=== PATIENT | male | born 1970 | race Caucasian/White ===

== ENCOUNTER 2022-03-30 14:38 | Emergency (ER) | payer OTHER, SELFPAY ==
[2022-03-30 15:26] VITALS: BP 145/93; PULSE 78; RESP 18; TEMP 37.1; O2SAT 96; BMI 35.6
--- NOTE | 2022-03-30 16:45 | ED_ITS ---
HPI - General Adult General Time Seen by Provider: 16:44 Date Seen: 03/30/22 Chief complaint: Unspecified Complaint, Adult Stated complaint: NEEDS A COVID TEST Time Seen by Provider: 03/30/22 16:37 Source: patient Mode of arrival: ambulatory Limitations: no limitations History of Present Illness HPI narrative: Patient is in the and has been deployed to [facility] Monday morning at 3:00 a.m.. He needs a PCR COVID test prior to travel [facility] he states he was told he had to have a doctor's order which he did not have. Patient has no symptoms of COVID. Patient states he is vaccinated for COVID. Related Data Home Medications Medication Instructions Recorded Confirmed lisinopril 10 mg tablet mg 03/30/22 testosterone cypionate 200 mg/mL mg 03/30/22 intramuscular oil Allergies Allergy/AdvReac Type Severity Reaction Status Date / Time No Known Drug Allergies Allergy Verified 03/30/22 15:30 Review of Systems Status of ROS: Reports: other ( Patient has no current symptoms of any illness, just needs COVID PCR.) PFSH PFS Medical History Hypertension Lymph node enlargement Testicle cancer Surgical History History of orchiectomy Social History Smoking Status: Never smoker Do you use any of these nicotine containing products: None Second hand tobacco smoke exposure: No How often do you have a drink containing alcohol: never How often do you have six or more drinks on one occasion: Never AUDIT-C Alcohol total score: 0 Non-prescribed substance use: denies use service: Yes Exam Const: Vital Signs, click to edit/add: Vital Signs - 24 hr 03/30/22 15:26 Temperature 98.7 F Pulse Rate [Right Radial] 78 Respiratory Rate 18 Blood Pressure [Ri ght Upper Arm] 145/93 H Pulse Oximetry 96 Documenting provider has reviewed patient's vital signs: yes Common normals: no apparent distress General appearance: cooperative and comfortable Eye: Common normals: PERRL and conjunctivae normal Conjunctiva: conjunctiva(e) normal Pupil: PERRL Resp: Common normals: normal respiratory effort and clear to auscultation bilaterally Effort & inspection: able to speak in complete sentences Auscultation: clear to auscultation bilaterally Cardio: Common normals: regular rate and regular rhythm Rate: regular rate Rhythm: regular rhythm Course Course Hospital Course: Will order the COVID PCR for the patient. We will get him registered. He will likely leave before his PCR is done and either pick the results up later or we will get it to him tomorrow when he is down here for work. Vital Signs Vital signs: Initial Vital Signs Temperature 98.7 F 03/30/22 15:26 Temperature Source Temporal Artery Scan 03/30/22 15:26 Pulse Rate 78 03/30/22 15:26 Pulse Rhythm 03/30/22 15:26 Pulse Strength 0+ Absent 03/30/22 15:26 Respiratory Rate 18 03/30/22 15:26 Blood Pressure 145/93 H 03/30/22 15:26 Blood Pressure Mean 110 03/30/22 15:26 Blood Pressure Position Sitting 03/30/22 15:26 Pulse Oximetry 96 03/30/22 15:26 Oxygen Delivery Method 03/30/22 15:26 Vital Signs Temperature 98.7 F 03/30/22 15:26 Pulse Rate 78 03/30/22 15:26 Respiratory Rate 18 03/30/22 15:26 Blood Pressure 145/93 H 03/30/22 15:26 Pulse Oximetry 96 03/30/22 15:26 Temperature 98.7 F 03/30/22 15:26 Pulse Rate 78 03/30/22 15:26 Respiratory Rate 18 03/30/22 15:26 Blood Pressure 145/93 H 03/30/22 15:26 Pulse Oximetry 96 03/30/22 15:26 Medical Decision Making Lab Data Labs: Lab Results 03/30/22 Range/Units 15:35 SARS-CoV-2 (PCR) Negative SARS-CoV-2 (Negative) Discharge Plan Discharge Clinical Impression: Encounter for screening for COVID-19 Condition: Stable Additional Instructions: Your COVID rapid PCR is negative here on testing today. A copy of your test result has been provided. Activity Level: No Restrictions Prescriptions: No Action lisinopril 10 mg tablet 0RF Label Comments: TAKE 1 TABLET BY MOUTH DAILY testosterone cypionate 200 mg/mL oil 0RF Label Comments: ADMINISTER 0.6 ML IN THE MUSCLE WEEKLY Follow Up/Referrals: Jose Manuel Hernandez MD [Primary Care Provider] - Stand Alone Forms: [employer] Info Instructions
[2022-03-30 16:49] LABS: SARS PCR* Negative SARS-CoV-2 (Negative)
== END 2022-03-30 17:31 | disposition home or self-care (01) ==
PROVIDERS: Emergency Provider Family Medicine; PCP Family Medicine
DX: Z11.52 Encounter for screening for COVID-19 (principal)
CPT/HCPCS: 87635; 99281

== ENCOUNTER 2022-04-27 10:36 | Emergency (ER) | payer OTHER, SELFPAY ==
[2022-04-27 10:41] VITALS: BP 145/97; RESP 18; TEMP 36.6; O2SAT 96; BMI 34.9
--- NOTE | 2022-04-27 11:12 | ED.GENADULT ---
HPI - General Adult General Time Seen by Provider: 11:00 Date Seen: 04/27/22 Chief complaint: Unspecified Complaint, Adult Stated complaint: Need PCR test for deployment Source: patient and RN notes reviewed Mode of arrival: ambulatory Limitations: no limitations History of Present Illness HPI narrative: Patient is in the and is deploying to [place]. I had seen him recently for the exact same circumstances. He just needs a PCR test to clear for travel in to [place]. He did end up going to [place] last time I saw him. Right now he has no complaints of being ill, no respiratory symptoms, no concerns. complaint: Needs PCR testing for COVID prior to travel to [place]. Related Data Home Medications Medication Instructions Recorded Confirmed testosterone cypionate 200 mg/mL mg 03/30/22 intramuscular oil Previous Rx's Medication Instructions Recorded lisinopril 10 mg tablet 10 mg PO DAILY #90 tabs 04/13/22 Allergies Allergy/AdvReac Type Severity Reaction Status Date / Time No Known Drug Allergies Allergy Verified 03/30/22 15:30 Review of Systems Narrative: As per HPI PFSH PFS Medical History Hypertension Lymph node enlargement Testicle cancer Surgical History History of orchiectomy Social History Smoking Status: Never smoker Do you use any of these nicotine containing products: None Second hand tobacco smoke exposure: No How often do you have a drink containing alcohol: never How often do you have six or more drinks on one occasion: Never AUDIT-C Alcohol total score: 0 Non-prescribed substance use: denies use service: Yes Exam Const: Vital Signs, click to edit/add: Vital Signs - 24 hr 04/27/22 10:41 Temperature 97.9 F Respiratory Rate 18 Blood Pressure [Ri ght Upper Arm] 145/97 H Pulse Oximetry 96 Oxygen Delivery Me thod Room Air Documenting provider has reviewed patient's vital signs: yes Common normals: no apparent distress, oriented x3, no limitations, healthy appearing and alert Neuro: Common normals: oriented x3 Sensorium/orientation: alert Course Course Hospital Course: We will proceed with obtaining the COVID PCR. We will print the results for the patient and discharge once we have the result. Vital Signs Vital signs: Initial Vital Signs Temperature 97.9 F 04/27/22 10:41 Temperature Source Temporal Artery Scan 04/27/22 10:41 Respiratory Rate 18 04/27/22 10:41 Blood Pressure 145/97 H 04/27/22 10:41 Blood Pressure Mean 113 04/27/22 10:41 Pulse Oximetry 96 04/27/22 10:41 Oxygen Delivery Method 04/27/22 10:41 Vital Signs Temperature 97.9 F 04/27/22 10:41 Respiratory Rate 18 04/27/22 10:41 Blood Pressure 145/97 H 04/27/22 10:41 Pulse Oximetry 96 04/27/22 10:41 Oxygen Delivery Method 04/27/22 10:41 Temperature 97.9 F 04/27/22 10:41 Respiratory Rate 18 04/27/22 10:41 Blood Pressure 145/97 H 04/27/22 10:41 Pulse Oximetry 96 04/27/22 10:41 Oxygen Delivery Method 04/27/22 10:41 Medical Decision Making Lab Data Lab results reviewed: Yes I reviewed the patient's lab results Labs: Lab Results 04/27/22 Range/Units 10:55 SARS-CoV-2 (PCR) Negative SARS-CoV-2 (Negative) Critical Care Time Critical Care Time Critical Care Time: No Discharge Plan Discharge Clinical Impression: Encounter for screening for COVID-19 Patient Disposition: Home, Self-Care Condition: Stable Instructions: COVID-19: Slow the Coronavirus Spread (ED) Prescriptions: No Action testosterone cypionate 200 mg/mL oil Label Comments: ADMINISTER 0.6 ML IN THE MUSCLE WEEKLY lisinopril 10 mg tablet 10 mg PO DAILY Qty: 90 1RF Follow Up/Referrals: Jose Manuel Hernandez MD [Primary Care Provider] - Stand Alone Forms: [employer] Info Instructions
--- NOTE | 2022-04-27 11:29 | ED.NURSE ---
was seen per dr murry. test was done. to call with results. did get registered and left.
[2022-04-27 11:56] LABS: SARS PCR* Negative SARS-CoV-2 (Negative)
--- OUTSIDE RECORDS SUMMARY | 2022-05-04 01:49 | XMS_ITS | Encounter Summary ---
:1970 Author Organization [facility] Address [address] [place] [address]. [place] [address] Care Team Providers Name Role Phone Unavailable Primary Care Provider Unavailable Encounter Details Date Type Department Care Team Description 11/03/2018 Travel Social History Tobacco Use Types Packs/Day Years Used Date Never Smoker Smokeless Tobacco: Never Used Alcohol Use Standard Drinks/Week Comments Yes 0 (1 standard drink = 0.6 oz pure alcoho l) socially Alcohol Habits Answer Date Recorded How often do you have a drink containing alcohol? Not asked How many drinks containing alcohol do you have on a typical Not asked day when you are drinking? How often do you have six or more drinks on one occasion? No t asked Comment: socially 11/03/2018 Sex Assigned at Date Recorded Not on file documented as of this encounter Plan of Treatment Not on filedocumented as of this encounter Visit Diagnoses Not on filedocumented in this encounter
--- OUTSIDE RECORDS SUMMARY | 2022-05-04 01:49 | XMS_ITS | Encounter Summary ---
:1970 Author Organization [facility] Address [address] [place] [address] Support Name Relationship Address Phone TRACY VU Unavailable [address] [place] [address] TRACY VU Unavailable [address] [place] [address] Selected Encounter This section includes the information on record at [place] for the Encounter. Date/Time Encounter Type Encounter Reason Provider Source Description Oct 04, 2021 11:58 Outpatient EMERGENCY DEPT JENNYFER MONTERO AM Encounter [facility] Encounter Template [facility] used by [facility] Lab Results: +/- 30 days of the encounter This section includes the Chemistry and Hematology Lab Results on record with [facility] for the patient. Radiology Reports and Pathology Reports are provided separately, in subsequent sections.Lab Results This section contains the Chemistry/Hematology Results that were resulted 30 days before or 30 daysafter the date of the Encounter. Date/Time Source Result Type Result - Unit Interpretation Reference Range Comment Oct 04, 2021 [facility] COVID-19 AND FLU/RSV DIAG Sp ecimen Type: NASOPHARYNGEAL 12:03 PM PANEL(CEPHEID) Comment: Irina rodriguez GeneXpert (618) Ordering Provid er: JENNYFER MONTERO Report Released Date/Time: Oct 04, 2021 11:22 AM Reporting Lab: [facility] [address] [facility] [address] [facility] [address] Performing Lab: [facility] [address] [facility] [address] COVID-19 (CEPHEID) DETECTED HH Not Detecte d INFLUENZA A (PCR) Not Detected Not Detec louis INFLUENZA B (PCR) Not Detected Not Detec louis RSV (PCR) Not Detected Not Detected Encounter Notes: All associated encounter notes This section contains the clinical notes associated to the Encounter. Date/Time Encounter Note(s) Provider Source Oct 04, 2021 01:14 PM PHYSICIAN EMERGENCY DEPT NOTE: ZHANNA MONTERO [facility] LOCAL TITLE: EMERGENCY DEPT NOTE STANDARD TITLE: PHYSICIAN EMERGENCY DEPT NOTE DATE OF NOTE: OCT 04, 2021@13:14 ENTRY DATE: OCT 04, 2021@13:14:13 AUTHOR: JENNYFER MONTERO EXP COSIGNER: URGENCY: STATUS: COMPLETED COVID-19 CEPHEID: DETECTED H* INFLUENZA A (PCR): Not Detected INFLUENZA B (PCR): Not Detected RSV (PCR): Not Detected COVID-19 Telephone Follow-Up Patient notified of positive COVID-19 test resul t. Symptoms: The patient was asked if in the last 14 days th ey have had new onset of any COVID-19 symptoms. They report the following: No symptoms Within the past 14 days, the patient reports no exposure to someone with a febrile/respiratory illness or someone with a k nown or suspected case of COVID-19 (within 6 feet for > 15 minutes). Care Disposition The patient is stable. Patient can care for self at home. Plan and Patient Education Time spent: 5 minutes /kristen/ JENNYFER MONTERO APRN NURSE PRACTITIONER Signed: 10/04/2021 13:14
--- OUTSIDE RECORDS SUMMARY | 2022-05-04 01:49 | XMS_ITS | Clinical Summary ---
:1970 Author Organization [facility] Address [address] [facility] [place] [address] Care Team Providers Name Role Phone Clinic, Keturah Betancourt Primary Care Provider [phone] Medications Medication Sig Dispensed Refills Start Date End Date Status dexamethasone (DECADRON) Take 8 mg by 2 tablet 0 11/03/2018 Active 4 MG tablet mouth once for 1 dose Take on Monday (11/05) is still symptomatic. lisinopril (ZESTRIL) 10 Take 1 tablet 30 tablet 0 03/25/2020 Active MG tablet (10 mg) by mouth daily for 30 doses Social History Tobacco Use Types Packs/Day Years [...] Assigned at Date Recorded Not on file Last Filed Vital Signs Vital Sign Reading Time Taken Comments Blood Pressure 149/85 03/25/2020 7:30 PM CDT Pulse 71 03/25/2020 7:30 PM CDT Temperature 36.8 ??C (98.2 ??F) 03/25/2020 5:26 PM CDT Respiratory Rate 22 03/25/2020 7:30 PM CDT Oxygen Saturation 93% 03/25/2020 7:30 PM CDT Inhaled Oxygen Concentration - - Weight 111.1 kg (245 lb) 11/03/2018 4:33 AM MEETING FACILITATOR Height 180.3 cm (5' 11) 11/03/2018 4:33 AM MEETING FACILITATOR Body Mass Index 34.17 11/03/2018 4:33 AM MEETING FACILITATOR Plan of Treatment Health Maintenance Due Date Last Done Comments ADVANCE CARE PLANNING 1970 ANNUAL REVIEW OF HM ORDERS 1970 CT COLONOGRAPHY 1972 FIT-DNA (Cologuard) 1972 FIT 1970 FLEX SIG 1970 PREVENTIVE CARE VISIT 1972 COVID-19 Vaccine (#1) 03/11/1973 COLONOSCOPY 1982 COLORECTAL CANCER SCREENING 1982 HIV SCREENING 1987 HEPATITIS C SCREENING 1990 DTAP/TDAP/TD IMMUNIZATION 1997 1972 (1 - Tdap) LIPID 2007 PHQ-2 (once per calendar 09/25/2021 year) INFLUENZA VACCINE (#1) 2022 08/14/2019, 08/11/2018, 06/14/2014, Additional history exists ZOSTER IMMUNIZATION (1 of 2022 2) IPV IMMUNIZATION Aged Out 01/16/2010 No longer eligi ble based on patient 's age to complete this topic HEPATITIS B IMMUNIZATION Aged Out 08/13/2010, 03/07/2010, No longer eligible 01/16/2010 based on patient 's age to complete this topic MENINGITIS IMMUNIZATION Aged Out No longe r eligible based on patient 's age to complete this topic Pneumococcal Vaccine: Aged Out No longer eligible Pediatrics (0 to 5 Years) based on patient's age and At-Risk Patients (6 to to co mplete this topic 64 Years) Insurance Payer Benefit Plan Subscriber ID Effective Dates Phone Address Type / Group /[employer] [id number] 2017-Presen [phone] [address] [employer] [place] [place] [id number] /[employer] [id number] 2018-[employer] [phone] [employer] [employer] [address] [place] [id number] Care Teams Partition 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
--- OUTSIDE RECORDS SUMMARY | 2022-05-04 01:49 | XMS_ITS | Encounter Summary ---
:1970 Author Organization [facility] Address [facility] [facility] [place] [address] Care Team Providers Name Role [facility] [phone] Encounter Details Date Type Department Care Team Description 03/25/2020 Travel Social History Tobacco Use Types Packs/Day [...] Assigned at Date Recorded Not on file COVID-19 Exposure Response Date Recorded In the last month, have you been in contact with Yes 03/25/2020 5:26 PM CDT someone who was confirmed or suspected to have Coronavirus / COVID-19? documented as of this encounter Plan of Treatment Not on filedocumented as of this encounter Visit Diagnoses Not on filedocumented in this encounter Care Teams Social Service Worker Relationship Specialty Start Date End Date [facility], Keturah Betancourt PCP - General 03/25/20 [address] [place] [address] documented as of this encounter
--- OUTSIDE RECORDS SUMMARY | 2022-05-04 01:49 | XMS_ITS | Encounter Summary ---
:1970 Author Organization [facility] Address [facility] [place] [address] Care Team Providers Name Role Phone Unavailable Primary Care Provider Unavailable Reason for Visit Reason Onset Date Comments Walk In Clinic 10/28/2011 back pain Encounter Details Date Type Department Care Team Description 10/28/2011 Telephone [facility] [place] [address] [facility], [address] [place] [address] Social History Tobacco Use Types Packs/Day Years Used Date Never Assessed Sex Assigned at Date Recorded Not on file documented as of this encounter Miscellaneous Notes Telephone Encounter - Shyann Gordon - 10/28/2011 3:44 PM CST Patient walked in, states he slept on his back wrong and all day he has been having trouble breathing, having excruciating pain. Advised to seek emergency care related to trouble breathing and pain. Patient's left arm was bent up, cried out in pain occasionally, trouble getting out of chair. Asked to call someone for him or the ambulance to bring him to the hospital. He declined and left clinic. Patient agreed with plan. Shyann Gordon RN Message Handled by Nurse Triage HAND documented in this encounter Plan of Treatment Not on filedocumented as of this encounter Visit Diagnoses Not on filedocumented in this encounter
--- OUTSIDE RECORDS SUMMARY | 2022-05-04 01:49 | XMS_ITS | Encounter Summary ---
:1970 Author Organization [place] Address [facility]0 [facility] [place] [address] Care Team Providers Name Role Phone Clinic, Keturah Betancourt Primary Care Provider [phone] Reason for Visit Reason Comments Palpitations Fatigue Diarrhea Encounter Details Date Type Department Care Team Description 03/25/2020 Emergency [facility] Jessica Tian MD Hypertension, [facility] Emergency Dep t [facility] unspecified type [address] [place], [place] [address] [facility] [id number] [facility] [phone] [place] [address] (Wo rk) Social History Tobacco Use Types Packs/Day Years [...] / COVID-19? documented as of this encounter Last Filed Vital Signs Vital Sign Reading Time Taken Comments Blood Pressure 149/85 03/25/2020 7:30 PM CDT Pulse 71 03/25/2020 7:30 PM CDT Temperature 36.8 ??C (98.2 ??F) 03/25/2020 5:26 PM CDT Respiratory Rate 22 03/25/2020 7:30 PM CDT Oxygen Saturation 93% 03/25/2020 7:30 PM CDT Inhaled Oxygen Concentration - - Weight - - Height - - Body Mass Index - - documented in this encounter Discharge Instructions AttachmentsThe following attachments cannot be sent through Care Everywhere. Hypertension, New (Begin Treatment) (Telugu)documented in this encounter Medications at Time of Discharge Medication Sig Dispensed Refills Start Date End Date lisinopril (ZESTRIL) 10 MG Take 1 tablet (10 mg) 30 tablet 0 03/25/2020 tablet by mouth daily for 30 doses documented as of this encounter ED Notes Verna Singh RN - 03/25/2020 7:55 PM CDT Pt provided with discharge paperwork and educated on recommended follow-up with PCP. Pt educated on how to manage symptoms at home and how to take prescription for lisinopril. Pt voiced understanding and denied any questions at discharge. Sathish Tian MD - 03/25/2020 5:19 PM CDT History Chief Complaint: Palpitations; Fatigue; and Diarrhea The history is provided by the patient. Tiago See is a 49 year old male with a history of testicular cancer who presents with concerns ofelevated blood pressure and palpitations. The patient notes feeling like his blood pressure has beenhigh the last few months. He also notes occasional 20 minute long episodes of palpitations. He went in to have his blood pressure checked a month ago and it was elevated at ~173/95, however the next two mornings it was with in normal range. He is not on any blood pressure medications. He has recently returned from a few month long trip to [place] where he was traveling for 34 hours. However, he does not believe he has had any COVID exposure. He does note though that his ankles and body were swollen following the trip. He does believe anxiety could be contributing to his symptoms. He denies fever andcough. He does not have a PCP, but has labs checked yearly for being in the [employer]. He has had difficulty losing weight recently as well despite exercising regularly and eating healthy. He was seen at [facility] where they did an EKG prior to sending him to the ED. Allergies: No Known Drug Allergies Medications: The patient is not currently on any daily prescription medications. Past Medical History: Testicular cancer Past Surgical History: Testicular surgery Family History: History reviewed. No pertinent family history. Social History: The patient was unaccompanied to the ED. Smoking Status: never Smokeless Tobacco: never Alcohol Use: yes Drug Use: no Marital Status: Single [1] Review of Systems Constitutional: Negative for fever. Respiratory: Negative for cough. Cardiovascular: Positive for palpitations. All other systems reviewed and are negative. Physical Exam Patient Vitals for the past 24 hrs: BP Temp Temp src Pulse Heart Rate Resp SpO2 03/25/20 1930 (!) 149/85 -- -- 71 73 22 93 % 03/25/20 1900 (!) 151/90 -- -- 76 71 21 94 % 03/25/20 1845 -- -- -- -- 84 23 94 % 03/25/20 1830 (!) 151/86 -- -- 75 75 -- -- 03/25/20 1800 (!) 138/94 -- -- 80 79 -- -- 03/25/20 1726 (!) 167/101 98.2 ??F (36.8 ??C) Oral 82 -- 18 99 % Physical Exam General: Patient is alert and cooperative. Overweight. HENT: Normal nose, oropharynx. Moist oral mucosa. Eyes: EOMI. Normal conjunctiva. Neck: Normal range of motion and appearance. Cardiovascular: Normal rate, regular rhythm and normal heart sounds. Pulmonary/Chest: Effort normal. No wheezing or crackles. Abdominal: Soft. No distension or tenderness. Musculoskeletal: Normal range of motion. No edema or tenderness. Neurological: oriented, normal strength, sensation, and coordination. Skin: Warm and dry. No rash or bruising. Psychiatric: Normal mood and affect. Normal behavior and judgement. Emergency Department Course ECG: Indication: palpitations ECG taken at 1736, ECG read at [address] Asmita MD Sinus rhythm Normal ECG Rate 77 bpm. MA interval 138. QRS duration 92. QT/QTc 356/402. P-R-T axes 11 29 -3. Laboratory: Laboratory findings were communicated with the patient who voiced understanding of the findings. TSH with free T4 reflex: 1.24 Troponin (Collected 1744): <0.015 CBC: AWNL (WBC 10.0, HGB 17.5, PLT 283) CMP: ALT 91 (H), AST 49 (H) o/w WNL (Creatinine 1.19) Emergency Department Course: Past medical records, nursing notes, and vitals reviewed. 1739 I performed an exam of the patient as documented above. EKG obtained in the ED, see results above. IV was inserted and blood was drawn for laboratory testing, results above. 1939 I rechecked the patient and discussed the results of his workup thus far. Findings and plan explained to the Patient. Patient discharged home with instructions regarding supportive care, medications, and reasons to return. The importance of close follow-up was reviewed. The patient was prescribed Lisinopril. I personally reviewed the laboratory results with the Patient and answered all related questions prior to discharge. Impression & Plan Medical Decision Making: Afebrile 49-year-old male has presented with concerns for elevated blood pressure readings for the past several months. He is having some occasional palpitations and is vaguely been feeling off. He is describing fatigue some lower extremity edema and decreased exercise tolerance. He does not have an es tablished history of hypertension. He is in the [place] and just recently returned from [facility]. He hashad no recent fevers, URI symptoms, specific GI symptoms or loss of smell. There is no concern for COVID-19. Examinations essentially unremarkable aside from him being a bit overweight. Blood pressure readings have consistently been elevated, generally in the 150/90 range. Some screening laboratory tests are essentially unremarkable. He has normal renal function, CBC, TSH, and undetectable troponin. Liver transaminases are minimally elevated of dubious clinical significance. An EKG simply demonstrated a sinus rhythm with no signs of LVH or ectopy and normal intervals. These findings were discussed w ith him. He does not require any emergent medical interventions. He likely has hypertension and I have recommended that he establish primary care and follow-up next available to address that further. Ioffered him a prescription for an introductory dose of an antihypertensive for him to consider particularly if he accept a home blood pressure cuff as I recommended and his blood pressures remain elevated. He was prescribed lisinopril 10 mg daily. There is no concern for an infectious process or indication for any other ED based testing at this time. Diagnosis: ICD-10-CM 1. Hypertension, unspecified type I10 Disposition: Discharged to home. Discharge Medications: Discharge Medication List as of 03/25/2020 7:50 PM START taking these medications Details lisinopril (ZESTRIL) 10 MG tablet Take 1 tablet (10 mg) by mouth daily for 30 doses, Disp-30 tablet,R-0, Local Print Scribe Disclosure: I, Margie Pillai, am serving as a scribe at 5:40 PM on 03/25/2020 to document services personally performed by Sathish Tian MD based on my observations and the provider's statements to me. 03/25/2020 [facility] Sathish Tian MD 03/26/20 1320 documented in this encounter Plan of Treatment Not on filedocumented as of this encounter Procedures Procedure Name Priority Date/Time Associated Comments Diagnosis CBC WITH PLATELETS & STAT 03/25/2020 5:45 PM R esults for this DIFFERENTIAL CDT procedure are i n the results section. TSH WITH FREE T4 STAT 03/25/2020 5:45 PM Resul ts for this REFLEX CDT procedure are i n the results section. TROPONIN I STAT 03/25/2020 5:45 PM Results f or this CDT procedure are i n the results section. COMPREHENSIVE STAT 03/25/2020 5:45 PM Results for this METABOLIC PANEL CDT procedure ar e in the results section. EKG 12-LEAD, TRACING STAT 03/25/2020 5:36 PM R esults for this ONLY CDT procedure are i n the results section. documented in this encounter Results TSH with free T4 reflex (03/25/2020 5:45 PM CDT) P athologist Signature TSH 1.24 0.40 - 4.00 03/25/2020 [facility] mU/L 6:24 PM CDT HOSPITAL Specimen Anatomical Collection Method Collection Time Receive d Time (Source) Location / / Volume Laterality Blood specimen 03/25/2020 5:45 PM 020 5:53 (specimen) CDT PM CDT Sathish Tian MD LAB - BLOOD ORDERABLES Performing Organization Address [facility] Phon e Number M [facility] [address], [place] [address] [facility] [address], [place] [address] [address] Troponin I (03/25/2020 5:45 PM CDT) athologist Signature Troponin I ES <0.015 0.000 - 03/25/2020 [place] 0.045 ug/L 6:18 PM [facility] Comment: The 99th percentile for upper reference range is 0.045 ug/L. ??Troponin values in the range of 0.045 - 0.120 ug/L may b e associated with risks of adverse clinical events. Specimen Anatomical Collection Method Collection Time Receive d Time (Source) Location / / Volume Laterality Blood specimen 03/25/2020 5:45 PM 020 5:53 (specimen) CDT PM CDT Sathish Tian MD LAB - BLOOD ORDERABLES Performing Organization Address [facility] Phon e Number [facility] [address], [place] [address] [facility] [address], [place] [address] [address] (ABNORMAL) Comprehensive metabolic panel (03/25/2020 5:45 PM CDT) athologist Signature Sodium 136 133 - 144 03/25/2020 [place] mmol/L 6:07 PM [facility] Potassium 3.8 3.4 - 5.3 03/25/2020 [place] mmol/L 6:07 PM [facility] Chloride 102 94 - 109 03/25/2020 [place] mmol/L 6:07 PM [facility] Carbon Dioxide 29 20 - 32 03/25/2020 [place] mmol/L 6:14 PM [facility] Anion Gap 5 3 - 14 03/25/2020 [place] mmol/L 6:14 PM [facility] Glucose 93 70 - 99 03/25/2020 [place] mg/dL 6:14 PM [facility] Urea Nitrogen 16 7 - 30 03/25/2020 [place] mg/dL 6:14 PM [facility] Creatinine 1.19 0.66 - 03/25/2020 [place] 1.25 mg/dL 6:14 PM [facility] GFR Estimate 72 >60 03/25/2020 [place] mL/min/{1. 6:14 PM [facility] 73_m2} HOSPITAL Comment: Non GFR Calc Starting 09/11/2018, serum creatinine ba sed estimated GFR (eGFR) will be calculated using the Chronic Kidney Dise [facility] Epidemiology Collaboration (CKD-EPI) equation. GFR Estimate If 83 >60 mL/min/{1.73_m2} 03/25/2020 6: 14 PM [facility] Comment: GFR Calc Starting 09/11/2018, serum creatinine ba sed estimated GFR (eGFR) will be calculated using the Chronic Kidney Dise [facility] Epidemiology Collaboration (CKD-EPI) equation. Calcium 9.0 8.5 - 10.1 03/25/2020 6:14 PM [place] R IDGES mg/dL [facility] Bilirubin Total 0.5 0.2 - 1.3 mg/dL 03/25/2020 6:16 PM [facility] Albumin 4.0 3.4 - 5.0 g/dL 03/25/2020 6:16 PM [facility] Protein Total 8.0 6.8 - 8.8 g/dL 03/25/2020 6:16 PM [facility] Alkaline Phosphatase 78 40 - 150 U/L 03/25/2020 6:16 PM [facility] ALT 91 (H) 0 - 70 U/L 03/25/2020 6:16 PM [facility] AST 49 (H) 0 - 45 U/L 03/25/2020 6:16 PM [facility] Specimen Anatomical Collection Method Collection Time Receive d Time (Source) Location / / Volume Laterality Blood specimen 03/25/2020 5:45 PM 020 5:53 (specimen) CDT [facility] Sath[facility] MD LAB - BLOOD ORDERABLES Performing Organization Address City/State/ZIP Code Phon e Number M [facility] [address], [place] [address] [facility] [address] [place], [place] [address], [facility] [phone] [place] [address] [place] [address], [facility] [phone] [facility] CBC with platelets differential (03/25/2020 5:45 PM CDT) [facility] gist Method Time Signature WBC 10.0 4.0 - 03/25/2020 [facility] 11.0 5:59 PM [facility] 10e9/L [facility] RBC Count 5.62 4.4 - 5.9 03/25/2020 [facility] 10e12/L 5:59 PM [facility] Hemoglobin 17.5 13.3 - 03/25/2020 [facility] 17.7 g/dL 5:59 PM [facility] Hematocrit 52.4 40.0 - 03/25/2020 [facility] 53.0 % 5:59 PM [facility] MCV 93 78 - 100 03/25/2020 [facility] fl 5:59 PM [facility] MCH 31.1 26.5 - 03/25/2020 [facility] 33.0 pg 5:59 PM [facility] MCHC 33.4 31.5 - 03/25/2020 [facility] 36.5 g/dL 5:59 PM [facility] RDW 12.8 10.0 - 03/25/2020 [facility] 15.0 % 5:59 PM [facility] Platelet Count 283 150 - 450 03/25/2020 [facility] 10e9/L 5:59 PM [facility] Diff Method Automated 03/25/2020 [facility] Method 5:59 PM [facility] % Neutrophils 58.6 % 03/25/2020 [facility] 5:59 PM [facility] % Lymphocytes 27.3 % 03/25/2020 [facility] 5:59 PM [facility] % Monocytes 8.1 % 03/25/2020 [facility] 5:59 PM [facility] % Eosinophils 4.4 % 03/25/2020 [facility] 5:59 PM [facility] % Basophils 0.9 % 03/25/2020 [facility] 5:59 PM CDT [facility] % Immature 0.7 % 03/25/2020 [facility] Granulocytes 5:59 PM [facility] Nucleated RBCs 0 0 /100 03/25/2020 [facility] 5:59 PM [facility] Absolute 5.9 1.6 - 8.3 03/25/2020 [place] Neutrophil 10e9/L 5:59 PM [facility] Absolute 2.7 0.8 - 5.3 03/25/2020 [facility] Lymphocytes 10e9/L 5:59 PM [facility] Absolute 0.8 0.0 - 1.3 03/25/2020 [facility] Monocytes 10e9/L 5:59 PM [facility] Absolute 0.4 0.0 - 0.7 03/25/2020 [facility] Eosinophils 10e9/L 5:59 PM [facility] Absolute 0.1 0.0 - 0.2 03/25/2020 [place] Basophils 10e9/L 5:59 PM [facility] Abs Immature 0.1 0 - 0.4 03/25/2020 [place] Granulocytes 10e9/L 5:59 PM [facility] Absolute 0.0 03/25/2020 [place] Nucleated RBC 5:59 PM [facility] Specimen Anatomical Collection Method Collection Time Receive d Time (Source) Location / / Volume Laterality Blood specimen 03/25/2020 5:45 PM 020 5:53 (specimen) CDT PM CDT Sathish Tian MD LAB - BLOOD ORDERABLES Performing Organization Address City/State/ZIP Code Phon e Number [facility] [address] [place] [address] [facility] [address] [phone] EKG 12-lead, tracing only (03/25/2020 5:36 PM CDT) [facility] gist Method Time Signature Interpretation ECG Click View RADIOLOGY Image link RESULTS to view waveform and result Specimen (Source) Anatomical Collection Method Collection Time Re ceived Time Location / / Volume Laterality 03/25/2020 5:36 PM CDT Sathish Tian MD ECG ORDERABLES Performing Organization Address City/[facility]/[place] [facility] [place] Number RADIOLOGY RESULTS documented in this encounter Visit Diagnoses Diagnosis Hypertension, unspecified type documented in this encounter Care Teams Fundraising Sale Representative Relationship Specialty Start Date End Date Clinic, Keturah Betancourt PCP - General 03/25/20 [address] [place] [address] documented as of this encounter
--- OUTSIDE RECORDS SUMMARY | 2022-05-04 01:49 | XMS_ITS | Continuity of Care Document ---
:1970 Author Organization [facility] Care Team Providers Name Role Phone DOD-[place] Unavailable Unavailable Problems Combined list of problems from Department of Defense and Veterans Affairs facilities. It does not include entries that were removed or entered in error. Problem Status Onset Date Problem Type Date of Comments Source Resolution Aftercare Following Inactive Condition [facility] Surgery Of Genitourinary System conditions Active Condition DoD influencing health status visit for: Active Condition DoD services physical testicular cancer Active Condition Do D Testes Mass (___cm) Active Condition DoD visit for: ears / Active Condition Do D hearing exam visit for: Active Condition DoD occupational health / fitness exam visit for: Inactive Condition [facility] administrative purpose Medications Combined list of outpatient medications from Department of Defense and Veterans Affairs facilities. Medications provided include 1) outpatient medications from the last 15 months, and 2) patient-reported medications. Medication Details Route Status Patient Prescription Prescription Last Ordering Order Source Instructions Expires Number Dispense Provider Date Date DICLOFENAC Active [id number] FELLAND, 07/29 / Pharmac SODIUM 2020 y Data (DICLOFENAC Transac SODIUM), 50 tion MG, TABLET Service , ORAL, Facilit PACK y PHARMACEUT, 100 ea. BOTTLE DICLOFENAC Active [id number] FELLAND, 08/27 / Pharmac SODIUM 1 2020 y Data (DICLOFENAC Transac SODIUM), 50 tion MG, TABLET Service DR ORAL, Facilit PACK y PHARMACEUT, 100 ea. BOTTLE diclofenac diclofenac sodium 50 mg oral delayed release tablet Order ed Ambulat sodium 50 Start Date: 07/29/21 ory mg oral Status: Ordered Ph armac delayed y release tablet LISINOPRIL Active [id number] FELLAND, 04/17 / Pharmac (lisinopril 2 2021 y Data ), 10 MG, Transac TABLET, tion ORAL, LUPIN Service PHARMACEU, Facilit 1000 ea. y BOTTLE LISINOPRIL Active [id number] FELLAND, 05/13 / Pharmac (lisinopril 1 2020 y Data ), 10 MG, Transac TABLET, tion ORAL, LUPIN Service PHARMACEU, Facilit 1000 ea. y BOTTLE LISINOPRIL Active [id number] FELLAND, 07/28 / Pharmac (lisinopril 1 2020 y Data ), 10 MG, Transac TABLET, tion ORAL, LUPIN Service PHARMACEU, Facilit 1000 ea. y BOTTLE LISINOPRIL Active [id number] FELL[facility], 01/05 / Pharmac (lisinopril 2 2021 y Data ), 10 MG, Transac TABLET, tion ORAL, LUPIN Service PHARMACEU, Facilit 1000 ea. y BOTTLE lisinopril lisinopril 10 mg oral tablet Ordered Ambulat 10 mg oral Start Date: 05/13/21 ory tablet Status: Ordered Pha rmac y LUER-SHANE Active [id number] [facility], 02/20/ P harmac SYRINGE-NEE 2021 y Data DLE Transac (syringe tion with Service needle,disp Facilit osable, 3 y mL), 25GX1, DISP SYRIN, MISCELL, BD MEDICAL SURG, 100 ea. BOX LUER-SHANE Active [id number] [facility], 04/20/ P harmac SYRINGE-NEE 2021 y Data DLE Transac (syringe tion with Service needle,disp Facilit osable, 3 y mL), 25GX1, DISP SYRIN, MISCELL, BD MEDICAL SURG, 100 ea. BOX TESTOSTERON TESTOSTERONE CYPIONATE (test osterone cypionate), 200 MG/ML, VIAL, INTRAMUSC, PERRIGO/PADAGIS, 1 ml Ordered Ambulat E CYPIONATE Start Date: 09/26/21 ory (testostero Status: Ordered Pharmac ne y cypionate), 200 MG/ML, VIAL, INTRAMUSC, PERRIGO/PAD AGIS, 1 ml TESTOSTERON Active [id number] [facility], 02/23/ Pharmac E CYPIONATE 2 2021 y Data (testostero Transac ne tion cypionate), Service 200 MG/ML, Facilit VIAL, y INTRAMUSC, PERRIGO/PAD AGIS, 1 ml VIAL TESTOSTERON Active [id number] [facility], 03/26/ Pharmac E CYPIONATE 2 2021 y Data (testostero Transac ne tion cypionate), Service 200 MG/ML, Facilit VIAL, y INTRAMUSC, PERRIGO/PAD AGIS, 1 ml VIAL TESTOSTERON Active [id number] [facility], 08/27/ Pharmac E CYPIONATE 1 2020 y Data (testostero Transac ne tion cypionate), Service 200 MG/ML, Facilit VIAL, y INTRAMUSC, PERRIGO/PAD AGIS, 1 ml VIAL TESTOSTERON Active [id number] [facility], 08/27/ Pharmac E CYPIONATE 1 2020 y Data (testostero Transac ne tion cypionate), Service 200 MG/ML, Facilit VIAL, y INTRAMUSC, PERRIGO/PAD AGIS, 1 ml VIAL TESTOSTERON Active [id number] [facility], / Pharmac E CYPIONATE 2 2021 y Data (testostero Transac ne tion cypionate), Service 200 MG/ML, Facilit VIAL, y INTRAMUSC, PERRIGO/PAD AGIS, 1 ml VIAL TESTOSTERON Active [id number] [facility], 11/24/ Pharmac E CYPIONATE 2 2021 y Data (testostero Transac ne tion cypionate), Service 200 MG/ML, Facilit VIAL, y INTRAMUSC, PERRIGO/PAD AGIS, 1 ml VIAL TESTOSTERON TESTOSTERONE CYPIONATE (TEST OSTERONE CYPIONATE), 200 MG/ML, VIAL, INTRAMUSC, SUN PHARMACEUTI, 1 ml Ordered Ambulat E CYPIONATE Start Date: 08/14/21 ory (TESTOSTERO Status: Ordered Pharmac NE y CYPIONATE), 200 MG/ML, VIAL, INTRAMUSC, SUN PHARMACEUTI , 1 ml TESTOSTERON Active [id number] [facility], 08/14 / Pharmac E CYPIONATE 2020 y Data (TESTOSTERO Transac NE tion CYPIONATE), Service 200 MG/ML, Facilit VIAL, y INTRAMUSC, SUN PHARMACEUTI , 1 ml VIAL Allergies, Adverse Reactions, Alerts Combined list of allergies from Department of Defense and Veterans Affairs facilities. It does not include entries that were removed or entered in error. Substance Category Reaction Severity Reaction Status Date Comments S ource type Reported No Known Drug Drug active [place] Allergies allergy allergy 2 Yoko ka Immunizations Combined list of available immunizations from the Department of Defense and Veterans Affairs facilities. Immunization Series Date Administered Site Reaction Lot CVX Drug St atus Comments Source Given By Number Code Bottom Ironer influenza, [id number] 158 GlaxoSmithKli comple t influenza Ambulat injectable, 2021 ne ed , or y quadrivalent injecta bl Pharmac e, y quadrival ent COVID Vaccine [id number] PFIZER complet C OVID Ambulat ? Pfizer 2020 ed Vaccine ? o ry Pfizer Pharmac y COVID Vaccine [id number] PFIZER complet C OVID Ambulat ? Pfizer 2020 ed Vaccine ? o ry Pfizer Pharmac y influenza, K 150 Seqirus complet infl uenza Ambulat injectable, 2019 ed , or y quadrivalent- inject abl Pharmac pf e, y quadrival ent-pf tetanus, K 115 sanofi complet tetanus , Ambulat diphtheria, 2019 pasteur ed diphth mae ory acellular a, Phar mac pertu is acellular y pertussis influenza, K 150 Seqirus complet infl uenza Ambulat injectable, 2018 ed , or y quadrivalent- inject abl Pharmac pf e, y quadrival ent-pf Influenza, 0 UNK 150 Seqirus (SEQ) comple t Influenza DoD injectable, 2018 ed , quadrivalent, inject abl preservative e, free quadrival ent, preservat elizabeth free influenza, 454G3 150 GlaxoSmithKli comple t influenza Ambulat injectable, 2017 ne ed , or y quadrivalent- inject abl Pharmac pf e, y quadrival ent-pf Influenza, 0 454G3 150 SmithKline complet I nfluenza DoD injectable, 2017 (SKB) ed , quadrivalent, inject abl preservative e, free quadrival ent, preservat elizabeth free influenza K 88 Seqirus complet influ rosio Ambulat virus 2016 ed virus ory vaccine, vaccine, Ph armac inactivated inactiva t y ed Influenza, 0 K 186 Seqirus (SEQ) comple t Influenza DoD injectable, 2016 ed , Madin [place] injectab l Canine e, Madin Kidney, [place] quadrivalent Canine with Kidney, preservative quadriv al ent with preservat elizabeth influenza, 7NT2G 158 GlaxoSmithKli comple t influenza Ambulat injectable, 2016 ne ed , or y quadrivalent injecta bl Pharmac e, y quadrival ent influenza, 0 NT2G 158 SmithKline complet i nfluenza DoD injectable, 2015 (SKB) ed , quadrivalent, inject abl contains e, preservative quadriv al ent, contains preservat elizabeth influenza, 140 complet influe nza Ambulat seasonal, 2014 ed , ory injectable-pf season al, Pharmac injectabl y e-pf Influenza, 0 140 (TRN) complet Influe nza DoD seasonal, 2014 ed , injectable, seasonal , preservative injecta bl free e, preservat elizabeth free influenza, 149 Medimmune Inc compl et influenza Ambulat live, 2013 ed , live, ory intranasal,qu intran asa Pharmac adrivalent l,quadriv y alent influenza, 0 149 MedImmune, complet influenza DoD live, 2013 Inc. (MED) ed , live, intranasal, intranas a quadrivalent l, quadrival ent influenza, 144 sanofi complet infl uenza Ambulat seasonal, 2012 pasteur ed , or y intradermal-p season al, Pharmac f intraderm y al-pf seasonal 0 144 Sanofi complet season al DoD influenza, 2012 Pasteur (PMC) ed i nfluenza intradermal, , preservative intrade rm free al, preservat elizabeth free influenza, [id number] 140 CSL Behring comple t influenza Ambulat seasonal, 2011 1A ed , ory injectable-pf season al, Pharmac injectabl y e-pf Influenza, 0 7740615 140 CSL complet Infl uenza DoD seasonal, 2011 1A Biotherapies, ed , injectable, Inc. (CSL) sea felicita, preservative injecta bl free e, preservat elizabeth free influenza 111 Medimmune Inc complet influenza Ambulat virus 2010 ed virus ory vaccine, live vaccin e, Pharmac live y influenza 0 111 MedImmune, complet in fluenza DoD virus 2010 Inc. (MED) ed virus vaccine, vaccine, live, live, attenuated, attenuat e for d, for intranasal intranasa use l use influenza 045P 111 Medimmune Inc compl et influenza Ambulat virus 2010 ed virus ory vaccine, live vaccin e, Pharmac live y hepatitis 104 GlaxoSmithKli compl et hepatitis Ambulat A-hepatitis B 2009 6BB ne ed A-hepa tit ory vaccine is B Pharma c vaccine y hepatitis A 3 BB 104 SmithKline comple t hepatitis DoD and hepatitis 2009 6BB (SKB) ed A and B vaccine hepatitis B vaccine influenza 0 045P 111 MedImmune, complet influenza DoD virus 2010 Inc. (MED) ed virus vaccine, vaccine, live, live, attenuated, attenuat e for d, for intranasal intranasa use l use hepatitis BB 104 GlaxoSmithKli compl et hepatitis Ambulat A-hepatitis B 2009 4AA ne ed A-hepa tit ory vaccine is B Pharma c vaccine y hepatitis A 2 BB 104 SmithKline comple t hepatitis DoD and hepatitis 2010 4AA (SKB) ed A and B vaccine hepatitis B vaccine tetanus, 01/16/ [id number] 115 GlaxoSmithKli comple t tetanus, Ambulat diphtheria, 2009 6BA ne ed diphther i ory acellular a, Phar mac pertu is acellular y pertussis hepatitis BB17 104 GlaxoSmithKli compl et hepatitis Ambulat A-hepatitis B 2010 4AA ne ed A-hepa tit ory vaccine is B Pharma c vaccine y poliovirus 476 10 Twistleune Inc comple t polioviru Ambulat vaccine, 2010 ed s ory inactivated vaccine, Pharmac inactivat y ed measles/mumps 9103510 03 Merck & complet measles/m Ambulat /rubella 2010 Company Inc ed umps/ rube ory virus vaccine lla vi darryl Pharmac vaccine y measles, 0 9103510 03 Merck (MSD) complet measles, DoD mumps and 2010 ed mumps and rubella virus rubell a vaccine virus vaccine poliovirus 0 B0476 10 Mamaherbune, complet p olioviru DoD vaccine, 2010 Inc. (MED) ed s inactivated vaccine, inactivat ed hepatitis A 1 BB17 104 [facility] hepatitis DoD and hepatitis 2009 4AA (SKB) ed A and B vaccine hepatitis B vaccine tetanus 0 01/16/ [id number] 115 [facility] complet te tanus DoD toxoid, 2009 6BA (B) ed toxoid, reduced reduced diphtheria diphtheri toxoid, and a toxoid , acellular and pertu is acellular vaccine, pertussis adsorbed vaccine, adsorbed measles/mumps 07/23/ UNK 03 Merck & complet m easles/m Ambulat /rubella 1996 Company Inc ed umps/ rube ory virus vaccine lla vi darryl Pharmac vaccine y Results Combined list of recent chemistry, hematology and other laboratory results from Department of Defense and Veterans Affairs, ranging from 15 months to all on record, depending upon the facility. Order Results Value Reference Date Interpretation Specimen Commen ts Source Name Range COVID- SARS-RELATE DETECTED 10/04 HH Specimen Ty pe: NASOPHARYNGEAL [place] 19 AND D /2021 Comment: Cephei d GeneXpert (778) IS [place] [facility] FLU/RS CORONAVIRUS Ordering Pr ovider: JENNYFER MONTERO RNA Report Released Date/Time: Oct 04, 2021 11:22 AM PANEL( [PRESENCE] Reporting La b: [facility] Sunpreme CEPHEI IN [address] [place] [id number] D) RESPIRATORY Performing Lab: [facility] SPECIMEN BY ONE [facility] [address] LUCR[place]IA WITH PROBE DETECTION COVID- INFLUENZA Not 10/04 Specimen Type: NASOPHARYNGEAL [place] 19 AND VIRUS A RNA Detected /2021 Comment: Jamie KeepTruckind AnedotXpert (021) IS [place] [facility] FLU/RS [PRESENCE] Ordering Pro vider: JENNYFER MONTERO IN UPPER Report Release d Date/Time: Oct 04, 2021 11:22 AM PANEL( RESPIRATORY Reporting L ab: [facility] Sunpre[facility] CEPHEI SPECIMEN BY ONE [facility] [address] D) [place] WITH Performing Lab : [facility] PROBE [address] [place] [facility] [address] DETECTION COVID- INFLUENZA Not 10/04 Specimen Type: NASOPHARYNGEAL [place] 19 AND VIRUS B RNA Detected /2021 Comment: Jamie [employer] GeneXpert (999) [place] [facility] FLU/RS [PRESENCE] Ordering Pro vider: JENNYFER MONTERO IN UPPER Report Release d Date/Time: Oct 04, 2021 11:22 AM PANEL( RESPIRATORY Reporting L ab: [facility] CEPHEI SPECIMEN BY ONE S [facility] [address] D) [place]CR[place] WITH Performing Lab : [facility] PROBE [address] [facility] [address] DETECTION COVID- RESPIRATORY Not 10/04 Specimen Typ e: NASOPHARYNGEAL [place] 19 AND SYNCYTIAL Detected /2021 Comment: Cep heid GeneXpert (618) IS [facility] FLU/RS VIRUS RNA Ordering Prov ider: JENNYFER MONTERO [PRESENCE] Report Relea sed Date/Time: Oct 04, 2021 11:22 AM PANEL( IN UPPER Reporting Lab: [facility] CEPHEI RESPIRATORY ONE [employer] [facility] [address] D) SPECIMEN BY Performing Lab: [facility] LUCRECIA WITH [address] [facility] [address] PROBE DETECTION Vital Signs Combined list of inpatient and outpatient Vital Signs from Department of Defense and Veterans Affairs, ranging from 12 months to all on record, depending upon the facility. Vital Sign Value Date Comments Source Ambulatory Phar cris Encounters Combined list of: 1) Encounters from Department of Veterans Affairs facilities going back up to the last 18 months, not all [place] inpatient encounters are included; 2) Encounters from the Department of Defense facilities going back up to 280 months. Location Location Encounter Encounter Reason Attending ADM DC Stat us Disposition Source Details Type Number For Provider Date Date Visit OUTPATIENT [id number] Geovannaanyi RADU, 04/03 Releas ed w/o NH t JUAN Limitations Dougie a(Occup [facility] [place]) OUTPATIENT [id number] Audiogr ELDON, 04/03 Released w/o NH am Limitations Dougie TIFFANIE a([facility] [place] OUTPATIENT [id number] noevandana CEVALLOSARMIDA, 04/09 Rele ased w/o NH t TAMMY Limitations Dougie physica a([facility] [id number] Home) OUTPATIENT [id number] Notes BRANDON 04/18 Admit louis ANGELES Weinstein Dougie by: pasha([facility] 18 Apr 2012 0934 ------- ------- ------- ------- -- Testrobynu kev [facility] TELE [id number] Anila ARMIDA 04/19 [place] CONSULT Entered Dougie by: pasha(Kadi turner Olegario FaustTAMMY - [place]) Mar 2012 0842 ------- ------- ------- ------- -- F/u on OUTPATIENT [id number] Notes BRANDON 04/26 Relea sed w/o NH Entered , Limitations Geronimo wise by: pasha([facility] ) 26 Apr 2012 1150 ------- ------- ------- ------- -- post op and lab work follow up OUTPATIENT [id number] Notes BRANDON 05/02 Relea sed w/o [place] Entered , Limitations Geronimo wise by: pasha([facility] ) 02 May 2012 1359 ------- ------- ------- ------- -- follow up OUTPATIENT [id number] PATIENT TAMMY OLSON 06/04 Rel eased w/o [facility] Weiss ODIN Limitations Louis([facility]) OUTPATIENT [id number] Anila ALFARO 06/04 Release d w/o [facility] Abhishek SANDOVAL Limitations Charisse o(S by: LORI Christensen ent) D 04 Jun 2012 1356 ------- ------- ------- ------- -- CASE DANNIE ENT OUTPATIENT [id number] Notes BRANDON 06/05 Relea sed w/o [facility] Weiss Entered , Limitations Mohini hinojosao(S by: JANELLE FAULKNER Urology LARRY 11 ) May 2012 0854 ------- ------- ------- ------- -- W/I pre-op DIRECT TO [place] [id number] SEN, 06/07 06/12 RETURN ED TO [facility] 7 ABBY S /2011 DUTY Louis MTF FROM OTHER THAN ER OR AP[facility] TELE [id number] Anila ALLISON, 06/12 Referred fo r [facility] Weiss CONSULT Entered PAPI Appointment Louis(S by: Trang BERGER Urology Y,VETO ) RE C 12 Jun 2012 1623 ------- ------- ------- ------- -- Postop call back OUTPATIENT [id number] post op BRANDON 06/18 Rel eased w/o [facility] follow- , ANGELES Limitations Di ego(S up/Lap D RPLND Urology Robotic ) Surgery OUTPATIENT [id number] Notes BRANDON 07/05 Relea sed w/o [facility] Entered ANGELES Limitations Di ego(S by: JANELLE FAULKNER Urology LARRY 11 ) Jun 2012 1041 ------- ------- ------- ------- -- F/u w/i OUTPATIENT [id number] Anila ALFARO, 07/13 Release d w/o [facility] Weiss Entered LORI Limitations Charisse stallworth(S by: LORI Christensen) D 13 Jul 2012 1354 ------- ------- ------- ------- -- CASE MANAGEM ENT TELE [id number] Anila BARKSDALE 08/03 [facility] Sa n CONSULT Entered NIMA Louis (S by: Trang BARKSDALE Urology ,LORRAINE ) LY L 02 Aug 20121956 ------- ------- ------- ------- -- Fit for duty TELE [id number] TAMMY OLSON 08/03 [facility] Weiss CONSULT Louis(M ed Hold [facility]) OUTPATIENT [id number] Anila ALFARO, 08/10 Release d w/o [facility] Weiss Entered LORI Limitations Charisse o(S by: LORI Christensen ent) D 10 Aug 2012 1117 ------- ------- ------- ------- -- CASE MANAGEM ENT OUTPATIENT [id number] Notes DOMINIC, 08/20 Release d w/o [facility] Weiss Zach SANDOVAL Limitations Dieg o(S by: D Case MICHELLEY Managem ,LORI ent) D 20 Aug 2012 0804 ------- ------- ------- ------- -- CASE MANAGEM ENT OUTPATIENT [id number] Bilater SERAFINE, 01/28 Rele ased w/o Naval 2 al foot Limitations [facility], [facility] hogue Naval pain Support Activit y [place] [facility] OUTPATIENT [id number] Blood SERAFINE, 02/03 Releas ed w/o Naval 3 Pressur Limitations [facility] e eval [facility] Naval Support Activit y [place] [facility] OUTPATIENT [id number] Sleep SERAFINE, 03/04 Releas ed w/o Naval 1 disturb Limitations Osvaldo ance, [facility] possibl Clinic e req Naval for Support Sleep Activit study y [place] ([facility]) Outpatient [id number] WINSTON,DOMINIQUEZ 10/04 [place] Encounter [id number] [facility] HCS History [id number] 12/12 12/12 No [id number] /2021 Facilit y Access Lifetime [id number] 12/12 Ambula t Pharmacy ory Pharmac y Procedures Combined list of: 1) Procedures from Department of Veterans Affairs facilities going back up to the last 18 months, not all VA non-surgical procedures are included; 2) All procedures from the Department of Defense facilities. Procedure Procedure Type Code Date Destiny Thornton [facility] e Case Management, 08/20/20 DOMINIC, DoD each 15 minutes 12 LORI D Coordinated care 08/20/20 DOMINIC, DoD fee, risk 12 LORI D adjusted maintenance Coordinated care 08/10/20 MENVIET, DoD fee, risk 12 LORI D adjusted maintenance Case Management, 08/10/20 MENELEY, DoD each 15 minutes 12 LORI D Coordinated care 07/16/20 MENELEY, DoD fee, risk 12 LORI D adjusted maintenance Case Management, 07/16/20 MENELEY, DoD each 15 minutes 12 LORI D Coordinated care 06/04/20 MENELEY, DoD fee, risk 12 LORI D adjusted maintenance, Level 3 Case Management, 06/04/20 MENELEY, DoD each 15 minutes 12 LORI D Audiometry Group Audiometry 15157 04/03/20 ELDON GABRIEL Audiogram [facility] DoD Testing Group Testing 12 TIFFANIE ECG Performance ECG Performance 84893 04/03/20 JUAN LOVELACE [facility] of Tracing Only of Tracing Only 12 E Visual Function Visual Function 13434 04/03/20 JUAN LOVELACE [facility] Screening Screening 12 E No data Ambulatory available for Pharma cy this section Social History Combined list of available smoking, tobacco, and other social history from Department of Defense andVeterans Affairs facilities. Social History Type Response Date Comment Source This section is an empty social history section. DoD Assessment and Plan Combined list of future care activities from Department of Defense and Veterans Affairs facilities (e.g., assessment and plan notes, appointments, orders, and referrals). Additional future care activities may be listed in the Plan of Care section. Result Assessment and Plan Date Source Assessment and Plan No data available for this 05/04/2022 A mbulatory Pharmacy section Functional Status Combined list of recent functional and cognitive assessments recorded at Department of Defense and Veterans Affairs (VA).VA Functional [place] Measurement (FIM) Scale: 1 = Total Assistance (Subject = 0% +), 2 = Maximal Assistance (Subject = 25% +), 3 = Moderate Assistance (Subject = 50% +), 4 = Mi nimal Assistance (Subject = 75% +), 5 = Supervision, 6 = Modified [place] (Device), 7 = Complete [place] (Timely, Safely). Assessment Source Assessment Type Assessment Assessment Assessmen t Date/Time Skill Score Details No data available for this section
--- OUTSIDE RECORDS SUMMARY | 2022-05-04 01:51 | XMS_ITS ---
:1970 Author Care Team Providers Name Role Phone JohnOdell Primary Care Provider Unavailable Allergies None recorded. Medications Name Status Start Date Stop Date ? ? BD Insulin Syringe 1 mL 25 x 1 Active ? Not available BD Luer-Lit Syringe 3 mL 21 gauge x 1 1/2 Active ? Not available BD Luer-Lit Syringe 3 mL 22 x 1 1/2 Active ? Not available BD Regular Bevel [place] 18 gauge x 1 Active ? Not available diclofenac sodium 75 mg tablet,delayed release Active ? Not available lisinopril 10 mg tablet Active ? Not avai lable terbinafine HCl 250 mg tablet Active ? No t available testosterone cypionate Active ? Not avail able testosterone cypionate 200 mg/mL intramuscular oil Active ? Not available Inject 0.6 cc IM weekly trazodone 50 mg tablet Active ? Not avail able Notes: taking a blood pressure med, un sure of name. Problems Name Status Onset Date Source ? Testicular Hypofunction Active 08/27/2019 History History of Malignant Neoplasm of Testis Active 08/27/20 19 History Impotence Active 10/02/2019 History Procedures Date Name Performed by ? 09/25/2001 Wrist Arthroscopy Information not federicoai munira Notes: 09/25/2001 - WRIST ARTHROSCOPY Results Lab Results Date Name Specimen Result Interpretation Description Value Range Status Address ? 05/29/2020 Estradiol, BLDV ? Estradiol, 45.6 20.0-47.0 F inal [place] Serum Sensitive pg/mL pg/mL [facility]: [address] 05/29/2020 CBC W/ Diff BLDV ? Wbc 9.80 3.80-10.80 Coby angely [place] 10*3/uL 10*3/uL [facility]: [address] [address], [place] ? ? BLDV ? Ne% 68.60 % 42.00-82.0 Final [place] 0 % [facility]: [address] [address], [place] ? ? BLDV ? Ly% 19.00 % 15.00-35.0 Final [place] 0 % [facility]: [address] [place] [address] ? ? BLDV ? Mo% 9.00 % 4.00-12.00 Final [place] % [facility]: [address] [place] [address], [place] ? ? BLDV ? Eo% 2.80 % 1.00-6.00 Final [place] % [facility]: [address] [place] [address], [place] ? ? BLDV ? Ba% 0.60 % 0.00-2.00 Final [place] % [facility]: [address] [place] [address] ? ? BLDV ? Ne# 6.70 1.50-7.80 Final [place] 10*3/uL 10*3/uL [facility]: [address] [place] [address] ? ? BLDV ? Ly# 1.90 0.85-3.90 Final [place] 10*3/uL 10*3/uL [facility]: [address] [place] [address] ? ? BLDV ? Mo# 0.90 0.20-0.95 Final [place] 10*3/uL 10*3/uL [facility]: [address] [place] [address] ? ? BLDV ? Eo# 0.30 0.02-0.50 Final [place] 10*3/uL 10*3/uL [facility]: [address] [place] [address] ? ? BLDV ? Ba# 0.10 0.00-0.20 Final [place] 10*3/uL 10*3/uL [facility]: [address] [place] [address] ? ? BLDV ? Rbc 5.55 4.20-5.80 Final [place] 10*6/uL 10*6/uL [facility]: [address] [place] [address] ? ? BLDV High Hgb 17.40 13.20-17.1 Final [place] rotary pump operator g/dL 0 g/dL [facility]: [address] [place] [address] ? ? BLDV High Hct 52.00 % 38.50-50.0 Final [place] 0 % [facility]: [address] [place] [address] ? ? BLDV ? Mcv 93.50 80.00-100. Final [place] fL 00 fL [facility]: [address] [place] [address] ? ? BLDV ? Mch 31.40 27.00-33.0 Final [place] rotary pump operator pg 0 pg [facility]: [address] [place] [address] ? ? BLDV ? Mchc 33.50 32.00-36.0 Final [place] rotary pump operator g/dL 0 g/dL [facility]: [address] [place] [address] ? ? BLDV ? Rdw 13.50 % 11.00-15.0 Final [place] 0 % [facility]: [address] [place] [address] ? ? BLDV ? Plt 255.00 140.00-400 Final [place] rotary pump operator 10*3/uL .00 [facility] - 10*3/uL [facility]: [address] [place] [address] ? ? BLDV ? Mpv 9.60 fL ? Final [place] [facility]: [address] [place] [address] 05/29/2020 Prostate BLDV ? PSA, Total 0.55 0.00-4.00 Fin al [place] Specific Ag, NG/mL NG/mL [facility] - [facility]: [address] [place] [address] 05/29/2020 Testosterone BLDV ? Testosterone 716.87 175.00- 781 Final [place] , NG/dL .00 NG/dL [facility] - Bioavailable [facility] , Serum Lab: [address] [place] [address] ? ? BLDV ? Testosterone, 20.4 9.0-30.0 Final [place] Free NG/dL NG/dL [facility]: [address] [place] [address] ? ? BLDV ? % Ftesto 2.9 % ? Final [place] [facility]: [address] [place] [address] ? ? BLDV High Testosterone, 497 40-235 Final [place] Bioavailable NG/dL NG/dL [facility]: [address] [place] [address] ? ? BLDV ? Shbg 18.6 13.3-89.5 Final [place] nmol/L nmol/L [facility]: [address] [place], [place] [address] ? ? BLDV ? Albumin-olymp 4.5 3.5-5.0 Final [place] g/dL g/dL [facility]: [address] [facility] [address], [place] Past Encounters None recorded. Social History Tobacco Smoking Status Never Smoker Vaccine List None recorded. Plan of Care Reminders Provider Appointments None recorded. ? ? Lab None recorded. ? ? Referral None recorded. ? ? Procedures None recorded. ? ? Surgeries None recorded. ? ? Imaging None recorded. ? ? Vitals Height Weight BMI 5 ft 11 in 245 lbs 34.2 kg/m2
== END 2022-04-27 12:37 | disposition home or self-care (01) ==
PROVIDERS: Emergency Provider Family Medicine; PCP Family Medicine
DX: Z20.822 Contact with and (suspected) exposure to COVID-19 (principal)
CPT/HCPCS: 87635; 99282

== ENCOUNTER 2022-05-27 13:17 | Outpatient (CLI) | payer OTHER, SELFPAY ==
--- OUTSIDE RECORDS SUMMARY | 2022-05-27 08:01 | XMS_ITS | Encounter Summary ---
:1970 Author Organization [place] Address [facility] [place] [address] Care Team Providers Name Role Phone Clinic, Keturah Betancourt Primary Care Provider [phone] Reason for Visit Reason Comments Palpitations Fatigue Diarrhea Encounter Details Date Type Department Care Team Description 03/25/2020 Emergency [facility] Jessica Tian MD Hypertension, [facility] Emergency Dep t EMERGENCY PHYSICIANS unspecified type [address] [place], [place] [address] [facility] [address] [facility] [phone] [place] [address] (Wo rk) Social History Tobacco [...] through Care Everywhere. Hypertension, New (Begin Treatment) (Kazakh)documented in this encounter Medications at Time of [...] and eating healthy. He was seen at [facility] where they did an EKG prior to [...] Sinus rhythm Normal ECG Rate 77 bpm. WV interval 138. QRS duration 92. QT/QTc 356/402. [...] history of hypertension. He is in the [place] and just recently returned from [facility]. He hashad no recent fevers, URI symptoms, [...] and the provider's statements to me. 03/25/2020 [facility] EM[facility] DEPART[facility] Sathish Tian MD 03/26/20 1320 [...] Signature TSH 1.24 0.40 - 4.00 03/25/2020 [facility] mU/L 6:24 PM CDT HOSPITAL Specimen Anatomical Collection Method Collection Time Receive d Time (Source) Location / / Volume Laterality Blood specimen 03/25/2020 5:45 PM 020 5:53 (specimen) CDT PM CDT Sathish Tian MD LAB - BLOOD ORDERABLES Performing Organization Address [facility] Phon e Number [facility] [address] [place], [place] [address] [facility] [address], [place] [address] [address] Troponin I (03/25/2020 5:45 PM CDT) athologist Signature Troponin I ES <0.015 0.000 - 03/25/2020 [place] 0.045 ug/L 6:18 PM [facility] Comment: The 99th percentile for upper reference [...] LAB - BLOOD ORDERABLES Performing Organization Address [facility] Phon e Number [facility] [address] [place], [place] [address] [facility] [address], [place] [address] [address] (ABNORMAL) Comprehensive metabolic panel (03/25/2020 5:45 PM CDT) athologist Signature Sodium 136 133 - 144 03/25/2020 [place] mmol/L 6:07 PM [facility] Potassium 3.8 3.4 - 5.3 03/25/2020 [place] mmol/L 6:07 PM [facility] Chloride 102 94 - 109 03/25/2020 [place] mmol/L 6:07 PM [facility] Carbon Dioxide 29 20 - 32 03/25/2020 [place] mmol/L 6:14 PM [facility] Anion Gap 5 3 - 14 03/25/2020 [place] mmol/L 6:14 PM [facility] Glucose 93 70 - 99 03/25/2020 [place] mg/dL 6:14 PM [facility] Urea Nitrogen 16 7 - 30 03/25/2020 [place] mg/dL 6:14 PM [facility] Creatinine 1.19 0.66 - 03/25/2020 [place] 1.25 mg/dL 6:14 PM [facility] GFR Estimate 72 >60 03/25/2020 [place] mL/min/{1. 6:14 PM [facility] 73_m2} HOSPITAL Comment: Non GFR Calc Starting 09/11/2018, serum creatinine ba sed estimated GFR (eGFR) will be calculated using the Chronic Kidney Dise [facility] Epidemiology Collaboration (CKD-EPI) equation. GFR Estimate If 83 >60 mL/min/{1.73_m2} 03/25/2020 6: 14 PM [facility] Comment: GFR Calc Starting 09/11/2018, serum creatinine ba sed estimated GFR (eGFR) will be calculated using the Chronic Kidney Dise [facility] Epidemiology Collaboration (CKD-EPI) equation. Calcium 9.0 8.5 - 10.1 03/25/2020 6:14 PM [place] R IDGES mg/dL [facility] Bilirubin Total 0.5 0.2 - 1.3 mg/dL 03/25/2020 6:16 PM [facility] Albumin 4.0 3.4 - 5.0 g/dL 03/25/2020 6:16 PM [facility] Protein Total 8.0 6.8 - 8.8 g/dL 03/25/2020 6:16 PM [facility] Alkaline Phosphatase 78 40 - 150 U/L 03/25/2020 6:16 PM [facility] ALT 91 (H) 0 - 70 U/L 03/25/2020 6:16 PM [facility] AST 49 (H) 0 - 45 U/L 03/25/2020 6:16 PM [facility] Specimen Anatomical Collection Method Collection Time Receive d Time (Source) Location / / Volume Laterality Blood specimen 03/25/2020 5:45 PM 020 5:53 (specimen) CDT [facility] Sathish Tian MD LAB - BLOOD ORDERABLES Performing Organization Address City/State/ZIP Code Phon e Number M [facility] [address], [place] [address] [facility] [address] [place], [place] [address], [facility] [phone] [place] [address] [place] [address], [facility] CBC with platelets differential (03/25/2020 5:45 PM CDT) [facility] gist Method Time Signature WBC 10.0 4.0 - 03/25/2020 [facility] 11.0 5:59 PM [facility] 10e9/L [facility] RBC Count 5.62 4.4 - 5.9 03/25/2020 [facility] 10e12/L 5:59 PM [facility] Hemoglobin 17.5 13.3 - 03/25/2020 [facility] 17.7 g/dL 5:59 PM [facility] Hematocrit 52.4 40.0 - 03/25/2020 [facility] 53.0 % 5:59 PM [facility] MCV 93 78 - 100 03/25/2020 [facility] fl 5:59 PM [facility] MCH 31.1 26.5 - 03/25/2020 [facility] 33.0 pg 5:59 PM [facility] MCHC 33.4 31.5 - 03/25/2020 [facility] 36.5 g/dL 5:59 PM [facility] RDW 12.8 10.0 - 03/25/2020 [facility] 15.0 % 5:59 PM [facility] Platelet Count 283 150 - 450 03/25/2020 [facility] 10e9/L 5:59 PM [facility] Diff Method Automated 03/25/2020 [facility] Method 5:59 PM [facility] % Neutrophils 58.6 % 03/25/2020 [facility] 5:59 PM [facility] % Lymphocytes 27.3 % 03/25/2020 [facility] 5:59 PM [facility] % Monocytes 8.1 % 03/25/2020 [facility] 5:59 PM [facility] % Eosinophils 4.4 % 03/25/2020 [facility] 5:59 PM [facility] % Basophils 0.9 % 03/25/2020 [facility] 5:59 PM CDT [facility] % Immature 0.7 % 03/25/2020 [place] Granulocytes 5:59 PM [facility] Nucleated RBCs 0 0 /100 03/25/2020 [place] 5:59 PM [facility] Absolute 5.9 1.6 - 8.3 03/25/2020 [place] Neutrophil 10e9/L 5:59 PM [facility] Absolute 2.7 0.8 - 5.3 03/25/2020 [place] Lymphocytes 10e9/L 5:59 PM [facility] Absolute 0.8 0.0 - 1.3 03/25/2020 [place] Monocytes 10e9/L 5:59 PM [facility] Absolute 0.4 0.0 - 0.7 03/25/2020 [place] Eosinophils 10e9/L 5:59 PM [facility] Absolute 0.1 0.0 - 0.2 03/25/2020 [place] Basophils 10e9/L 5:59 PM [facility] Abs Immature 0.1 0 - 0.4 03/25/2020 [place] Granulocytes 10e9/L 5:59 PM [facility] Absolute 0.0 03/25/2020 [place] Nucleated RBC 5:59 PM [facility] Specimen Anatomical Collection Method Collection Time Receive d Time (Source) Location / / Volume Laterality Blood specimen 03/25/2020 5:45 PM 020 5:53 (specimen) CDT PM CDT Sathish Tian MD LAB - BLOOD ORDERABLES Performing Organization Address City/State/ZIP Code Phon e Number [facility] [address] [address] [facility] [address] [phone] EKG 12-lead, tracing only (03/25/2020 5:36 PM CDT) [facility] gist Method Time Signature Interpretation ECG Click View RADIOLOGY Image link RESULTS to view waveform and result Specimen (Source) Anatomical Collection Method Collection Time Re ceived Time Location / / Volume Laterality 03/25/2020 5:36 PM CDT Sathish Tian MD ECG ORDERABLES Performing Organization Address City/[facility]/ZIP [facility] Phon e Number RADIOLOGY RESULTS documented in this encounter Visit Diagnoses Diagnosis Hypertension, unspecified type documented in this encounter Care Teams Manager Of Training Relationship Specialty Start Date End Date Clinic, Keturah Betancourt PCP - General 03/25/20 [address] [place] [address] documented as of this encounter
--- OUTSIDE RECORDS SUMMARY | 2022-05-27 08:01 | XMS_ITS | Encounter Summary ---
:1970 Author Organization [place] Address [address] [place] [address]. [place] [address] Care Team Providers Name Role Phone Unavailable [...]
--- OUTSIDE RECORDS SUMMARY | 2022-05-27 08:01 | XMS_ITS | Encounter Summary ---
:1970 Author Organization [place] Address [facility] [place] [address] Care Team Providers Name Role Phone [facility] [phone] Encounter Details Date Type Department Care [...] on filedocumented in this encounter Care Teams Family Manager Relationship Specialty Start Date End Date [facility], Keturah Betancourt PCP - General 03/25/20 [address] [place] [address] documented as of this encounter
--- OUTSIDE RECORDS SUMMARY | 2022-05-27 08:01 | XMS_ITS | Encounter Summary ---
:1970 Author Organization [place] Address [facility] [place] [address] Care Team Providers Name Role Phone Unavailable Primary Care Provider Unavailable Reason for Visit Reason Onset Date Comments Walk In Clinic 10/28/2011 back pain Encounter Details Date Type Department Care Team Description 10/28/2011 Telephone [facility] None [facility] [place] [address] [facility] [address] [place] [address] Social History Tobacco Use [...] Gordon RN Message Handled by Nurse Triage ET ASSEMBLER documented in this encounter Plan of Treatment Not on filedocumented as of this encounter Visit Diagnoses Not on filedocumented in this encounter
--- OUTSIDE RECORDS SUMMARY | 2022-05-27 08:01 | XMS_ITS | Encounter Summary ---
:1970 Author Organization [place] Address [facility] [facility] [address] Care Team Providers Name Role Phone Unavailable Primary Care Provider Unavailable Reason for Visit Reason Comments Pharyngitis Encounter Details Date Type Department Care Team Description 11/03/2018 Emergency [facility] Solomon Barnes MD Pharyngitis, [facility] Emergency Dep t [facility] unspecified etiology [address] [place], [place] [address] [facility] [id number] [place] [address] [phone] (Wo rk) Social History Tobacco Use Types [...] on file documented as of this encounter Last Filed Vital Signs Vital Sign Reading Time Taken Comments Blood Pressure 138/92 11/03/2018 5:26 AM [employer] SALES ENGINEER Pulse 87 11/03/2018 5:26 AM [employer] SAL[employer] ENGINEER Temperature 36.9 ??C (98.5 ??F) 11/03/2018 4:33 AM [employer] SALES ENGINEER Respiratory Rate 20 11/03/2018 5:26 AM [employer] SAL[employer] ENGINEER Oxygen Saturation 99% 11/03/2018 5:26 AM [employer] SALES ENGINEER Inhaled Oxygen Concentration - - Weight 111.1 kg (245 lb) 11/03/2018 4:33 AM [employer] SALES ENGINEER Height 180.3 cm (5' 11) 11/03/2018 4:33 AM [employer] SAL[employer] ENGINEER Body Mass Index 34.17 11/03/2018 4:33 AM [employer] SALES ENGINEER documented in this encounter Discharge Instructions AttachmentsThe following attachments cannot be sent through Care Everywhere. PHARYNGITIS, REPORT PENDING (TAJIK)documented in this encounter Medications at Time of Discharge Medication Sig Dispensed Refills Start Date End Date dexamethasone (DECADRON) 4 Take 8 mg by mouth 2 tablet 0 0 11/03/2018 MG tablet once for 1 dose Take on Monday (11/05) is still symptomatic. documented as of this encounter ED Notes Delilah Hunter RN - 11/03/2018 4:31 AM CST Pt c/o pain in throat for 2 days, states he has been ill for a week. Seen at clinic Monday, dx with viral sinus infection. Pt reports pain mostly on left side of throat, states it is difficult to swallow. C/o chills, no fever, c/o fatigue. C/o sinus congestion. [employer] SAL[employer] ENGINEER Solomon Barnes MD - 11/03/2018 4:26 AM CST History Chief Complaint: Pharyngitis The history is provided by the patient. Tiago See is a 48 year old male with a history of testicular cancer who presents to the emergencydepartment for evaluation of pharyngitis. Of note, the patient was recently seen at his primary caredoctor on 10/29 after 3 days of sinus pain and pressure. He was ultimately diagnosed with a sinusitis and discharged home on a 5 day course of prednisone. The patient endorses that he did not take these.The patient states that his symptoms have persisted, but for the past 24 hours, the patient endorsesthe inability to swallow secondary to left sided sore throat. He states that he has tried ibuprofen,lidocaine rinse and hot tea to ease the pain, to no avail, prompting him to seek further evaluation here in the ED. Here, the patient complains of the left sided throat pain with the inability to swallow along with the accompanying sinus pressure and congestion. He denies any co-occurrence of fevers. Allergies: NKDA Medications: The patient is not currently taking any prescribed medications. Past Medical History: Testicular Cancer Past Surgical History: Orchiectomy Wrist Surgery Collar Bone Surgery Family History: No past pertinent family history. Social History: Tobacco Use: No Alcohol Use: Yes, socially Review of Systems Constitutional: Negative for fever. HENT: Positive for congestion, sinus pressure, sinus pain, sore throat and trouble swallowing. All other systems reviewed and are negative. Physical Exam Patient Vitals for the past 24 hrs: BP Temp Temp src Pulse Resp SpO2 Height Weight 11/03/18 0526 (!) 138/92 -- -- 87 20 99 % -- -- 11/03/18 0433 (!) 147/101 98.5 ??F (36.9 ??C) Oral 89 18 99 % 1.803 m (5' 11) 111.1 kg (245 lb) Physical Exam Nursing note and vitals reviewed. Constitutional: Cooperative. HENT: Mouth/Throat: Mucous membranes are normal. Edema to the tissue of the left tonsillar pillar with erythema. No uvular deviation or midline shift. Cardiovascular: Normal rate, regular rhythm and normal heart sounds. No murmur. Pulmonary/Chest: Effort normal and breath sounds normal. No respiratory distress. No wheezes. No rales. Neurological: Alert. Skin: Skin is warm and dry. Psychiatric: Normal mood and affect. Emergency Department Course Laboratory: Rapid Strep: Negative Interventions: 0452 Decadron 10 mg, PO Emergency Department Course: 0 Nursing notes and vitals reviewed. I performed an exam of the patient as documented above. Medicine administered as documented above. 0520 I rechecked the patient and discussed the results of his workup thus far. Findings and plan explained to the patient. Patient discharged home with instructions regarding supportive care, medications, and reasons to return. The importance of close follow-up was reviewed. I personally reviewed the laboratory results with the patient and answered all related questions prior to discharge. Impression & Plan Medical Decision Making: Tiago See is a 48 year old male who presents with progressive sore throat as described in the HPI. This is left sided. On exam, there is edema to this side of the throat but no findings concerning for a space occupying lesion such as peritonsillar abscess. The uvula is midline and not affected. This seems like simple edema of the soft tissue. No findings concerning for epiglottitis. Plan of care will be steroids. Strep is negative so I will hold on antibiotics. If his symptoms are progressing he needs to be rechecked and I did have a long discussion with him of the signs and symptoms that would be concerning for development of abscess that would need further assessing with imaging. He is comfortable with this and will be discharged home. Diagnosis: ICD-10-CM 1. Pharyngitis, unspecified etiology J02.9 Disposition: discharged to home Discharge Medications: Medication List Started dexamethasone 4 MG tablet Commonly known as: DECADRON 8 mg, Oral, ONCE, Take on Monday (11/05) is still symptomatic Scribe Disclosure: I, Arnaud Gold, am serving as a scribe on 11/03/2018 at 4:34 AM to personally document services performed by Solomon Barnes MD based on my observations and the provider's statements to me. Arnaud Gold 11/03/2018 [facility] EMERGENCY [facility]PARTMENT Solomon Barnes MD 11/03/18 0618 [employer] documented in this encounter Miscellaneous Notes Result Encounter Note - Cornelio Jansen RN - 11/03/2018 5:27 AM CST Final Beta strep group A r/o culture is NEGATIVE for Group A streptococcus. No treatment or change in treatment per [place] Strep protocol. [employer]INEER documented in this encounter Plan of Treatment Not on filedocumented as of this encounter Procedures Procedure Name Priority Date/Time Associated Diagnosis Comme nts RAPID STREP SCREEN STAT 11/03/2018 4:52 AM Res ults for this THROAT SWAB [employer]ER procedure are i n the results section. BETA HEMOLYTIC Routine 11/03/2018 4:52 AM Pharyngitis, Results for this STREP GROUP A [employer] ENGINEER unspecified etiology proced ure are in CULTURE the results section. documented in this encounter Results Beta strep group A culture (11/03/2018 4:52 AM [employer] ENGINEER) Component Value Ref Test Analysis Performed At [facility] Range Method Time Signature Specimen Throat INFECTIOUS Description DISEASE DIAGNOSTIC LABORATORY Special Specimen 11/03/2018 [facility] collected in 11:49 AM [facility] eSwab transport [employer] SAL[employer] ENGINEER [facility] BANK Culture Micro No Beta 11/05/2018 INFECTIOUS Streptococcus 6:16 AM [employer] SAL[employer] ENGINEER DISEASE isolated DIAGNOSTIC LABORATORY Specimen Anatomical Collection Method Collection Time Receive d Time (Source) Location / / Volume Laterality Specimen from 11/03/2018 4:52 AM 11/03/19 19 5:07 throat [employer]INEER AM [employer] SAL[employer] ENGINEER (specimen) Solomon Barnes MD LAB - MICRO GENERAL ORDERABL ES Performing Organization Address City/State/ZIP Code Phon e Number INFECTIOUS DISEASES [address] [place] [address] DIAGNOSTIC LABORATORY, [facility] INFECTIOUS DISEASE [address] [place] [address], [facility] DIAGNOSTIC LABORATORY [address] [address], [facility] Rapid strep screen (11/03/2018 4:52 AM [employer] ENGINEER) Component Value Ref Test Analysis Performed At [facility] Range Method Time Signature Specimen Throat [facility] Rapid Strep A NEGATIVE: No 11/03/2018 [place] Screen Group A 5:06 AM [employer] SAL[employer] ENGINEER [facility] antigen detected by immunoassay, await culture report. Specimen Anatomical Collection Method Collection Time Receive d Time (Source) Location / / Volume Laterality Specimen from 11/03/2018 4:52 AM 11/03/19 19 4:56 throat [employer] ENGINEER AM [employer] SAL[employer] ENGINEER (specimen) Solomon Barnes MD LAB - MICRO GENERAL ORDERABL ES Performing Organization Address City/[facility]/ZIP [facility] Phon e Number [place] [address] [address] [place] [address] [phone] documented in this encounter Visit Diagnoses Diagnosis Pharyngitis, unspecified etiology documented in this encounter Administered Medications Inactive Administered Medications - up to 3 most recent administrations Medication Order MAR Action Action Date Dose Rate Site dexamethasone (DECADRON) tablet 10 Given 11/03/2018 4:52 AM [employer]ER 10 mg mg 10 mg, Oral, ONCE, On 11/03/18 at 0446, For 1 dose documented in this encounter Active and Recently Administered Medications Times are shown in [employer]. Scheduled Medication Order 11/01/2018 11/02/2018 11/03/2018 dexamethasone (DECADRON) tablet 10 mg (COMPLETED) 0452 (Given - Provider: Susannah Lobo RN) 10 mg, Oral, ONCE, 11/03/18 at 0446, For 1 dose documented in this encounter
--- OUTSIDE RECORDS SUMMARY | 2022-05-27 08:01 | XMS_ITS | Clinical Summary ---
:1970 Author Organization [place] Address [address] [facility] [place] [address] Care Team Providers Name Role Phone Clinic, [facility] Primary Care Provider [phone] Medications Medication Sig Dispensed Refills Start [...] 111.1 kg (245 lb) 11/03/2018 4:33 AM CAR SALES REPRESENTATIVE Height 180.3 cm (5' 11) 11/03/2018 4:33 AM CAR SALES REPRESENTATIVE Body Mass Index 34.17 11/03/2018 4:33 AM CAR SALES REPRESENTATIVE Plan of Treatment Health Maintenance Due Date [...] Phone Address Type / Group /[employer] [id number] 2017-[place] [phone] [address] [employer] [address] [place] [address] /[employer] [id number] 2018-Presen [phone] [address] [employer] [place] [address] Care Teams Toe Former Relationship Specialty Start Date End Date Clinic, [facility]ancourt PCP - General 03/25/20 [id number] [place] [id number]
--- OUTSIDE RECORDS SUMMARY | 2022-05-27 08:02 | XMS_ITS | Continuity of Care Document ---
:1970 Author Organization [facility] Care Team Providers Name Role Phone [facility] Unavailable Unavailable Problems Combined list of problems from Department of Defense and Veterans Affairs facilities. It does not include entries that were removed or entered in error. Problem Status Onset Date Problem Type Date of Comments Source Resolution Aftercare Following Inactive Condition [facility] Surgery Of Genitourinary System conditions Active Condition DoD influencing health status visit for: Active Condition DoD services physical testicular cancer Active Condition Do D Testes Mass (___cm) Active Condition DoD visit for: ears / Active Condition Do D hearing exam visit for: Active Condition [facility] occupational health / fitness exam visit for: Inactive Condition [facility] administrative purpose Medications Combined list of outpatient medications from Department of Defense and Veterans Affairs facilities. Medications provided include 1) outpatient medications from the last 15 months, and 2) patient-reported medications. Medication Details Route Status Patient Prescription Prescription Last Ordering Order Source Instructions Expires Number Dispense Provider Date Date ACETAMINOPH TAKE 1 Oral Active 06/05/2022 [id number] SEELIN CAITIE [place] EN (U/D) TO 2 2 2021 [place] 325 MG ORAL TABLETS LUCRECIA S a TAB BY MOUTH EVERY SIX HOURS NEEDED FOR PAIN/FEV ER DICLOFENAC Active [id number] FELLAND, 07/29 / Pharmac SODIUM 2020 y Data (DICLOFENAC Transac SODIUM), 50 tion MG, TABLET Service DR ORAL, Facilit PACK y PHARMACEUT, 100 ea. BOTTLE DICLOFENAC Active [id number] FELLAND, 08/27 / Pharmac SODIUM 1 2020 y Data (DICLOFENAC Transac SODIUM), 50 tion MG, TABLET Service DR ORAL, Facilit PACK y PHARMACEUT, 100 ea. BOTTLE diclofenac diclofenac sodium 50 mg oral delayed release tablet Order ed Ambulat sodium 50 Start Date: 07/29/21 ory mg oral Status: Ordered Ph armac delayed y release tablet IBUPROFEN TAKE ONE Oral Active 06/05/2022 [id number] SEELIN CAITIE 05/06/ [place] (U/D) 600 TABLET 2 , 2021 [place] MG ORAL TAB BY MOUTH LUCRECIA S a EVERY 6-8 HOURS WITH FOOD NEEDED FOR PAIN LISINOPRIL Active [id number] FELLAND, 04/17 Pharmac (lisinopril 2 2021 y Data ), 10 MG, Transac TABLET, tion ORAL, LUPIN Service PHARMACEU, Facilit 1000 ea. y BOTTLE LISINOPRIL Active [id number] FELLAND, 05/13 Pharmac (lisinopril 1 2020 Data ), 10 MG, Transac TABLET, tion ORAL, LUPIN Service PHARMACEU, Facilit 1000 ea. y BOTTLE LISINOPRIL Active [id number] FELLAND, 07/28 Pharmac (lisinopril 1 2020 Data ), 10 MG, Transac TABLET, tion ORAL, LUPIN Service PHARMACEU, Facilit 1000 ea. y BOTTLE LISINOPRIL Active [id number] FELLAND, 01/05 Pharmac (lisinopril 2 2021 Data ), 10 MG, Transac TABLET, tion ORAL, LUPIN Service PHARMACEU, Facilit 1000 ea. y BOTTLE lisinopril lisinopril 10 mg oral tablet Ordered Ambulat 10 mg oral Start Date: 05/13/21 ory tablet Status: Ordered Pha rmac y LUER-SHANE Active [id number] [facility], 02/20/ P harmac SYRINGE-NEE 2021 Data DLE Transac (syringe tion with Service needle,disp Facilit osable, 3 y mL), 25GX1, DISP SYRIN, MISCELL, BD MEDICAL SURG, 100 ea. BOX LUER-SHANE Active [id number] [facility], 04/20/ P harmac SYRINGE-NEE 2 2021 y Data DLE Transac (syringe tion with Service needle,disp Facilit osable, 3 y mL), 25GX1, DISP SYRIN, MISCELL, BD MEDICAL SURG, 100 ea. BOX TESTOSTERON TESTOSTERONE CYPIONATE (test osterone cypionate), 200 MG/ML, VIAL, INTRAMUSC, PERRIGO/PADAGIS, 1 ml Ordered Ambulat E CYPIONATE Start Date: 09/26/21 ory (testostero Status: Ordered Pharmac ne y cypionate), 200 MG/ML, VIAL, INTRAMUSC, PERRIGO/PAD AGIS, 1 ml TESTOSTERON Active [id number] [facility], 02/23/ Pharmac E CYPIONATE 2 2021 y Data (testostero Transac ne tion cypionate), Service 200 MG/ML, Facilit VIAL, y INTRAMUSC, PERRIGO/PAD AGIS, 1 ml VIAL TESTOSTERON Active [id number] [facility], 03/26 Pharmac E CYPIONATE 2 2021 y Data (testostero Transac ne tion cypionate), Service 200 MG/ML, Facilit VIAL, y INTRAMUSC, PERRIGO/PAD AGIS, 1 ml VIAL TESTOSTERON Active [id number] [facility]LLAND, 08/27 Pharmac E CYPIONATE 1 2020 y Data (testostero Transac ne tion cypionate), Service 200 MG/ML, Facilit VIAL, y INTRAMUSC, PERRIGO/PAD AGIS, 1 ml VIAL TESTOSTERON Active [id number] [facility], 08/27 Pharmac E CYPIONATE 1 2020 y Data (testostero Transac ne tion cypionate), Service 200 MG/ML, Facilit VIAL, y INTRAMUSC, PERRIGO/PAD AGIS, 1 ml VIAL TESTOSTERON Active [id number] [facility], / Pharmac E CYPIONATE 2 2021 y Data (testostero Transac ne tion cypionate), Service 200 MG/ML, Facilit VIAL, y INTRAMUSC, PERRIGO/PAD AGIS, 1 ml VIAL TESTOSTERON Active [id number] [facility], 11/24/ Pharmac E CYPIONATE 2 2021 [...] SUN PHARMACEUTI , 1 ml TESTOSTERON Active [id number] [facility], 08/14 / Pharmac E CYPIONATE 1 2020 y Data (TESTOSTERO Transac NE tion [...] type Reported No Known Drug Drug active VA Allergies allergy allergy 2 [place] Immunizations Combined list of available immunizations from the Department of Defense and Veterans Affairs facilities. Immunization Series Date Administered Site Reaction Lot CVX Drug St atus Comments Source Given By Number Code Scrummaster influenza, 158 CellScape comple t influenza, injectable, quadrivalent Ambulat injectable, 2021 ne ed 12/11/21 ory quadrivalent Given P harmac y influenza, 0 158 SmithKline complet i nfluenza DoD injectable, 2021 (SKB) ed , quadrivalent, inject abl contains e, preservative quadriv al ent, contains preservat elizabeth COVID Vaccine PFIZER complet C OVID Vaccine ? Pfizer Ambulat ? Pfizer 2020 ed 07/13/21 or y Given Pharmac y SARS-COV-2 2 Pfizer, Inc complet SARS-COV- DoD (COVID-19) 2020 (PFR) ed 2 vaccine, (COVID-19 mRNA, spike ) protein, LNP, vaccin e, preservative mRNA, free, 30 spike mcg/0.3mL protein, dose LNP, preservat elizabeth free, 30 mcg/0.3mL dose COVID Vaccine PFIZER complet C OVID Vaccine ? Pfizer Ambulat ? Pfizer 2020 ed 06/22/21 ory Given Pharmac y SARS-COV-2 1 Pfizer, Inc complet SARS-COV- DoD (COVID-19) 2020 (PFR) ed 2 vaccine, (COVID-19 mRNA, spike ) protein, LNP, vaccin e, preservative mRNA, free, 30 spike mcg/0.3mL protein, dose LNP, preservat elizabeth free, 30 mcg/0.3mL dose influenza, 150 Seqirus complet infl uenza, injectable, quadrivalent-pf Ambulat injectable, 2019 ed 07/02/20 ory quadrivalent- Given Pharmac pf y Influenza, 0 150 Seqirus (SEQ) comple t Influenza DoD injectable, 2019 ed , quadrivalent, inject abl preservative e, free quadrival ent, preservat elizabeth free tetanus, 115 sanofi complet tetanus , diphtheria, acellular pertussis Ambulat diphtheria, 2019 pasteur ed 0 ory acellular Given Phar mac pertu is y tetanus 2 UNK 115 Sanofi complet tetanus DoD toxoid, 2019 Pasteur (PMC) ed toxo id, reduced reduced diphtheria diphtheri toxoid, and a toxoid , acellular and pertu is acellular vaccine, pertussis adsorbed vaccine, adsorbed influenza, 150 Seqirus complet infl uenza, injectable, quadrivalent-pf Ambulat injectable, 2018 ed 08/14/19 ory quadrivalent- Given Pharmac pf y Influenza, 0 150 Seqirus (SEQ) comple t Influenza DoD injectable, 2018 ed , quadrivalent, inject abl preservative e, free quadrival ent, preservat elizabeth free influenza, 454G3 150 GlaxoSmithKli comple t influenza, injectable, quadrivalent-pf Ambulat injectable, 2017 ne ed 08/11/18 ory quadrivalent- Given Pharmac pf y Influenza, 0 454G3 150 SmithKline complet I nfluenza DoD injectable, 2017 (SKB) ed , quadrivalent, inject abl preservative e, free quadrival ent, preservat elizabeth free influenza K 88 Seqirus complet influ rosio virus vaccine, inactivated Ambulat virus 2016 ed 07/09/17 ory vaccine, Given Pharm ac inactivated y Influenza, 0 K 186 Seqirus (SEQ) comple t Influenza DoD injectable, 2016 ed , Amaya Hanson injectab l Canine e, Madnavjot Kidney, [place] quadrivalent Canine with Kidney, preservative quadriv al ent with preservat elizabeth influenza, NT2G 158 GlaxoSmithKli comple t influenza, injectable, quadrivalent Ambulat injectable, 2015 ne ed 08/11/16 ory quadrivalent Given P harmac y influenza, 0 7NT2G 158 SmithKline complet i nfluenza DoD injectable, 2015 (SKB) ed , quadrivalent, inject abl contains e, preservative quadriv al ent, contains preservat elizabeth influenza, 140 complet influe nza, seasonal, injectable-pf Ambulat seasonal, 2014 ed 09/24/15 o ry injectable-pf Given Pharmac y Influenza, 0 140 (TRN) complet Influe nza DoD seasonal, 2014 ed , injectable, seasonal , preservative injecta bl free e, preservat elizabeth free influenza, 149 Medimmune Inc compl et influenza, live, intranasal,quadrivalent Ambulat live, 2013 ed 06/14/14 ory intranasal,qu Given Pharmac adrivalent y influenza, 0 149 MedImmune, complet influenza DoD live, 2013 Inc. (MED) ed , live, intranasal, intranas a quadrivalent l, quadrival ent influenza, 144 sanofi complet infl uenza, seasonal, intradermal-pf Ambulat seasonal, 2012 pasteur ed 06/08/13 ory intradermal-p Given Pharmac f y seasonal 0 144 Sanofi complet season al DoD influenza, 2012 Pasteur (PMC) ed i nfluenza intradermal, , preservative intrade rm free al, preservat elizabeth free influenza, [id number] 140 CSL Behring comple t influenza, seasonal, injectable-pf Ambulat seasonal, 2011 1A ed 08/11/12 o ry injectable-pf Given Pharmac y Influenza, 0 7740615 140 CSL complet Infl uenza DoD seasonal, 2011 1A Biotherapies, ed , injectable, Inc. (CSL) sea felicita, preservative injecta bl free e, preservat elizabeth free influenza 111 Medimmune Inc complet influenza virus vaccine, live Ambulat virus 2010 ed 06/12/11 ory vaccine, live Given Pharmac y influenza 0 111 MedImmune, complet in fluenza DoD virus 2010 Inc. (MED) ed virus vaccine, vaccine, live, live, attenuated, attenuat e for d, for intranasal intranasa use l use influenza [id number] 111 [facility] Inc compl et influenza virus vaccine, live Ambulat virus 2009 ed 08/13/10 ory vaccine, live Given Pharmac y hepatitis [id number] 104 GlaxoSmithKli compl et hepatitis A-hepatitis B vaccine Ambulat A-hepatitis B 2009 6BB ne ed ory vaccine Given Pharma c y hepatitis A 3 [id number] 104 SmithKline comple t hepatitis DoD and hepatitis 2009 6BB (SKB) ed A and B vaccine hepatitis B vaccine influenza 0 [id number] 111 [facility] influenza DoD virus 2009 Inc. (MED) ed virus vaccine, vaccine, live, live, attenuated, attenuat e for d, for intranasal intranasa use l use hepatitis [id number] 104 GlaxoSmithKli compl et hepatitis A-hepatitis B vaccine Ambulat A-hepatitis B 2009 4AA ne ed 0 ory vaccine Given Pharma c y hepatitis A 2 [id number] 104 SmithKline comple t hepatitis DoD and hepatitis 2009 4AA (SKB) ed A and B vaccine hepatitis B vaccine tetanus, [id number] 115 GlaxoSmithKli comple t tetanus, diphtheria, acellular pertussis Ambulat diphtheria, 2009 6BA ne ed 01/16/10 ory acellular Given Phar mac pertu is y hepatitis [id number] 104 GlaxoSmithKli compl et hepatitis A-hepatitis B vaccine Ambulat A-hepatitis B 2009 4AA ne ed 0 ory vaccine Given Pharma c y poliovirus B0476 10 Tetra Discovery Inc comple t poliovirus vaccine, inactivated Ambulat vaccine, 2009 ed 01/16/10 ory inactivated Given Ph armac y measles/mumps 04510 03 Merck & complet measles/mumps/rubella virus vaccine Ambulat /rubella 2010 Company Inc ed ory virus vaccine Given Pharmac y measles, 0 04510 03 Merck (MSD) complet measles, DoD mumps and 2010 ed mumps and rubella virus rubell a vaccine virus vaccine poliovirus 0 01/16/ B0476 10 MedImmune, complet p olioviru DoD vaccine, 2009 Inc. (MED) ed s inactivated vaccine, inactivat ed hepatitis A 1 01/16/ AHABB17 104 SmithKline comple t hepatitis DoD and hepatitis 2009 4AA (SKB) ed A and B vaccine hepatitis B vaccine tetanus 0 01/16/ [id number] 115 SmithKline complet te tanus DoD toxoid, 2009 6BA (SKB) ed toxoid, reduced reduced diphtheria diphtheri toxoid, and a toxoid , acellular and pertu is acellular vaccine, pertussis adsorbed vaccine, adsorbed measles/mumps UNK 03 Merck & complet m easles/mumps/rubella virus vaccine Ambulat /rubella 1996 Company Inc ed 07/23 ory virus vaccine Given Pharmac y measles, 1 UNK 03 Merck (MSD) complet me asles, DoD mumps and 1995 ed mumps and rubella virus rubell a vaccine virus vaccine Results Combined list of recent chemistry, hematology and other laboratory results from Department of Defense and Veterans Affairs, ranging from 15 months to all on record, depending upon the facility. Order Results Value Reference Date Interpretation Specimen Commen ts Source Name Range COVID- SARS-RELATE DETECTED 10/04 HH Specimen Ty pe: NASOPHARYNGEAL [place] 19 AND D Comment: Cephei d GeneXpert (618) IS [facility] FLU/RS CORONAVIRUS Ordering Pr ovider: JENNYFER MONTERO RNA Report Released Date/Time: Oct 04, 2021 11:22 AM PANEL( [PRESENCE] Reporting La b: [facility] CEPHEI IN [address] [facility] [id number] D) RESPIRATORY Performing Lab: [facility] SPECIMEN BY ONE [facility] [phone] [place] WITH PROBE DETECTION COVID- INFLUENZA Not 10/04 Specimen Type: NASOPHARYNGEAL [place] 19 AND VIRUS A RNA Detected /2021 Comment: C epheid GeneXpert (618) IS [facility] FLU/RS [PRESENCE] Ordering Pro vider: JENNYFER MONTERO IN UPPER Report Release d Date/Time: Oct 04, 2021 11:22 AM PANEL( RESPIRATORY Reporting L ab: [facility] CEPHEI SPECIMEN BY ONE [facility] [id number] D) [place] WITH Performing Lab : [facility] PROBE [address] [place] [address] DETECTION COVID- INFLUENZA Not 10/04 Specimen Type: NASOPHARYNGEAL [place] 19 AND VIRUS B RNA Detected /2021 Comment: C epheid GeneXpert (618) IS [place] imedo FLU/RS [PRESENCE] Ordering Pro vider: JENNYFER MONTERO IN UPPER Report Release d Date/Time: Oct 04, 2021 11:22 AM PANEL( RESPIRATORY Reporting L ab: [facility] CEP[facility] SPECIMEN BY ONE [facility] [phone] D) [place] WITH Performing Lab : [facility] PROBE [address] [place] [address] DETECTION COVID- RESPIRATORY Not 10/04 Specimen Typ e: NASOPHARYNGEAL [place] 19 AND SYNCYTIAL Detected /2021 Comment: Cep heid GeneXpert (618) IS [place] imedo FLU/RS VIRUS RNA Ordering Prov ider: JENNYFER MONTERO [PRESENCE] Report Relea sed Date/Time: Oct 04, 2021 11:22 AM PANEL( IN UPPER Reporting Lab: [facility] CEPHEI RESPIRATORY [facility] [address] D) SPECIMEN BY Performing Lab: [facility] [place] WITH [address] [facility] [address] PROBE DETECTION Vital Signs Combined list of inpatient and outpatient Vital Signs from Department of Defense and Veterans Affairs, ranging from 12 months to all on record, depending upon the facility. Vital Sign Value Date Comments Source No data available for this section Ambulatory Pharmacy Encounters Combined list of: 1) Encounters from Department of Veterans Affairs facilities going back up to the last 18 months, not all VA inpatient encounters are included; 2) Encounters from the Department of Defense facilities going back up to 280 months. Location Location Encounter Encounter Reason Attending ADM DC Stat us Disposition Source Details Type Number For Provider Date Date Visit OUTPATIENT [id number] Sebastián LOVELACE, 04/03 Releas ed w/o NH t JUAN Limitations Dougie a(Occup [facility] [place]) OUTPATIENT [id number] Yaa COLÓN, 04/03 Released w/o NH am Limitations Dougie MORENO a([facility] [place] OUTPATIENT [id number] sebastián HUFFMAN, 04/09 Rele ased w/o NH t Limitations Dougie pak([facility] [id number] [place]) OUTPATIENT [id number] Notes BRANDON 04/18 Admit lou[place] Entered , [place] by: pasha([facility] ) 18 Apr 2012 0934 ------- ------- ------- ------- -- Testicu lar [place] TELE [id number] Notes ARMIDA, 04/19 NH CONSULT Entered Dougie by: pasha(Kadi PARHAM Olegario , [place]) Mar 2012 0842 ------- ------- ------- ------- -- F/u on OUTPATIENT [id number] Notes BRANDON 08/02 Relea sed w/o NH Entered , Limitations Geronimo wise by: pasha([facility] ) 26 Apr 2012 1150 ------- ------- ------- ------- -- post op and lab work follow up OUTPATIENT [id number] Notes BRANDON 05/02 Relea sed w/o NH Entered , Limitations Geronimo wise by: pasha([facility] ) 02 May 2012 1359 ------- ------- ------- ------- -- follow up OUTPATIENT [id number] PATIENT TAMMY OLSON 06/04 Rel eased w/o [facility] Weiss INTAKE Limitations Louis([facility]) OUTPATIENT [id number] Anila ALFARO 06/04 Release d w/o [facility] Weiss Entered LORI Limitations Charisse stallworth(S by: Trang Cooley LORI) D 04 Jun 2012 1356 ------- ------- ------- ------- -- CASE MANAGEM ENT OUTPATIENT [id number] Notes BRANDON 06/05 Relea sed w/o [facility] ANGELES Serrano Limitations Di ego(S by: JANELLE FAULKNER Urology LARRY 11 ) May 2012 0854 ------- ------- ------- ------- -- W/I pre-op DIRECT TO [facility]-[id number] SEN, 06/07 06/12 RETURN ED TO [facility] 7 ABBY S /2011 DUTY Louis MTF FROM OTHER THAN ER OR APU TELE [id number] Notes ESTEFANY, 06/12 Referred fo r [facility] CONSULT Entered PAPI Emmie Myers(S by: Trang BERGER Urology YVETO ) PRISCILLA Ayala 12 Jun 2012 1623 ------- ------- ------- ------- -- Postop call back OUTPATIENT [id number] post op BRANDON 06/18 Rel eased w/o [facility] Abhishek follow- ANGELES Limitations Di ego(S up/Lap D [facility]otic ) Surgery OUTPATIENT [id number] Notes BRANDON 07/05 Anna sed w/o [facility] ANGELES Rosen Limitations Di ego(S by: JANELLE FAULKNER Urology LARRY 11 ) Jun 2012 1041 ------- ------- ------- ------- -- F/u w/i OUTPATIENT [id number] Anila ALFARO, 07/13 Release d w/o [facility] Entered LORI Limitations Charisse o(S by: Trang ALFARO Managem ,LORI ent) D 13 Jul 2012 1354 ------- ------- ------- ------- -- CASE MANAGEM ENT TELE [id number] Anila BARKSDALE, 08/03 [facility] Sa n CONSULT Entered NIMA Louis (S by: Trang BARKSDALE [facility]rology LORRAINE ) EMMA Foy 02 Aug 20121956 ------- ------- ------- ------- -- Fit for duty TELE [id number] TAMMY OLSON 08/03 [facility] Weiss CONSULT Louis(M ed [facility]) OUTPATIENT [id number] Anila ALFARO, 08/10 Release d w/o [facility] Weiss Entered LORI Limitations Dieg o(S by: Trang Sharma MICHELLEEneida Managem ,LORI ent) D 10 Aug 2012 1117 ------- ------- ------- ------- -- CASE MANAGEM ENT OUTPATIENT [id number] Anila DOMINIC, 08/20 d w/o [facility] Entered [facility] Limitations Dieg o(S by: Trang CAMPOVERDELUISITOEneida Managem ,LORI ent) D 20 Aug 2012 0804 ------- ------- ------- ------- -- CASE MANAGEM ENT OUTPATIENT [id number] Bilater SERAFINE, 01/28 Rele ased w/o [employer] 2 al foot Limitations [employer] pain, [facility] hogue Navmn pain Support Activit y [place] ([facility] OUTPATIENT [id number] Blood SERAFINE, 02/03 Releas ed w/o [employer] 3 Pressur Limitations [employer] e eval [facility] [employer] Support Activ[employer] y [place] ([facility] OUTPATIENT [id number] Sleep SERAFINE, 03/04 Releas ed w/o [employer] 1 disturb Limitations [facility] e re Navmn for Support Sleep Activit study y [place] ([facility] Outpatient [id number] QAMAR MONTERO 10/04 [place] Encounter [id number] [facility] History [id number] 12/12 12/12 [place] [id number] /2021 Facilit y Access Lifetime [id number] 12/12 Ambula t Pharmacy ory Pharmac y Procedures Combined list of: 1) Procedures from Department of Veterans Affairs facilities going back up to the last 18 months, not all VA non-surgical procedures are included; 2) All procedures from the Department of Defense facilities. Procedure Procedure Type Code Date Perfomer Comments Sourc e No data available Am bulatory for this section Pha rmacy Case Management, MENELEY, DoD each 15 minutes 012 LORI D Coordinated care MENELEY, DoD fee, risk adjusted 012 LORI D maintenance Coordinated care MENELEY, DoD fee, risk adjusted 012 LORI D maintenance Case Management, MENELEY, DoD each 15 minutes 012 LORI D Coordinated care MENELEY, DoD fee, risk adjusted 012 LORI D maintenance Case Management, MENELEY, DoD each 15 minutes 012 LORI D Coordinated care MENELEY, DoD fee, risk adjusted 012 LORI D maintenance, Level 3 Case Management, MENELEY, DoD each 15 minutes 012 LORI D Audiometry Group Audiometry 22415 GABRIEL COLÓN Audiogram DoD Testing Group Testing 012 TIFFANIE WNL ECG Performance of ECG 79639 Trang LOVELACE oD Tracing Only Performance of 012 JUAN E Tracing Only Visual Function Visual 10614 YERGER, Jesus Screening Function 012 JUAN E Screening CASE MANAGEMENT, DoD EACH 15 MINUTES 012 COORDINATED CARE DoD FEE, RISK ADJUSTED 012 MAINTENANCE COORDINATED CARE DoD FEE, RISK ADJUSTED 012 MAINTENANCE REGIONAL LYMPH NODE DoD EXCISION 012 LAPAROSCOPIC ROBOTIC DoD ASSISTED PROCEDURE 012 POSTOPERATIVE DoD FOLLOW-UP VISIT, 012 NORMALLY INCLUDED IN THE SURGICAL PACKAGE, INDICATE THAT EVALUATION & MANAGEMENT SERVICE WAS PERFORMED DURING A POSTOPERATIVE PERIOD REASON RELATED ORIGINAL PROCEDURE POSTOPERATIVE DoD FOLLOW-UP VISIT, 012 NORMALLY INCLUDED IN THE SURGICAL PACKAGE, INDICATE THAT EVALUATION & MANAGEMENT SERVICE WAS PERFORMED DURING A POSTOPERATIVE PERIOD REASON RELATED ORIGINAL PROCEDURE POSTOPERATIVE DoD FOLLOW-UP VISIT, 012 NORMALLY INCLUDED IN THE SURGICAL PACKAGE, INDICATE THAT EVALUATION & MANAGEMENT SERVICE WAS PERFORMED DURING A POSTOPERATIVE PERIOD REASON RELATED ORIGINAL PROCEDURE POSTOPERATIVE DoD FOLLOW-UP VISIT, 012 NORMALLY INCLUDED IN THE SURGICAL PACKAGE, INDICATE THAT EVALUATION & MANAGEMENT SERVICE WAS PERFORMED DURING A POSTOPERATIVE PERIOD REASON RELATED ORIGINAL PROCEDURE POSTOPERATIVE DoD FOLLOW-UP VISIT, 012 NORMALLY INCLUDED IN THE SURGICAL PACKAGE, INDICATE THAT EVALUATION & MANAGEMENT SERVICE WAS PERFORMED DURING A POSTOPERATIVE PERIOD REASON RELATED ORIGINAL PROCEDURE SURGICAL TECHNIQUES [facility] REQUIRING USE OF 012 ROBOTIC SURGICAL SYSTEM (LIST SEPARATELY IN ADDITION TO CODE FOR PRIMARY PROCEDURE) COORDINATED CARE [facility] FEE, RISK ADJUSTED 012 MAINTENANCE, LEVEL 3 OPHTHALMOLOGICAL DoD SERVICES: MEDICAL 000 EXAMINATION AND EVALUATION WITH INITIATION OF DIAGNOSTIC AND TREATMENT PROGRAM; INTERMEDIATE, NEW PATIENT AUDIOMETRIC TESTING DoD OF GROUPS 000 OPHTHALMOLOGICAL DoD SERVICES: MEDICAL 000 EXAMINATION AND EVALUATION WITH INITIATION OF DIAGNOSTIC AND TREATMENT PROGRAM; INTERMEDIATE, NEW PATIENT THERAPEUTIC, DoD PROPHYLACTIC, OR 022 DIAGNOSTIC INJECTION (SPECIFY SUBSTANCE OR DRUG); SUBCUTANEOUS OR INTRAMUSCULAR UNLISTED SPECIAL [facility] SERVICE, PROCEDURE 012 OR REPORT AUDIOMETRIC TESTING DoD OF GROUPS 012 ELECTROCARDIOGRAM, D oD ROUTINE ECG WITH AT 012 LEAST 12 LEADS; TRACING ONLY, WITHOUT INTERPRETATION AND REPORT Social History Combined list of available smoking, [...] and Plan No data available for this 05/27/2022 A mbulatory Pharmacy section Functional Status Combined list of recent functional and cognitive assessments recorded at Department of Defense and Veterans Affairs ([place]VA Functional [place] Measurement (FIM) Scale: 1 = Total Assistance (Subject = 0% +), 2 = Maximal Assistance (Subject = 25% +), 3 = Moderate Assistance (Subject = 50% +), 4 = Mi nimal Assistance (Subject = 75% +), 5 = Supervision, 6 = Modified Ponce (Device), 7 = Complete Ponce (Timely, Safely). Assessment Source Assessment Type Assessment Assessment Assessmen t Date/Time Skill Score Details No data available for this section
--- OUTSIDE RECORDS SUMMARY | 2022-05-27 08:03 | XMS_ITS ---
[...] Active ? Not available BD Regular Bevel [place] 18 gauge x 1 Active ? Not [...] BLDV ? Estradiol, 45.6 20.0-47.0 F inal [place] Serum Sensitive pg/mL pg/mL [facility]: [address] 05/29/2020 CBC W/ Diff BLDV ? Wbc 9.80 3.80-10.80 Coby angely [place] 10*3/uL 10*3/uL [facility]: [address] [address], [place] ? ? BLDV ? Ne% 68.60 % 42.00-82.0 Final [place] 0 % [facility]: [address] [address], [place] ? ? BLDV ? Ly% 19.00 % 15.00-35.0 Final [place] 0 % [facility]: [address] [place] [address] ? ? BLDV ? Mo% 9.00 % 4.00-12.00 Final [place] bot[place] teacher % [facility]: [address] [place] [address], [place] ? ? BLDV ? Eo% 2.80 % 1.00-6.00 Final [place] % [facility]: [address] [place] [address], [place] ? ? BLDV ? Ba% 0.60 % 0.00-2.00 Final [place] % [facility]: [address] [place] [address] ? ? BLDV ? Ne# 6.70 1.50-7.80 Final [place] 10*3/uL 10*3/uL [facility]: [address] [place] [address] ? ? BLDV ? Ly# 1.90 0.85-3.90 Final [place] 10*3/uL 10*3/uL [facility]: [address] [place] [address] ? ? BLDV ? Mo# 0.90 0.20-0.95 Final [place] 10*3/uL 10*3/uL [facility]: [address] [place] [address] ? ? BLDV ? Eo# 0.30 0.02-0.50 Final [place] 10*3/uL 10*3/uL [facility]: [address] [place] [address] ? ? BLDV ? Ba# 0.10 0.00-0.20 Final [place] 10*3/uL 10*3/uL [facility]: [address] [place] [address] ? ? BLDV ? Rbc 5.55 4.20-5.80 Final [place] 10*6/uL 10*6/uL [facility]: [address] [place] [address] ? ? BLDV High Hgb 17.40 13.20-17.1 Final [place] bot[place] teacher g/dL 0 g/dL [facility]: [address] [place] [address] ? ? BLDV High Hct 52.00 % 38.50-50.0 Final [place] 0 % [facility]: [address] [place] [address] ? ? BLDV ? Mcv 93.50 80.00-100. Final [place] bot[place] teacher fL 00 fL [facility]: [address] [place] [address] ? ? BLDV ? Mch 31.40 27.00-33.0 Final [place] pg 0 pg [facility]: [address] [place] [address] ? ? BLDV ? Mchc 33.50 32.00-36.0 Final [place] g/dL 0 g/dL [facility]: [address] [place] [address] ? ? BLDV ? Rdw 13.50 % 11.00-15.0 Final [place] 0 % [facility]: [address] [place] [address] ? ? BLDV ? Plt 255.00 140.00-400 Final [place] botany teacher 10*3/uL .00 Urology - 10*3/uL [facility]: [address] [place] [address] ? ? BLDV ? Mpv 9.60 fL ? Final [place] [facility]: [address] [place] [address] 05/29/2020 Prostate BLDV ? PSA, Total 0.55 0.00-4.00 Fin al [place] Specific Ag, NG/mL NG/mL [facility]rol [facility] - [facility]: [address] [place] [address] 05/29/2020 Testosterone BLDV ? Testosterone 716.87 175.00- 781 Final [place] , NG/dL .00 NG/dL Urology - Bioavailable [facility] , Serum Lab: [address] [place] [address] ? ? BLDV ? Testosterone, 20.4 9.0-30.0 Final [place] Free NG/dL NG/dL [facility]: [address] [place] [address] ? ? BLDV ? % Ftesto 2.9 % ? Final [place] [facility]: [address] [place] [address] ? ? BLDV High Testosterone, 497 40-235 Final [place] Bioavailable NG/dL NG/dL [facility]: [address] [place] [address] ? ? BLDV ? Shbg 18.6 13.3-89.5 Final [place] nmol/L nmol/L [facility]: [address] [place], [place] [address] ? ? BLDV ? Albumin-olymp 4.5 3.5-5.0 Final [place] g/dL g/dL [facility]: [address] [facility] [address], [place] Past Encounters None recorded. Social History Tobacco [...]
[2022-05-27 14:45] LABS: Albumin* 4.4 g/dL (3.3-5.0); Chloride* 100 mmol/L (96-114)
[2022-05-27 14:46] LABS: Potassium* 4.6 mmol/L (3.6-5.1); Sodium* 136 mmol/L (135-149)
[2022-05-27 14:48] LABS: Bilirubin Total* 0.7 mg/dL (0.1-1.5); Creatinine* 1.1 mg/dL (0.5-1.5); Estimated Glomerular Filt Rate 82 ml/min
[2022-05-27 14:49] LABS: Alanine Aminotransferase* 90 U/L (4-50); Alkaline Phosphatase* 78 U/L (40-150); Aspartate Amino Transferase* 50 U/L (12-35); Blood Urea Nitrogen* 13 mg/dL (5-24); Calcium* 9.5 mg/dL (8.4-10.6); Carbon Dioxide* 26 mmol/L (20-32); Glucose* 118 mg/dL (60-115); Total Protein* 7.7 g/dL (6.0-8.3)
[2022-05-30 16:11] LABS: Sex Hormone Binding Globulin 26 nmol/L (17-56); Testosterone, Adult Male > 1500 ng/dL (300-890)
== END 2022-05-27 13:18 | disposition home or self-care (01) ==
PROVIDERS: PCP Family Medicine; Visit Provider Family Medicine
DX: R79.89 Other specified abnormal findings of blood chemistry (principal); Z85.47 Personal history of malignant neoplasm of testis
CPT/HCPCS: 80053; 84270; 84402; 84403

== ENCOUNTER 2022-06-13 17:38 | Outpatient (CLI) | payer OTHER, SELFPAY ==
--- NOTE | 2022-06-13 17:30 | MR_ITS ---
[facility] [address] [facility] [address] Phone:?[phone] Fax:?[phone] Referring Physician Information: Jose Manuel Hernandez M.D. [address] [facility] [address] Phone:?[phone] Fax:?[phone] Patient:Len See D.O.B:?1970 Sex:?Male Phone:?[phone] [facility] MRN:?[id number] Exam Date:?06/13/2022 ? EXAM: MRI of the RIGHT SHOULDER, without contrast CLINICAL HISTORY: Injury of right shoulder. Suspect tear. COMPARISONS: MRI 08/31/2021. TECHNICAL: MRI sequences of the right shoulder: Axials: PD, T2 Coronals: PD, STIR, T2 Sagittals: PD, T2 SEDATION: None CONTRAST: None FINDINGS: Bones: No fracture or suspicious bone marrow signal abnormality. Coracoacromial arch: Acromion: No os acromiale. Type I-II acromion. Acromiohumeral space: The bony distance is unremarkable. Coracohumeral space: The bony distance is unremarkable. Acromioclavicular joint: No acute injury, arthropathy, or inferior hypertrophy. Coracoclavicular ligament: The coracoclavicular ligament is intact. Rotator cuff muscles/tendons: Supraspinatus: There is undersurface fraying and moderate tendinopathy of the supraspinatus tendon with superimposed ill-defined low-grade partial tearing with retraction of some torn intrasubstance and undersurface fibers to the level of the rotator cable best seen on coronal series 4 images 12 through 15 and sagittal series 8 images 10 and 9. This supraspinatus tendon pathology has moderately to markedly increased/progressed compared to previous MRI 08/31/2021. There is no atrophy of the supraspinatus muscle. Infraspinatus: The infraspinatus tendon and muscle are intact. Teres minor: The teres minor tendon and muscle are intact. Subscapularis: Interstitial delamination and moderate tendinopathy of the subscapularis tendon, similar compared to previous MRI 08/31/2021. No atrophy of the subscapularis muscle. Labrum: No evidence of labral tear although evaluation is suboptimal because of nonarthrogram technique. Proximal biceps tendon, long head and short heads: The long and short heads of the proximal biceps tendon are intact. Glenohumeral joint: Physiologic amount of joint fluid. No full-thickness chondral defect or subchondral bone marrow edema/cystic change is seen. There is borderline edema-like signal within and thickening of the glenohumeral joint capsule/inferior glenohumeral ligament best seen on coronal series 4 and 5 images 15 through 23. Bursae: Subacromial/subdeltoid: Minimal bursitis. Subcoracoid: No convincing subcoracoid bursal thickening/bursitis. IMPRESSION: 1. Undersurface fraying and moderate tendinopathy of the supraspinatus tendon with superimposed ill-defined low-grade partial tearing with retraction of some torn intrasubstance and undersurface fibers to the level of the rotator cable. This supraspinatus tendon pathology has moderately to markedly increased/progressed compared to previous MRI 08/31/2021. 2. Interstitial delamination and moderate tendinopathy of the subscapularis tendon, similar compared to previous MRI 08/31/2021. 3. No atrophy of the rotator cuff musculature. 4. Findings associated with adhesive capsulitis, but this is more of a clinical diagnosis. Correlate with active and passive range of motion. 5. Minimal subacromial/subdeltoid bursitis. 6. Intact biceps tendon. RCB Electronically signed on 06/14/2022 7:42:00 AM by Rodolfo Norris M.D.
--- OUTSIDE RECORDS SUMMARY | 2022-06-13 17:40 | XMS_ITS | Encounter Summary ---
:1970 Author Organization [place] Address [facility] [place] [address] Care Team Providers Name Role Phone [facility] [phone] Encounter Details Date Type Department Care [...] on filedocumented in this encounter Care Teams Metal Fence Erector Relationship Specialty Start Date End Date [facility], Keturah Betancourt PCP - General 03/25/20 [address] [place] [address] documented as of this encounter
--- OUTSIDE RECORDS SUMMARY | 2022-06-13 17:40 | XMS_ITS | Encounter Summary ---
:1970 Author Organization [place] Address [facility]0 [place] [address] Care Team Providers Name Role Phone Clinic, Keturah Betancourt Primary Care Provider [phone] Reason for Visit Reason Comments Palpitations Fatigue Diarrhea Encounter Details Date Type Department Care Team Description 03/25/2020 Emergency [facility] Jessica Tian MD Hypertension, [facility] Emergency Dep t EMERGENCY PHYSICIANS unspecified type [address] [place], [place] [address] [facility] [address] [facility] [phone] [place] [address] (Wo rk) Social History Tobacco [...] through Care Everywhere. Hypertension, New (Begin Treatment) (Belarusian)documented in this encounter Medications at Time of [...] and eating healthy. He was seen at [facility] where they did an EKG prior [...] Sinus rhythm Normal ECG Rate 77 bpm. NE interval 138. QRS duration 92. QT/QTc 356/402. [...] history of hypertension. [place] and just recently returned from [facility]. He hashad no recent fevers, URI [...] and the provider's statements to me. 03/25/2020 [facility] EMERGENCY DEPARTMENT Sathish Tian MD 03/26/20 1320 [...] Signature TSH 1.24 0.40 - 4.00 03/25/2020 [facility] mU/L 6:24 PM CDT HOSPITAL Specimen Anatomical Collection Method Collection Time Receive d Time (Source) Location / / Volume Laterality Blood specimen 03/25/2020 5:45 PM 020 5:53 (specimen) CDT PM CDT Sathish Tian MD LAB - BLOOD ORDERABLES Performing Organization Address [facility] Phon e Number M [facility] [address] [place], [place] [address] [facility] [address] [place], [place] [address] [address] Troponin I (03/25/2020 5:45 PM CDT) athologist Signature Troponin I ES <0.015 0.000 - 03/25/2020 [place] 0.045 ug/L 6:18 PM [facility] Comment: The 99th percentile for upper reference [...] LAB - BLOOD ORDERABLES Performing Organization Address [facility] Phon e Number [facility] [address] [place], [place] [address] [facility] [address] [place], [place] [address] [address] (ABNORMAL) Comprehensive metabolic panel (03/25/2020 5:45 PM CDT) athologist Signature Sodium 136 133 - 144 03/25/2020 [place] mmol/L 6:07 PM [facility] Potassium 3.8 3.4 - 5.3 03/25/2020 [place] mmol/L 6:07 PM [facility] Chloride 102 94 - 109 03/25/2020 [place] mmol/L 6:07 PM [facility] Carbon Dioxide 29 20 - 32 03/25/2020 [place] mmol/L 6:14 PM [facility] Anion Gap 5 3 - 14 03/25/2020 [place] mmol/L 6:14 PM [facility] Glucose 93 70 - 99 03/25/2020 [place] mg/dL 6:14 PM [facility] Urea Nitrogen 16 7 - 30 03/25/2020 [place] mg/dL 6:14 PM [facility] Creatinine 1.19 0.66 - 03/25/2020 [place] 1.25 mg/dL 6:14 PM [facility] GFR Estimate 72 >60 03/25/2020 [place] mL/min/{1. 6:14 PM [facility] 73_m2} HOSPITAL Comment: Non GFR Calc Starting 09/11/2018, serum creatinine ba sed estimated GFR (eGFR) will be calculated using the Chronic Kidney Dise [facility] Epidemiology Collaboration (CKD-EPI) equation. GFR Estimate If 83 >60 mL/min/{1.73_m2} 03/25/2020 6: 14 PM [facility] Comment: GFR Calc Starting 09/11/2018, serum creatinine ba sed estimated GFR (eGFR) will be calculated using the Chronic Kidney Dise [facility] Epidemiology Collaboration (CKD-EPI) equation. Calcium 9.0 8.5 - 10.1 03/25/2020 6:14 PM [place] R IDGES mg/dL [facility] Bilirubin Total 0.5 0.2 - 1.3 mg/dL 03/25/2020 6:16 PM [facility] Albumin 4.0 3.4 - 5.0 g/dL 03/25/2020 6:16 PM [facility] Protein Total 8.0 6.8 - 8.8 g/dL 03/25/2020 6:16 PM [facility] Alkaline Phosphatase 78 40 - 150 U/L 03/25/2020 6:16 PM [facility] ALT 91 (H) 0 - 70 U/L 03/25/2020 6:16 PM [facility] AST 49 (H) 0 - 45 U/L 03/25/2020 6:16 PM [facility] Specimen Anatomical Collection Method Collection Time Receive d Time (Source) Location / / Volume Laterality Blood specimen 03/25/2020 5:45 PM 020 5:53 (specimen) CDT [facility] MD LAB - BLOOD ORDERABLES Performing Organization Address City/State/ZIP Code Phon e Number M [facility] [address], [place] [address] [facility] [address] [place], [place] [address], [facility] [phone] [address] [place] [address] [place] [address], [facility] [phone] [facility] CBC with platelets differential (03/25/2020 5:45 PM CDT) [facility] gist Method Time Signature WBC 10.0 4.0 - 03/25/2020 [facility] 11.0 5:59 PM [facility] 10e9/L [facility] RBC Count 5.62 4.4 - 5.9 03/25/2020 [facility] 10e12/L 5:59 PM [facility] Hemoglobin 17.5 13.3 - 03/25/2020 [facility] 17.7 g/dL 5:59 PM [facility] Hematocrit 52.4 40.0 - 03/25/2020 [facility] 53.0 % 5:59 PM [facility] MCV 93 78 - 100 03/25/2020 [facility] fl 5:59 PM [facility] MCH 31.1 26.5 - 03/25/2020 [facility] 33.0 pg 5:59 PM [facility] MCHC 33.4 31.5 - 03/25/2020 [facility] 36.5 g/dL 5:59 PM [facility] RDW 12.8 10.0 - 03/25/2020 [facility] 15.0 % 5:59 PM [facility] Platelet Count 283 150 - 450 03/25/2020 [facility] 10e9/L 5:59 PM [facility] Diff Method Automated 03/25/2020 [facility] Method 5:59 PM [facility] % Neutrophils 58.6 % 03/25/2020 [facility] 5:59 PM [facility] % Lymphocytes 27.3 % 03/25/2020 [facility] 5:59 PM [facility] % Monocytes 8.1 % 03/25/2020 [facility] 5:59 PM [facility] % Eosinophils 4.4 % 03/25/2020 [facility] 5:59 PM [facility] % Basophils 0.9 % 03/25/2020 [facility] 5:59 PM CDT [facility] % Immature 0.7 % 03/25/2020 [facility] Granulocytes 5:59 PM [facility] Nucleated RBCs 0 0 /100 03/25/2020 [facility] 5:59 PM [facility] Absolute 5.9 1.6 - 8.3 03/25/2020 [facility] Neutrophil 10e9/L 5:59 PM [facility] Absolute 2.7 0.8 - 5.3 03/25/2020 [facility] Lymphocytes 10e9/L 5:59 PM [facility] Absolute 0.8 0.0 - 1.3 03/25/2020 [facility] Monocytes 10e9/L 5:59 PM [facility] Absolute 0.4 0.0 - 0.7 03/25/2020 [facility] Eosinophils 10e9/L 5:59 PM [facility] Absolute 0.1 0.0 - 0.2 03/25/2020 [facility] Basophils 10e9/L 5:59 PM [facility] Abs Immature 0.1 0 - 0.4 03/25/2020 [facility] Granulocytes 10e9/L 5:59 PM [facility] Absolute 0.0 03/25/2020 [facility] Nucleated RBC 5:59 PM [facility] Specimen Anatomical Collection Method Collection Time Receive d Time (Source) Location / / Volume Laterality Blood specimen 03/25/2020 5:45 PM 020 5:53 (specimen) CDT PM CDT Sathish Tian MD LAB - BLOOD ORDERABLES Performing Organization Address City/State/ZIP Code Phon e Number [facility] [address] [address] [facility] [address] [phone] EKG 12-lead, tracing only (03/25/2020 5:36 PM CDT) [facility] gist Method Time Signature Interpretation ECG Click View RADIOLOGY Image link RESULTS to view waveform and result Specimen (Source) Anatomical Collection Method Collection Time Re ceived Time Location / / Volume Laterality 03/25/2020 5:36 PM CDT Sathish Tian MD ECG ORDERABLES Performing Organization Address City/[facility]/ZIP [facility] Phon e Number RADIOLOGY RESULTS documented in this encounter Visit Diagnoses Diagnosis Hypertension, unspecified type documented in this encounter Care Teams Central Office Equipment Engineer Relationship Specialty Start Date End Date Clinic, Keturah Betancourt PCP - General 03/25/20 [address] [place] [address] documented as of this encounter
--- OUTSIDE RECORDS SUMMARY | 2022-06-13 17:40 | XMS_ITS | Encounter Summary ---
:1970 Author Organization [place] Address [address] [place] [address]. [place] [address] Care Team Providers Name Role Phone Unavailable [...]
--- OUTSIDE RECORDS SUMMARY | 2022-06-13 17:40 | XMS_ITS | Clinical Summary ---
:1970 Author Organization [place] Address [address] [facility] [place] [address] Care Team Providers Name Role Phone Clinic, Keturah Betancourt Primary Care Provider [phone] Medications Medication Sig Dispensed Refills Start [...] 111.1 kg (245 lb) 11/03/2018 4:33 AM NEUROSURGEON Height 180.3 cm (5' 11) 11/03/2018 4:33 AM NEUROSURGEON Body Mass Index 34.17 11/03/2018 4:33 AM NEUROSURGEON Plan of Treatment Health Maintenance Due Date [...] Phone Address Type / Group /POLLO PRIME [id number] 2017-Presen [phone] [employer] [employer] [place] [address] [place] [address] /[employer] [id number] 2018-Presen [phone] [employer] [employer] [address] [place] [address] Care Teams Burner Operator Relationship Specialty Start Date End Date Clinic, Keturah Betancourt PCP - General 03/25/20 [address] [place] [address]
--- OUTSIDE RECORDS SUMMARY | 2022-06-13 17:41 | XMS_ITS | Encounter Summary ---
:1970 Author Organization [place] Address [facility] [place] [address] Care Team Providers Name Role Phone Unavailable Primary Care Provider Unavailable Reason for Visit Reason Onset Date Comments Walk In Clinic 10/28/2011 back pain Encounter Details Date Type Department Care Team Description 10/28/2011 Telephone [facility] None [facility] [place] [address] [facility], [address] [place] [address] Social History Tobacco Use [...] Gordon RN Message Handled by Nurse Triage ER OPERATOR documented in this encounter Plan of Treatment Not on filedocumented as of this encounter Visit Diagnoses Not on filedocumented in this encounter
--- OUTSIDE RECORDS SUMMARY | 2022-06-13 17:41 | XMS_ITS | Encounter Summary ---
:1970 Author Organization [place] Address [facility] [place] [address] Care Team Providers Name Role Phone Unavailable Primary Care Provider Unavailable Reason for Visit Reason Comments Pharyngitis Encounter Details Date Type Department Care Team Description 11/03/2018 Emergency [facility] Solomon Barnes MD Pharyngitis, [facility] Emergency Dep t EMERGENCY PHYSICIANS unspecified etiology [address] [place], [place] [address] [facility] [address] [place] [address] [phone] (Wo rk) Social History Tobacco Use Types [...] Comments Blood Pressure 138/92 11/03/2018 5:26 AM CHEF'S ASSISTANT Pulse 87 11/03/2018 5:26 AM CHEF'S ASSISTANT Temperature 36.9 ??C (98.5 ??F) 11/03/2018 4:33 AM CHEF'S ASSISTANT Respiratory Rate 20 11/03/2018 5:26 AM CHEF'S ASSISTANT Oxygen Saturation 99% 11/03/2018 5:26 AM CHEF'S ASSISTANT Inhaled Oxygen Concentration - - Weight 111.1 kg (245 lb) 11/03/2018 4:33 AM CHEF'S ASSISTANT Height 180.3 cm (5' 11) 11/03/2018 4:33 AM CHEF'S ASSISTANT Body Mass Index 34.17 11/03/2018 4:33 AM CHEF'S ASSISTANT documented in this encounter Discharge Instructions AttachmentsThe following attachments cannot be sent through Care Everywhere. PHARYNGITIS, REPORT PENDING ([place])documented in this encounter Medications at Time of [...] no fever, c/o fatigue. C/o sinus congestion. 'S ASSISTANT Solomon Barnes MD - 11/03/2018 4:26 AM [...] provider's statements to me. Arnaud Gold 11/03/2018 [facility] EMERGENCY DEPARTMENT Solomon Barnes MD 11/03/18 0618 'S ASSISTANT documented in this encounter Miscellaneous Notes Result Encounter Note - Cornelio Jansen RN - 11/03/2018 5:27 AM CST Final Beta strep group A r/o culture is NEGATIVE for Group A streptococcus. No treatment or change in treatment per [place] Strep protocol. 'S ASSISTANT documented in this encounter Plan of Treatment Not on filedocumented as of this encounter Procedures Procedure Name Priority Date/Time Associated Diagnosis Comme nts RAPID STREP SCREEN STAT 11/03/2018 4:52 AM Res ults for this THROAT SWAB CHEF'S ASSISTANT procedure are i n the results section. BETA HEMOLYTIC Routine 11/03/2018 4:52 AM Pharyngitis, Results for this STREP GROUP A CHEF'S ASSISTANT unspecified etiology proced ure are in CULTURE the results section. documented in this encounter Results Beta strep group A culture (11/03/2018 4:52 AM CHEF'S ASSISTANT) Component Value Ref Test Analysis Performed At [facility] Range Method Time Signature Specimen Throat INFECTIOUS Description DISEASE DIAGNOSTIC LABORATORY Special Specimen 11/03/2018 [facility] collected in 11:49 AM [place] [facility]ICAL eSwab transport CHEF'S ASSISTANT [facility] BANK Culture Micro No Beta 11/05/2018 INFECTIOUS Streptococcus 6:16 AM CHEF'S ASSISTANT DISEASE isolated DIAGNOSTIC LABORATORY Specimen Anatomical Collection Method Collection Time Receive d Time (Source) Location / / Volume Laterality Specimen from 11/03/2018 4:52 AM 11/03/19 19 5:07 throat CHEF'S ASSISTANT AM CHEF'S ASSISTANT (specimen) Solomon Barnes MD LAB - MICRO GENERAL ORDERABL ES Performing Organization Address City/State/ZIP Code Phon e Number INFECTIOUS DISEASES [address] [place] [address] DIAGNOSTIC LABORATORY, [facility] INFECTIOUS DISEASE [address] [place] [address], [facility] DIAGNOSTIC LABORATORY [address] [address], [facility] Rapid strep screen (11/03/2018 4:52 AM CHEF'S ASSISTANT) Component Value Ref Test Analysis Performed At [facility] Range Method Time Signature Specimen Throat [facility] Rapid Strep A NEGATIVE: No 11/03/2018 [place] Screen Group A 5:06 AM CHEF'S ASSISTANT [facility] antigen detected by immunoassay, await culture report. Specimen Anatomical Collection Method Collection Time Receive d Time (Source) Location / / Volume Laterality Specimen from 11/03/2018 4:52 AM 11/03/19 19 4:56 throat CHEF'S ASSISTANT AM CHEF'S ASSISTANT (specimen) Solomon Barnes MD LAB - MICRO GENERAL ORDERABL ES Performing Organization Address City/[facility]/ZIP [facility] Phon e Number [place] [address] [address] [address] [phone] documented in this encounter Visit Diagnoses Diagnosis Pharyngitis, unspecified etiology documented in this encounter Administered Medications Inactive Administered Medications - up to 3 most recent administrations Medication Order MAR Action Action Date Dose Rate Site dexamethasone (DECADRON) tablet 10 Given 11/03/2018 4:52 AM CHEF'S ASSISTANT 10 mg mg 10 mg, Oral, ONCE, On 11/03/18 at 0446, For 1 dose documented in this encounter Active and Recently Administered Medications Times are shown in CHEF'S ASSISTANT. Scheduled Medication Order 11/01/2018 11/02/2018 11/03/2018 dexamethasone (DECADRON) tablet 10 mg (COMPLETED) 0452 (Given - Provider: Susannah Lobo RN) 10 mg, Oral, ONCE, 11/03/18 at 0446, For 1 dose documented in this encounter
--- OUTSIDE RECORDS SUMMARY | 2022-06-13 17:41 | XMS_ITS | Continuity of Care Document ---
:1970 Author Organization [facility] Care Team Providers Name Role Phone [facility] Unavailable Unavailable Problems Combined list of problems from Department of Defense and Veterans Affairs facilities. It does not include entries that were removed or entered in error. Problem Status Onset Date Problem Type Date of Comments Source Resolution Aftercare Following Inactive Condition [facility] conditions Active Condition DoD influencing health status visit for: Active Condition DoD services physical testicular cancer Active Condition Do D Testes Mass (___cm) Active Condition DoD visit for: ears / Active Condition Do D hearing exam visit for: Active Condition [facility] occupational health / fitness exam visit for: Inactive Condition [facility] administrative purpose Medications Combined list of outpatient medications from Department of Defense and Veterans Affairs facilities. Medications provided include 1) outpatient medications from the last 15 months, and 2) patient-reported medications. Medication Details Route Status Patient Prescription Prescription Last Ordering Order Source Instructions Expires Number Dispense Provider Date Date ACETAMINOPH TAKE 1 Oral 06/05/2022 [id number] MILY MUSTAFA 05/06/ [place] EN (U/D) TO 2 2 2021 [place] 325 MG ORAL TABLETS [place] S a TAB BY MOUTH EVERY SIX HOURS NEEDED FOR PAIN/FEV ER DICLOFENAC Active [id number] [facility], 07/29 / Pharmac SODIUM 2020 y Data (DICLOFENAC Transac SODIUM), 50 tion MG, TABLET Service LUX BELLE, Facilit PACK y PHARMACEUT, 100 ea. BOTTLE DICLOFENAC Active [id number] [facility], 08/27 / Pharmac SODIUM 2020 y Data (DICLOFENAC Transac SODIUM), 50 tion MG, TABLET Service DR ORAL, Facilit PACK y PHARMACEUT, 100 ea. BOTTLE diclofenac diclofenac sodium 50 mg oral delayed release tablet Order ed Ambulat sodium 50 Start Date: 07/29/21 ory mg oral Status: Ordered Ph armac delayed y release tablet IBUPROFEN TAKE ONE Oral 06/05/2022 [id number] MILY MUSTAFA 05/06/ [place] (U/D) 600 TABLET 2 2021 [place] MG ORAL TAB BY MOUTH [place] S a EVERY 6-8 HOURS WITH FOOD NEEDED FOR PAIN LISINOPRIL Active [id number] [facility], 04/17 / Pharmac (lisinopril 2 2021 y Data ), 10 MG, Transac TABLET, tion ORAL, LUPIN Service PHARMACEU, Facilit 1000 ea. y BOTTLE lisinopril lisinopril 10 mg oral tablet Ordered Ambulat 10 mg oral Start Date: 05/13/21 ory tablet Status: Ordered Pha rmac y LUER-SHANE Active [id number] [facility], 02/20/ P harmac SYRINGE-NEE 2 2021 y Data DLE Transac (syringe tion with Service needle,disp Facilit osable, 3 y mL), 25GX1, DISP SYRIN, MISCELL, BD MEDICAL SURG, 100 ea. BOX LUER-SHANE Active [id number] [facility], 04/20/ P harmac SYRINGE-NEE 2 2021 y [...] INTRAMUSC, PERRIGO/PAD AGIS, 1 ml TESTOSTERON Active [id number] [facility], 05/26/ Pharmac E CYPIONATE 2 2021 y Data (testostero Transac ne tion cypionate), Service 200 MG/ML, Facilit VIAL, y INTRAMUSC, PERRIGO/PAD AGIS, 1 ml VIAL TESTOSTERON Active [id number] [facility], 02/23/ Pharmac E CYPIONATE 2 2021 y Data (testostero Transac ne tion cypionate), Service 200 MG/ML, Facilit VIAL, y INTRAMUSC, PERRIGO/PAD AGIS, 1 ml VIAL TESTOSTERON Active [id number] [facility], 03/26/ Pharmac E CYPIONATE 2 2021 y Data (testostero Transac ne tion cypionate), Service 200 MG/ML, Facilit VIAL, y INTRAMUSC, PERRIGO/PAD AGIS, 1 ml VIAL TESTOSTERON Active [id number] [facility], 08/27/ Pharmac E CYPIONATE 1 2020 y Data (testostero Transac ne tion cypionate), Service 200 MG/ML, Facilit VIAL, y INTRAMUSC, PERRIGO/PAD AGIS, 1 ml VIAL TESTOSTERON Active [id number] [facility], 08/27/ Pharmac E CYPIONATE 1 2020 y Data (testostero Transac ne tion cypionate), Service 200 MG/ML, Facilit VIAL, y INTRAMUSC, PERRIGO/PAD AGIS, 1 ml VIAL TESTOSTERON Active [id number] [facility], / Pharmac E CYPIONATE 2 2021 y Data (testostero Transac ne tion cypionate), Service 200 MG/ML, Facilit VIAL, y INTRAMUSC, PERRIGO/PAD AGIS, 1 ml VIAL TESTOSTERON Active [id number] [facility], 11/24/ Pharmac E CYPIONATE 2 2021 [...] SUN PHARMACEUTI , 1 ml TESTOSTERON Active [id number] [facility], 08/14 / Pharmac E CYPIONATE 1 [...] type Reported No Known Drug Drug active [place] Allergies allergy allergy 2 [place] Immunizations Combined list of available immunizations from the Department of Defense and Veterans Affairs facilities. Immunization Series Date Administered Site Reaction Lot CVX Drug St atus Comments Source Given By Number Code Psychiatric Tech influenza, 158 GlaxoSmithKli comple t influenza, injectable, quadrivalent [...] or y Given Pharmac y SARS-COV-2 2 208 Pfizer, Inc complet SARS-COV- DoD (COVID-19) 2020 [...] free quadrival ent, preservat elizabeth free tetanus, UNK 115 sanofi complet tetanus , diphtheria, acellular pertussis Ambulat diphtheria, 2019 pasteur ed 0 ory acellular Given Phar mac pertu is y tetanus 2 UNK 115 Sanofi complet tetanus DoD toxoid, 2019 Pasteur (PMC) ed toxo id, reduced reduced diphtheria diphtheri toxoid, and a toxoid , acellular and pertu is acellular vaccine, pertussis adsorbed vaccine, adsorbed influenza, UNK 150 Seqirus complet infl uenza, injectable, quadrivalent-pf Ambulat injectable, 2018 ed 08/14/19 ory quadrivalent- Given Pharmac pf y Influenza, 0 UNK 150 Seqirus (SEQ) comple [...] free quadrival ent, preservat elizabeth free influenza UNK 88 Seqirus complet influ rosio virus vaccine, inactivated Ambulat virus 2016 ed 07/09/17 ory vaccine, Given Pharm ac inactivated y Influenza, 0 UNK 186 Seqirus (SEQ) comple t Influenza DoD injectable, 2016 ed , Amaya Hanson injectab l Canine e, Amaya KidneyMargie quadrivalent Canine with Kidney, preservative quadriv al ent with preservat elizabeth influenza, 7NT2G 158 GlaxoSmithKli comple t influenza, injectable, quadrivalent Ambulat injectable, 2015 ne ed 08/11/16 ory quadrivalent Given P harmac y influenza, 0 7NT2G 158 SmithKline complet i nfluenza DoD injectable, 2015 (SKB) ed , quadrivalent, inject abl contains e, preservative quadriv al ent, contains preservat elizabeth influenza, UNK 140 complet influe nza, seasonal, injectable-pf Ambulat seasonal, 2014 ed 09/24/15 o ry injectable-pf Given Pharmac y Influenza, 0 140 (TRN) complet Influe nza DoD seasonal, 2014 ed , injectable, seasonal , preservative injecta bl free e, preservat eliazbeth free influenza, 149 Medimmune Inc compl et [...] complet season al DoD influenza, 2012 Pasteur ([facility]) ed i nfluenza intradermal, , preservative intrade [...] free e, preservat elizabeth free influenza 111 MediCatbirdune Inc complet influenza virus vaccine, live Ambulat virus 2010 ed 06/12/11 ory vaccine, live Given Pharmac y influenza 0 111 MedImmune, complet in fluenza DoD virus 2010 Inc. (MED) ed virus vaccine, vaccine, live, live, attenuated, attenuat e for d, for intranasal intranasa use l use influenza [id number] 111 [employer] Storage [employer] Inc compl et influenza virus vaccine, live Ambulat virus 2009 ed 08/13/10 ory vaccine, live Given Pharmac y hepatitis [id number] [address] compl et hepatitis A-hepatitis B vaccine Ambulat A-hepatitis B 2009 6BB ne ed ory vaccine Given Pharma c y hepatitis A 3 [id number] 104 SmithKline comple t hepatitis DoD and hepatitis 2009 6BB (SKB) ed A and B vaccine hepatitis B vaccine influenza 0 [id number] 111 MedImmune, complet influenza DoD virus 2010 Inc. (MED) ed virus vaccine, vaccine, live, live, attenuated, attenuat e for d, for intranasal intranasa use l use hepatitis BB17 104 GlaxoSmithKli compl et hepatitis A-hepatitis B vaccine Ambulat A-hepatitis B 2009 4AA ne ed 0 ory vaccine Given Pharma c y hepatitis A 2 BB 104 SmithKline comple t hepatitis DoD and hepatitis 2009 4AA (SKB) ed A and B vaccine hepatitis B vaccine tetanus, [id number] 115 GlaxoSmithKli comple t tetanus, diphtheria, acellular pertussis Ambulat diphtheria, 2009 6BA ne ed 01/16/10 ory acellular Given Phar mac pertu is y hepatitis BB17 104 GlaxoSmithKli compl et hepatitis A-hepatitis B vaccine Ambulat A-hepatitis B 2009 4AA ne ed 0 ory vaccine Given Pharma c y poliovirus B0476 10 Fusionone Electronic Healthcareune Inc comple t poliovirus vaccine, inactivated Ambulat vaccine, 2010 ed 01/16/10 ory inactivated Given Ph armac y measles/mumps 04510 03 Merck & complet measles/mumps/rubella virus vaccine Ambulat /rubella 2010 Company Inc ed ory virus vaccine Given Pharmac y measles, 0 04510 03 Merck (MSD) complet measles, DoD mumps and 2010 ed mumps and rubella virus rubell a vaccine virus vaccine poliovirus 0 B0476 10 TouchBistroune, complet p olioviru DoD vaccine, 2010 Inc. (MED) ed s inactivated vaccine, inactivat ed hepatitis A 1 AHABB17 104 SmithKline comple t hepatitis DoD and hepatitis 2009 4AA (SKB) ed A and B vaccine hepatitis B vaccine tetanus 0 01/16/ [id number] 115 SmithKline complet te tanus DoD toxoid, 2009 6BA (SKB) ed toxoid, reduced reduced diphtheria diphtheri toxoid, and a toxoid , acellular and pertu is acellular vaccine, pertussis adsorbed vaccine, adsorbed measles/mumps UNK 03 Merck & complet m easles/mumps/rubella virus vaccine Ambulat /rubella 1996 Company Inc ed 07/23 ory virus vaccine Given Pharmac y measles, 1 K Merck (MSD) complet me asles, DoD mumps [...] AND D /2021 Comment: Cephei d GeneXpert (641) IS [place] [employer] FLU/RS CORONAVIRUS Ordering Pr ovider: JENNYFER MONTERO RNA Report Released Date/Time: Oct 04, 2021 11:22 AM PANEL( [PRESENCE] Reporting La b: [facility] Instabug CEPHEI IN [address] [facility] [id number] D) RESPIRATORY Performing Lab: [facility] SPECIMEN BY ONE [facility] [id number] [place] WITH PROBE DETECTION COVID- INFLUENZA Not 10/04 Specimen Type: NASOPHARYNGEAL [place] 19 AND VIRUS A RNA Detected /2021 Comment: Jamie TMMI (TMM Inc.)d Max Planck [place] InstituteXpert (975) IS [place] [employer] FLU/RS [PRESENCE] Ordering Pro vider: JENNYFER MONTERO IN UPPER Report Release d Date/Time: Oct 04, 2021 11:22 AM PANEL( RESPIRATORY Reporting L ab: [facility] CEPHEI SPECIMEN BY ONE [facility] [phone] D) [place] WITH Performing Lab : [facility] PROBE [address] [facility] [address] DETECTION COVID- INFLUENZA Not 10/04 Specimen Type: NASOPHARYNGEAL [place] 19 AND VIRUS B RNA Detected /2021 Comment: C ConforMISeid GeneXpert (006) IS [place] [employer] FLU/RS [PRESENCE] Ordering Pro vider: JENNYFER MONTERO IN UPPER Report Release d Date/Time: Oct 04, 2021 11:22 AM PANEL( RESPIRATORY Reporting L ab: [facility] CEPHEI SPECIMEN BY ONE S [facility] [id number] D) [place] WITH Performing Lab : [facility] PROBE [address] [facility] [address] DETECTION COVID- RESPIRATORY Not 10/04 Specimen Typ e: NASOPHARYNGEAL [place] 19 AND SYNCYTIAL Detected /2021 Comment: Cep heid GeneXpert (618) IS [facility] FLU/RS VIRUS RNA Ordering Prov ider: JENNYFER MONTERO [PRESENCE] Report Relea sed Date/Time: Oct 04, 2021 11:22 AM PANEL( IN UPPER Reporting Lab: [facility] CEPHEI RESPIRATORY ONE [facility] [address] D) SPECIMEN BY Performing Lab: [facility] LUCRECIA WITH [address] [facility] [address] PROBE DETECTION Vital Signs Combined list of [...] going back up to the last 18 months. 2) Encounters from the Department of Defense facilities going back up to 280 months. Location Location Encounter Encounter Reason Attending ADM DC Stat us Disposition Source Details Type Number For Provider Date Date Visit OUTPATIENT [id number] Sebastián LOVELACE, 04/03 Releas ed w/o NH t JUAN Limitations Dougie a[facility] [place] OUTPATIENT [id number] Audiogr JOCODY, 04/03 Released w/o [place] am Limitations Dougie TIFFANIE a([facility] [place] OUTPATIENT [id number] sebastián HUFFMAN, 04/09 Rele ased w/o NH jordana MUNOZ Limitations Dougie physica a([facility] [id number] [place]) OUTPATIENT [id number] Notes BRANDON 04/18 Admit louis ANGELES Weinstein Dougie by: pasha([facility] ) 18 Apr 2012 0934 ------- ------- ------- ------- -- Testicu lar [facility] TELE [id number] Notes ARMIDA, 04/19 [place] CONSULT Entered Dougie by: pasha(Kadi turner Olegario CastellanosTAMMY - [place]) Mar 2012 0842 ------- ------- ------- ------- -- F/u on OUTPATIENT [id number] Notes BRANDON 04/26 Relea sed w/o [place] Entered , Limitations Geronimo wise by: pasha([facility] ) 26 Apr 2012 1150 ------- ------- ------- ------- -- post op and lab work follow up OUTPATIENT [id number] Notes BRANDON 05/02 Relea sed w/o [place] Entered , Limitations Geronimo wise by: pasha([facility] ) 02 May 2012 1359 ------- ------- ------- ------- -- follow up OUTPATIENT [id number] PATIENT TAMMY OLSON 06/04 Rel eased w/o [facility] Weiss ODIN Limitations Louis([facility]) OUTPATIENT [id number] Anila ALFARO 06/04 Release d w/o [facility] Abhishek Costello Limitations Charisse stallworth(S by: LORI Christensen ent) D 04 Jun 2012 1356 ------- ------- ------- ------- -- CASE DANNIE ENT OUTPATIENT [id number] Notes BRANDON 06/05 Relea sed w/o [place] Weiss Entered , Limitations Mohini hinojosao(S by: JANELLE FAULKNER Urology LARRY 11 ) May 2012 0854 ------- ------- ------- ------- -- W/I pre-op DIRECT TO [id number] SEN, 06/07 06/12 RETURN ED TO [facility] 7 ABBY S /2011 DUTY Louis MTF FROM OTHER THAN ER OR APU TELE [id number] Anila ALLISON, 06/12 Referred fo r [facility] Weiss CONSULT Entered PAPI C Appointment Louis(S by: Trang BERGER Urology Y,VETO ) RE C 12 Jun 2012 1623 ------- ------- ------- ------- -- Postop call back OUTPATIENT [id number] post op BRANDON 06/18 Rel eased w/o [facility] follow- , ANGELES Limitations Di ego(S up/Lap D RPLND [facility]rology Robotic ) Surgery OUTPATIENT [id number] Notes BRANDON 07/05 Relea sed w/o [facility] Entered ANGELES Limitations Di ego(S by: JANELLE FAULKNER [facility]rology LARRY 11 ) Jun 2012 1041 ------- ------- ------- ------- -- F/u w/i OUTPATIENT [id number] Anila ALFARO, 07/13 Release d w/o [facility] Weiss Entered LORI Limitations Charisse stallworth(S by: LORI Christensen ent) D 13 Jul 2012 1354 ------- ------- ------- ------- -- CASE MANAGEM ENT TELE [id number] Anila BARKSDALE 08/03 [facility] Sa n CONSULT Entered NIMA Louis (S by: Trang BARKSDALE [facility] ,LORRAINE ) LY L 02 Aug 20121956 ------- ------- ------- ------- -- Fit for duty TELE [id number] TAMMY OLSON 08/03 [facility] Weiss CONSULT Louis(M ed Hold [facility]) OUTPATIENT [id number] Anila ALFARO, 08/10 Release d w/o [facility] Weiss Entered LORI Limitations Charisse o(S by: Trang Jovel ,LORI ent) D 10 Aug 2012 1117 ------- ------- ------- ------- -- CASE MANAGEM ENT OUTPATIENT [id number] Notes DOMINIC, 08/20 Release d w/o [facility] Abhishek SANDOVAL Limitations Dieg o(S by: Trang Case DOMINIC ManageLORI castellanos ent) D 20 Aug 2012 0804 ------- ------- ------- ------- -- CASE MANAGEM ENT OUTPATIENT [id number] Bilater SERAFINE, 01/28 Rele ased w/o Naval 2 al foot Limitations [facility] pain, [facility] hogue Naval pain Support Activit y [place] ([facility] [place]) OUTPATIENT [id number] Blood SERAFINE, 02/03 Releas ed w/o Naval 3 Pressur Limitations [facility] e eval [facility] Naval Support Activit y [place] ([facility] [place]) OUTPATIENT [id number] Sleep SERAFINE, 03/04 Releas ed w/o Naval 1 disturb Limitations [facility] ance, [facility] e req Naval for Support Sleep Activit study y [place] [facility] Outpatient [id number] WINSTON,DOMINIQUETian 10/04 [place] Encounter [id number] [facility] H[facility] History [id number] 12/12 12/12 No 94749 /2021 Facilit y Access Lifetime [id number] 12/12 Ambula t Pharmacy ory Pharmac y [...] for this section Pha rmacy Case Management, MENVIET, DoD each 15 minutes 012 LORI Costello Coordinated care DOMINIC, DoD fee, risk adjusted 012 LORI Costello maintenance Coordinated care MENELEY, DoD fee, risk adjusted 012 LORI D maintenance Case Management, MENELEY, DoD each 15 minutes 012 LORI D Coordinated care MENELE, DoD fee, risk adjusted 012 LORI D maintenance Case Management, MENELEY, DoD each 15 minutes 012 LORI D Coordinated care MENELE, DoD fee, risk adjusted 012 LORI D maintenance, Level 3 Case Management, MENELEY, DoD each 15 minutes 012 LORI D Audiometry Group Audiometry 21779 MARK ANTHONYCODYGABRIEL Audiogram DoD Testing Group Testing 012 TIFFANIE WNL ECG Performance of ECG Performance 74178 [facility], [facility] Tracing Only of Tracing Only 012 JUAN E Visual Function Visual Function 41127 [facility], [facility] Screening Screening 012 JUAN E OPHTHALMOLOGICAL [facility] SERVICES: MEDICAL 000 EXAMINATION AND EVALUATION WITH INITIATION OF DIAGNOSTIC AND TREATMENT PROGRAM; INTERMEDIATE, NEW PATIENT AUDIOMETRIC TESTING DoD OF GROUPS 000 OPHTHALMOLOGICAL DoD SERVICES: MEDICAL 000 EXAMINATION AND EVALUATION WITH INITIATION OF DIAGNOSTIC AND TREATMENT PROGRAM; INTERMEDIATE, NEW PATIENT CASE MANAGEMENT, DoD EACH 15 MINUTES 012 [...] PERIOD REASON RELATED ORIGINAL PROCEDURE SURGICAL TECHNIQUES [facility] REQUIRING USE OF 012 ROBOTIC SURGICAL SYSTEM (LIST SEPARATELY IN ADDITION TO CODE FOR PRIMARY PROCEDURE) COORDINATED CARE [facility] FEE, RISK ADJUSTED 012 MAINTENANCE, LEVEL 3 THERAPEUTIC, DoD PROPHYLACTIC, OR 022 DIAGNOSTIC INJECTION (SPECIFY SUBSTANCE OR DRUG); SUBCUTANEOUS OR INTRAMUSCULAR UNLISTED SPECIAL [facility] SERVICE, PROCEDURE 012 OR REPORT AUDIOMETRIC TESTING [...] and Plan No data available for this 06/13/2022 A mbulatory Pharmacy section Functional Status Combined list of recent functional and cognitive assessments recorded at Department of Defense and Veterans Affairs (VA).VA Functional [place] Measurement (FIM) Scale: 1 = Total Assistance (Subject = 0% +), 2 = Maximal Assistance (Subject = 25% +), 3 = Moderate Assistance (Subject = 50% +), 4 = Mi nimal Assistance (Subject = 75% +), 5 = Supervision, 6 = Modified [place] (Device), 7 = Complete [place] (Timely, Safely). Assessment Source Assessment Type Assessment Assessment Assessmen t Date/Time Skill Score Details No data available for this section
--- OUTSIDE RECORDS SUMMARY | 2022-06-13 17:43 | XMS_ITS ---
[...] Active ? Not available BD Regular Bevel Clio 18 gauge x 1 Active ? Not [...] BLDV ? Estradiol, 45.6 20.0-47.0 F inal [place] Serum Sensitive pg/mL pg/mL [facility]: [address] 05/29/2020 CBC W/ Diff BLDV ? Wbc 9.80 3.80-10.80 Coby angely [place] 10*3/uL 10*3/uL [facility]: [address] [address], [place] ? ? BLDV ? Ne% 68.60 % 42.00-82.0 Final [place] 0 % [facility]: [address] [address], [place] ? ? BLDV ? Ly% 19.00 % 15.00-35.0 Final [place] 0 % [facility]: [address] [place] [address] ? ? BLDV ? Mo% 9.00 % 4.00-12.00 Final [place] % [facility]: [address] [place] [address], [place] ? ? BLDV ? Eo% 2.80 % 1.00-6.00 Final [place] % [facility]: [address] [place] [address], [place] ? ? BLDV ? Ba% 0.60 % 0.00-2.00 Final [place] % [facility]: [address] [place] [address] ? ? BLDV ? Ne# 6.70 1.50-7.80 Final [place] 10*3/uL 10*3/uL [facility]: [address] [place] [address] ? ? BLDV ? Ly# 1.90 0.85-3.90 Final [place] 10*3/uL 10*3/uL [facility]: [address] [place] [address] ? ? BLDV ? Mo# 0.90 0.20-0.95 Final [place] 10*3/uL 10*3/uL [facility]: [address] [place] [address] ? ? BLDV ? Eo# 0.30 0.02-0.50 Final [place] 10*3/uL 10*3/uL [facility]: [address] [place] [address] ? ? BLDV ? Ba# 0.10 0.00-0.20 Final [place] 10*3/uL 10*3/uL [facility]: [address] [place] [address] ? ? BLDV ? Rbc 5.55 4.20-5.80 Final [place] 10*6/uL 10*6/uL [facility]: [address] [place] [address] ? ? BLDV High Hgb 17.40 13.20-17.1 Final [place] g/dL 0 g/dL [facility]: [address] [place] [address] ? ? BLDV High Hct 52.00 % 38.50-50.0 Final [place] 0 % [facility]: [address] [place] [address] ? ? BLDV ? Mcv 93.50 80.00-100. 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 ? BLDV ? Mch 31.40 27.00-33.0 Final [place] pg 0 pg [facility]: [address] [place] [address] ? ? BLDV ? Mchc 33.50 32.00-36.0 Final [place] g/dL 0 g/dL [facility]: [address] [place] [address] ? ? BLDV ? Rdw 13.50 % 11.00-15.0 Final [place] 0 % [facility]: [address] [place] [address] ? ? BLDV ? Plt 255.00 140.00-400 Final [place] 10*3/uL .00 Urology - 10*3/uL [facility]: [address] [place] [address] ? ? BLDV ? Mpv 9.60 fL ? Final [place] [facility]: [address] [place] [address] 05/29/2020 Prostate BLDV ? PSA, Total 0.55 0.00-4.00 Fin al [place] Specific Ag, NG/mL NG/mL [facility]rol [facility] - Serum or [facility]: [address] [place] [address] 05/29/2020 Testosterone BLDV ? Testosterone 716.87 175.00- 781 Final [place] , NG/dL .00 NG/dL Urology - Bioavailable [facility] , Serum Lab: [address] [place] [address] ? ? BLDV ? Testosterone, 20.4 9.0-30.0 Final [place] Free NG/dL NG/dL [facility]: [address] [place] [address] ? ? BLDV ? % Ftesto 2.9 % ? Final [place] [facility]: [address] [place] [address] ? ? BLDV High Testosterone, 497 40-235 Final [place] Bioavailable NG/dL NG/dL [facility]: [address] [place] [address] ? ? BLDV ? Shbg 18.6 13.3-89.5 Final [place] nmol/L nmol/L [facility]: [address] [place], [place] [address]bury ? ? BLDV ? Albumin-olymp 4.5 3.5-5.0 Final [place] g/dL g/dL [facility]: [address] [facility] [address], [place] Past Encounters None recorded. Social History Tobacco [...]
== END 2022-06-13 17:39 | disposition home or self-care (01) ==
PROVIDERS: PCP Family Medicine; Visit Provider Family Medicine
DX: M25.511 Pain in right shoulder (principal); M75.101 Unspecified rotator cuff tear or rupture of right shoulder, not specified as traumatic; M75.01 Adhesive capsulitis of right shoulder; M75.51 Bursitis of right shoulder
CPT/HCPCS: 73221

== ENCOUNTER 2022-07-28 13:00 | Emergency (ER) | payer OTHER, SELFPAY ==
[2022-07-28 13:11] VITALS: BP 145/80; PULSE 70; RESP 18; TEMP 36.4; O2SAT 96; BMI 34.2
[2022-07-28 14:07] LABS: PCR FLU A POSITIVE PCR FLU A (Negative); PCR FLU B Negative PCR FLU B (Negative); PCR RSV Negative PCR RSV (Negative); SARS PCR* Negative SARS-CoV-2 (Negative)
--- NOTE | 2022-07-28 14:11 | ED.GENADULT ---
HPI - General Adult General Date Seen: 07/28/22 Chief complaint: Unspecified Complaint, Adult Stated complaint: Cough Needs a PCR test Time Seen by Provider: 07/28/22 13:04 Source: patient History of Present Illness HPI narrative: Patient is here for COVID test. He was made aware of a last minute appointment to [place] tomorrow morning and needs a test for entry into the country. Had influenza last week. No symptoms currently Related Data Home Medications Medication Instructions Recorded Confirmed safety needles 18 gauge x 1 (Easy 06/06/22 Touch FlipLock Needle) syringe with needle, safety 3 mL 06/06/22 25 gauge x 1 (BD SafetyGlide Syringe) Previous Rx's Medication Instructions Recorded lisinopril 10 mg tablet 10 mg PO DAILY #90 tabs 04/13/22 testosterone cypionate 200 mg/mL 120 mg (0.6 mL) IM .weekly #4 mL 05/26/22 intramuscular oil Allergies Allergy/AdvReac Type Severity Reaction Status Date / Time No Known Drug Allergies Allergy Verified 03/30/22 15:30 PFSH [facility] Medical History (Updated 07/28/22 @ 14:09 by Kaci Reaves MD) Hypertension Lymph node enlargement Testicle cancer Surgical History (Updated 05/26/22 @ 13:25 by Angela Warner CMA) History of orchiectomy Family History (Updated 05/26/22 @ 13:24 by Angela Wanrer CMA) Other History of orchiectomy Social History Smoking Status: Never smoker Do you use any of these nicotine containing products: None Second hand tobacco smoke exposure: No How often do you have a drink containing alcohol: never How often do you have six or more drinks on one occasion: Never AUDIT-C Alcohol total score: 0 Non-prescribed substance use: denies use service: Yes Exam Narrative: Exam Narrative: Vital signs reviewed. Heart: Regular rate and rhythm Lungs: Clear bilaterally. No increased work of breathing. Const: Vital Signs, click to edit/add: Vital Signs - 24 hr 07/28/22 13:11 Temperature 97.6 F Pulse Rate [Right Pulse Oximeter] 70 Respiratory Rate 18 Blood Pressure [Ri ght Upper Arm] 145/80 H Pulse Oximetry 96 Oxygen Delivery Me thod Room Air Course Course Hospital Course: COVID is negative. Influenza swab remains positive. Vital Signs Vital signs: Initial Vital Signs Temperature 97.6 F 07/28/22 13:11 Temperature Source Temporal Artery Scan 07/28/22 13:11 Pulse Rate 70 07/28/22 13:11 Respiratory Rate 18 07/28/22 13:11 Blood Pressure 145/80 H 07/28/22 13:11 Blood Pressure Mean 101 07/28/22 13:11 Blood Pressure Position Sitting 07/28/22 13:11 Pulse Oximetry 96 07/28/22 13:11 Oxygen Delivery Method 07/28/22 13:11 Vital Signs Temperature 97.6 F 07/28/22 13:11 Pulse Rate 70 07/28/22 13:11 Respiratory Rate 18 07/28/22 13:11 Blood Pressure 145/80 H 07/28/22 13:11 Pulse Oximetry 96 07/28/22 13:11 Oxygen Delivery Method 07/28/22 13:11 Temperature 97.6 F 07/28/22 13:11 Pulse Rate 70 07/28/22 13:11 Respiratory Rate 18 07/28/22 13:11 Blood Pressure 145/80 H 07/28/22 13:11 Pulse Oximetry 96 07/28/22 13:11 Oxygen Delivery Method 07/28/22 13:11 Medical Decision Making Lab Data Labs: Lab Results 07/28/22 Range/Units 13:09 SARS-CoV-2 (PCR) Negative SARS-CoV-2 (Negative) Influenza Type A (PCR) POSITIVE PCR FLU A A (Negative) Influenza Type B (PCR) Negative PCR FLU B (Negative) RSV (PCR) Negative PCR RSV (Negative) Discharge Plan Discharge Clinical Impression: Encounter for laboratory testing for COVID-19 virus Patient Disposition: Home, Self-Care Condition: Stable Prescriptions: No Action lisinopril 10 mg tablet 10 mg PO DAILY Qty: 90 1RF testosterone cypionate 200 mg/mL oil 120 mg IM .weekly Qty: 4 1RF (DME) Easy Touch FlipLock Needle 18 gauge x 1 needle See Rx Instructions .ROUTE Rx Instructions: For testosterone injections (DME) BD SafetyGlide Syringe 3 mL 25 gauge x 1 syringe See Rx Instructions .ROUTE Rx Instructions: for testosterone injections Follow Up/Referrals: Jose Manuel Hernandez MD [Primary Care Provider] - Stand Alone Forms: [facility] Info Instructions
--- OUTSIDE RECORDS SUMMARY | 2022-07-28 14:25 | XMS_ITS | Clinical Summary ---
:1970 Author Organization [employer] Address [facility] 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 Plan of Treatment Health Maintenance Due Date Last Done Comments ADVANCE CARE PLANNING 1970 ANNUAL REVIEW OF HM ORDERS [address] CT COLONOGRAPHY 1972 FIT-DNA (Cologuard) 1972 FIT 1972 FLEX SIG 1970 YEARLY PREVENTIVE VISIT 1972 COVID-19 Vaccine (#1) 03/11/1973 COLONOSCOPY [...] to complete this topic HEPATITIS B IMMUNIZATION Completed 08/13/2010, 03/07/2010, 01/16/2010 MENINGITIS IMMUNIZATION Aged Out No longe r eligible based on patient 's age to complete this topic Pneumococcal Vaccine: Aged Out No longer eligible Pediatrics (0 to 5 Years) based on patient's age and At-Risk Patients (6 to to co mplete this topic 64 Years) Insurance Payer Benefit Plan Subscriber ID Effective Dates Phone Address Type / Group JANET/POLLO RODRIGUEZ [facility] [id number] 2017-Presen [phone] [address] Ind[address]ity [address] [place] [address] JANET/POLLO RODRIGUEZ [place] [id number] 2018-Presen [phone] [address] Ind[address]ity [address] [place] [address] Care Teams Hip Hop Dance Instructor Relationship Specialty Start Date End Date Clinic, Keturah Betancourt PCP - General 03/25/20 [address] [place] [address]
--- OUTSIDE RECORDS SUMMARY | 2022-07-28 14:26 | XMS_ITS | Encounter Summary ---
:1970 Author Organization [place] Address [address] [place] [address]. [place] [address] Care Team Providers Name Role Phone Unavailable Primary Care Provider Unavailable Reason for Visit Reason Onset Date Comments Walk In Clinic 10/28/2011 back pain Encounter Details Date Type Department Care Team Description 10/28/2011 Telephone [facility] None [facility] [address], [address] [place] [address] Social History Tobacco Use Types Packs/Day Years Used Date Smoking Tobacco: Never Assessed Sex Assigned at Date Recorded [...] Gordon RN Message Handled by Nurse Triage E [employer]ES [employer] documented in this encounter Plan of Treatment Not on filedocumented as of this encounter Visit Diagnoses Not on filedocumented in this encounter
--- OUTSIDE RECORDS SUMMARY | 2022-07-28 14:26 | XMS_ITS | Encounter Summary ---
:1970 Author Organization [facility] Address [address] [place] [address] Support Name Relationship Address Phone TRACY VU Unavailable [address] [place] [address] TRACY VU Unavailable [address] [place] [address] Selected Encounter This section includes the information on record at [place] for the Encounter. Date/Time Encounter Type Encounter Reason Provider Source Description Oct 04, 2021 11:58 Outpatient EMERGENCY DEPT JENNYFER MONTERO AM Encounter IHE Encounter Template Text not used by [facility] Lab Results: +/- 30 days of the encounter This section includes the Chemistry and Hematology Lab Results on record with [place] for the patient. Radiology Reports and Pathology Reports are provided separately, in subsequent sections.Lab Results This section contains the Chemistry/Hematology Results that were resulted 30 days before or 30 daysafter the date of the Encounter. Date/Time Source Result Type Result - Unit Interpretation Reference Range Comment Oct 04, 2021 [facility] COVID-19 AND FLU/RSV DIAG Sp ecimen Type: NASOPHARYNGEAL 12:03 PM PANEL(CEPHEID) Comment: Irina rodriguez GeneXpert (618) Ordering Provid er: JENNYFER MONTERO Report Released Date/Time: Oct 04, 2021 11:22 AM Reporting Lab: [facility] I [address] [id number] Performing Lab: [facility] I VE [facility] [phone] COVID-19 (CEPHEID) DETECTED HH Not Detecte d INFLUENZA A (PCR) Not Detected Not Detec louis INFLUENZA B (PCR) Not Detected Not Detec louis RSV (PCR) Not Detected Not Detected Encounter Notes: All associated encounter notes This section contains the clinical notes associated to the Encounter. Date/Time Encounter Note(s) Provider Source Oct 04, 2021 01:14 PM PHYSICIAN EMERGENCY DEPT NOTE: ZHANNA MONTERO [facility] LOCAL TITLE: EMERGENCY DEPT NOTE STANDARD TITLE: [...]
--- OUTSIDE RECORDS SUMMARY | 2022-07-28 14:26 | XMS_ITS | Encounter Summary ---
:1970 Author Organization [place] Address [facility] [place] [address] Care Team Providers Name Role Phone Clinic, Keturah Betancourt Primary Care Provider [phone] Reason for Visit Reason Comments Palpitations Fatigue Diarrhea Encounter Details Date Type Department Care Team Description 03/25/2020 Emergency [facility] Jessica Tian MD Hypertension, [facility] Emergency Dep t EMERGENCY PHYSICIANS unspecified type [address] [place], [place] [address] [facility] [address] [address] [place] [address] (Wo rk) Social History Tobacco [...] through Care Everywhere. Hypertension, New (Begin Treatment) (Maltese)documented in this encounter Medications at Time of [...] and eating healthy. He was seen at [facility] where they did an EKG prior [...] Sinus rhythm Normal ECG Rate 77 bpm. NC interval 138. QRS duration 92. QT/QTc 356/402. [...] history of hypertension. He is in the [place] and just recently returned from [facility]. He hashad no recent fevers, [...] the provider's statements to me. 03/25/2020 [facility] EMERGENCY DEPARTMENT Sathish Tian MD 03/26/20 1320 [...] Signature TSH 1.24 0.40 - 4.00 03/25/[address] [facility] mU/L 6:24 PM CDT HOSPITAL Specimen Anatomical Collection Method Collection Time Receive d Time (Source) Location / / Volume Laterality Blood specimen 03/25/2020 5:45 PM 020 5:53 (specimen) CDT PM CDT Sathish Tian MD LAB - BLOOD ORDERABLES Performing Organization Address City/State/ZIP Code Phon e Number M [facility] [address] [place] [address] [facility] [address] [place], [place] [address], [facility] [phone] Troponin I (03/25/2020 5:45 PM CDT) athologist Signature Troponin I ES <0.015 0.000 - 03/25/2020 [place] 0.045 ug/L 6:18 PM [facility] Comment: The 99th percentile for upper [...] Address City/State/ZIP Code Phon e Number [place] [address] [address] [place] [address] [facility] [address] [place] [address] [place] [address] (ABNORMAL) Comprehensive metabolic panel (03/25/2020 5:45 PM CDT) athologist Signature Sodium 136 133 - 144 03/25/2020 [place] mmol/L 6:07 PM [facility] Potassium 3.8 3.4 - 5.3 03/25/2020 [place] mmol/L 6:07 PM [facility] Chloride 102 94 - 109 03/25/2020 [place] mmol/L 6:07 PM [facility] Carbon Dioxide 29 20 - 32 03/25/2020 [place] mmol/L 6:14 PM [facility] Anion Gap 5 3 - 14 03/25/2020 [place] mmol/L 6:14 PM [facility] Glucose 93 70 - 99 03/25/2020 [place] mg/dL 6:14 PM [facility] Urea Nitrogen 16 7 - 30 03/25/2020 [place] mg/dL 6:14 PM [facility] Creatinine 1.19 0.66 - 03/25/2020 [place] 1.25 mg/dL 6:14 PM [facility] GFR Estimate 72 >60 03/25/2020 [place] mL/min/{1. 6:14 PM [facility] 73_m2} HOSPITAL Comment: Non GFR Calc Starting 09/11/2018, serum creatinine ba sed estimated GFR (eGFR) will be calculated using the Chronic Kidney Dise [employer] [facility] Epidemiology Collaboration (CKD-EPI) equation. GFR Estimate If 83 >60 mL/min/{1.73_m2} 03/25/2020 6: 14 PM [facility] Comment: GFR Calc Starting 09/11/2018, serum creatinine ba sed estimated GFR (eGFR) will be calculated using the Chronic Kidney Dise [employer] [facility] Epidemiology Collaboration (CKD-EPI) equation. Calcium 9.0 8.5 - 10.1 03/25/2020 6:14 PM [place] R IDGES mg/dL [facility] Bilirubin Total 0.5 0.2 - 1.3 mg/dL 03/25/2020 6:16 PM [facility] Albumin 4.0 3.4 - 5.0 g/dL 03/25/2020 6:16 PM [facility] Protein Total 8.0 6.8 - 8.8 g/dL 03/25/2020 6:16 PM [facility] Alkaline Phosphatase 78 40 - 150 U/L 03/25/2020 6:16 PM [facility] ALT 91 (H) 0 - 70 U/L 03/25/2020 6:16 PM [facility] AST 49 (H) 0 - 45 U/L 03/25/2020 6:16 PM [facility] Specimen Anatomical Collection Method Collection Time Receive d Time (Source) Location / / Volume Laterality Blood specimen 03/25/2020 5:45 PM 020 5:53 (specimen) T [facility] Sathish Tian MD LAB - BLOOD ORDERABLES Performing Organization Address City/State/ZIP Code Phon e Number [place] [address] [address] [address] [facility] [address] [place], [place] [address] [facility] [phone] [place] [address] [place] [address], [place] [phone] HOSPITAL CBC with platelets differential (03/25/2020 5:45 PM T) [facility] Method Time Signature WBC 10.0 4.0 - 03/25/2020 [facility] 11.0 5:59 PM [facility] 10e9/L HOSPITAL RBC Count 5.62 4.4 - 5.9 03/25/2020 [facility] 10e12/L 5:59 PM [facility] Hemoglobin 17.5 13.3 - 03/25/2020 [facility] 17.7 g/dL 5:59 PM [facility] Hematocrit 52.4 40.0 - 03/25/2020 [facility] 53.0 % 5:59 PM [facility] MCV 93 78 - 100 03/25/2020 [facility] fl 5:59 PM [facility] MCH 31.1 26.5 - 03/25/2020 [facility] 33.0 pg 5:59 PM [facility] MCHC 33.4 31.5 - 03/25/2020 [facility] 36.5 g/dL 5:59 PM [facility] RDW 12.8 10.0 - 03/25/2020 [facility] 15.0 % 5:59 PM [facility] Platelet Count 283 150 - 450 03/25/2020 [facility] 10e9/L 5:59 PM [facility] Diff Method Automated 03/25/2020 [facility] Method 5:59 PM [facility] % Neutrophils 58.6 % 03/25/2020 [facility] 5:59 PM [facility] % Lymphocytes 27.3 % 03/25/2020 [facility] 5:59 PM [facility] % Monocytes 8.1 % 03/25/2020 [facility] 5:59 PM [facility] % Eosinophils 4.4 % 03/25/2020 [facility] 5:59 PM [facility] % Basophils 0.9 % 03/25/2020 [facility] 5:59 PM [facility] % Immature 0.7 % 03/25/2020 [facility] Granulocytes 5:59 PM [facility] Nucleated RBCs 0 0 /100 03/25/2020 [facility] 5:59 PM [facility] Absolute 5.9 1.6 - 8.3 03/25/2020 [place] Neutrophil 10e9/L 5:59 PM [facility] Absolute 2.7 0.8 - 5.3 03/25/2020 [place] Lymphocytes 10e9/L 5:59 PM [facility] Absolute 0.8 0.0 - 1.3 03/25/2020 [place] Monocytes 10e9/L 5:59 PM [facility] Absolute 0.4 0.0 - 0.7 03/25/2020 [place] Eosinophils 10e9/L 5:59 PM [facility] Absolute 0.1 0.0 - 0.2 03/25/2020 [place] Basophils 10e9/L 5:59 PM [facility] Abs Immature 0.1 0 - 0.4 03/25/2020 [place] Granulocytes 10e9/L 5:59 PM [facility] Absolute 0.0 03/25/2020 [place] Nucleated RBC 5:59 PM [facility] Specimen Anatomical Collection Method Collection Time Receive d Time (Source) Location / / Volume Laterality Blood specimen 03/25/2020 5:45 PM 020 5:53 (specimen) CDT PM CDT Sathsih Tian MD LAB - BLOOD ORDERABLES Performing Organization Address City/[facility]/ZIP Code Phon e Number [place] [address] [address] [place] [address] [facility] [address] [phone] EKG 12-lead, tracing only (03/25/2020 5:36 PM CDT) [facility] gist Method Time Signature Interpretation ECG Click View RADIOLOGY Image link RESULTS to view waveform and result Specimen (Source) Anatomical Collection Method Collection Time Re ceived Time Location / / Volume Laterality 03/25/2020 5:36 PM CDT Sathish Tain MD ECG ORDERABLES Performing Organization Address City/[facility] Phon e Number RADIOLOGY RESULTS documented in this encounter Visit Diagnoses Diagnosis Hypertension, unspecified type documented in this encounter Care Teams Adoption Manager Relationship Specialty Start Date End Date Clinic, Keturah Betancourt PCP - General 03/25/20 [address] [place] [address] documented as of this encounter
--- OUTSIDE RECORDS SUMMARY | 2022-07-28 14:26 | XMS_ITS | Continuity of Care Document ---
:1970 Author Organization [facility] Care Team Providers Name Role Phone [facility] Unavailable Unavailable Problems Combined list of problems from Department of Defense and Veterans Affairs facilities. It does not include entries that were removed or entered in error. Problem Status Onset Date Problem Type Date of Comments Source Resolution Aftercare Following Inactive Condition [facility] Surgery Of Genitourinary System conditions Active Condition DoD influencing health status visit for: Active Condition DoD services physical testicular cancer Active Condition Do D Testes Mass (___cm) Active Condition DoD visit for: ears / Active Condition Do D hearing exam visit for: Active Condition [facility] occupational health / fitness exam visit for: Inactive Condition [facility] administrative purpose Medications Combined list of outpatient medications from Department of Defense and Veterans Affairs facilities. Medications provided include 1) outpatient medications from the last 15 months, and 2) patient-reported medications. Medication Details Route Status Patient Prescription Prescription Last Ordering Order Source Instructions Expires Number Dispense Provider Date Date ACETAMINOPH TAKE 1 Oral 06/05/2022 [id number] MILY MUSTAFA 05/06/ [place] EN (U/D) TO 2 2 2021 [place] 325 MG ORAL TABLETS [place] S a TAB BY MOUTH EVERY SIX HOURS NEEDED FOR PAIN/FEV ER DICLOFENAC Active [id number] [facility], 07/29 / Pharmac SODIUM 2020 y Data (DICLOFENAC Transac SODIUM), 50 tion MG, TABLET Service LUX BELLE, Facilit PACK y PHARMACEUT, 100 ea. BOTTLE DICLOFENAC Active [id number] [facility], 08/27 / Pharmac SODIUM 2020 y Data (DICLOFENAC Transac SODIUM), 50 tion MG, TABLET Service DR ORAL, Facilit PACK y PHARMACEUT, 100 ea. BOTTLE diclofenac diclofenac sodium 50 mg oral delayed release tablet Order ed Ambulat sodium 50 Start Date: 07/29/21 ory mg oral Status: Ordered Ph armac delayed y release tablet IBUPROFEN TAKE ONE Oral 06/05/2022 [id number] MILY MUSTAFA 05/06/ [place] (U/D) 600 TABLET 2 2021 [place] MG ORAL TAB BY MOUTH [place] S a EVERY 6-8 HOURS WITH FOOD NEEDED FOR PAIN LISINOPRIL Active [id number] [facility], 04/17 / Pharmac (lisinopril 2 2021 y Data ), 10 MG, Transac TABLET, tion ORAL, LUPIN Service PHARMACEU, Facilit 1000 ea. y BOTTLE lisinopril lisinopril 10 mg oral tablet Ordered Ambulat 10 mg oral Start Date: 05/13/21 ory tablet Status: Ordered Pha rmac y LUER-SHANE Active [id number] [facility], 02/20/ P harmac SYRINGE-NEE 2 2021 y Data DLE Transac (syringe tion with Service needle,disp Facilit osable, 3 y mL), 25GX1, DISP SYRIN, MISCELL, BD MEDICAL SURG, 100 ea. BOX LUER-SHANE Active [id number] [facility], 04/20/ P harmac SYRINGE-NEE 2 2021 [...] INTRAMUSC, PERRIGO/PAD AGIS, 1 ml TESTOSTERON Active [id number] [facility], 05/26/ Pharmac E CYPIONATE 2 2021 y Data (testostero Transac ne tion cypionate), Service 200 MG/ML, Facilit VIAL, y INTRAMUSC, PERRIGO/PAD AGIS, 1 ml VIAL TESTOSTERON Active [id number] [facility], 02/23/ Pharmac E CYPIONATE 2 2021 y Data (testostero Transac ne tion cypionate), Service 200 MG/ML, Facilit VIAL, y INTRAMUSC, PERRIGO/PAD AGIS, 1 ml VIAL TESTOSTERON Active [id number] [facility], 03/26/ Pharmac E CYPIONATE 2 2021 y Data (testostero Transac ne tion cypionate), Service 200 MG/ML, Facilit VIAL, y INTRAMUSC, PERRIGO/PAD AGIS, 1 ml VIAL TESTOSTERON Active [id number] [facility], 08/27/ Pharmac E CYPIONATE 1 2020 y Data (testostero Transac ne tion cypionate), Service 200 MG/ML, Facilit VIAL, y INTRAMUSC, PERRIGO/PAD AGIS, 1 ml VIAL TESTOSTERON Active [id number] [facility], 08/27/ Pharmac E CYPIONATE 1 2020 y Data (testostero Transac ne tion cypionate), Service 200 MG/ML, Facilit VIAL, y INTRAMUSC, PERRIGO/PAD AGIS, 1 ml VIAL TESTOSTERON Active [id number] [facility], / Pharmac E CYPIONATE 2 2021 y Data (testostero Transac ne tion cypionate), Service 200 MG/ML, Facilit VIAL, y INTRAMUSC, PERRIGO/PAD AGIS, 1 ml VIAL TESTOSTERON Active [id number] [facility], 11/24/ Pharmac E CYPIONATE 2 2021 [...] SUN PHARMACEUTI , 1 ml TESTOSTERON Active [id number] [facility], 08/14 / Pharmac E CYPIONATE 1 [...] atus Comments Source Given By Number Code Veterinary Pathologist influenza, 158 GlaxoSmithKli comple t influenza, injectable, [...] complet season al DoD influenza, 2012 Pasteur ([facility]) ed i nfluenza intradermal, , preservative intrade [...] free e, preservat elizabeth free influenza 111 MediTraxer[employer] Inc complet influenza virus vaccine, live Ambulat virus 2010 ed 06/12/11 ory vaccine, live Given Pharmac y influenza 0 111 MedImmune, complet in fluenza DoD virus 2010 Inc. (MED) ed virus vaccine, vaccine, live, live, attenuated, attenuat e for d, for intranasal intranasa use l use influenza [id number] 111 [employer] compl et influenza virus vaccine, live Ambulat virus 2009 ed 08/13/10 ory vaccine, live Given Pharmac y hepatitis [id number] 104 Haozu.comKli compl et hepatitis A-hepatitis B vaccine Ambulat A-hepatitis B 2009 6BB ne ed ory vaccine Given Pharma c y hepatitis A 3 AHABB17 104 SmithKline comple t hepatitis DoD and hepatitis 2009 6BB (SKB) ed A and B vaccine hepatitis B vaccine influenza 0 [id number] 111 MedImmune, complet influenza DoD virus 2010 [...] and B vaccine hepatitis B vaccine tetanus, [id number] 115 GlaxoSmithKli comple t tetanus, diphtheria, acellular pertussis Ambulat diphtheria, 2009 6BA ne ed 01/16/10 ory acellular Given Phar mac pertu is y hepatitis BB17 104 GlaxoSmithKli compl et hepatitis A-hepatitis B vaccine Ambulat A-hepatitis B 2009 4AA ne ed 0 ory vaccine Given Pharma c y poliovirus B0476 10 SetJamune Inc comple t poliovirus vaccine, inactivated Ambulat [...] vaccine virus vaccine poliovirus 0 B0476 10 JDP Therapeuticsune, complet p olioviru DoD vaccine, 2010 Inc. (MED) ed s inactivated vaccine, inactivat ed hepatitis A 1 AHABB17 104 SmithKline comple t hepatitis DoD and hepatitis 2009 4AA (SKB) ed A and B vaccine hepatitis B vaccine tetanus 0 01/16/ HB48F54 115 SmithKline complet te tanus DoD toxoid, [...] AND D /2021 Comment: Cephei d GeneXpert (772) IS [place] iSSimple FLU/RS CORONAVIRUS Ordering Pr ovider: JENNYFER MONTERO RNA Report Released Date/Time: Oct 04, 2021 11:22 AM PANEL( [PRESENCE] Reporting La b: [facility] iSSimple CEPHEI IN [address] [facility] [id number] D) RESPIRATORY Performing Lab: [facility] SPECIMEN BY ONE [facility] [phone] [place] WITH PROBE DETECTION COVID- INFLUENZA Not 10/04 Specimen Type: NASOPHARYNGEAL [place] 19 AND VIRUS A RNA Detected /2021 Comment: Jamie [employer]d MusicplayrXpert (085) IS [place] iSSimple FLU/RS [PRESENCE] Ordering Pro vider: JENNYFER MONTERO IN UPPER Report Release d Date/Time: Oct 04, 2021 11:22 AM PANEL( RESPIRATORY Reporting L ab: [facility] CEPHEI SPECIMEN BY ONE [facility] [id number] D) LUCR[place]IA WITH Performing Lab : [facility] PROBE [address] [facility] [phone] DETECTION COVID- INFLUENZA Not 10/04 Specimen Type: NASOPHARYNGEAL [place] 19 AND VIRUS B RNA Detected /2021 Comment: C SuppreMoleid GeneXpert (342) IS [place] iSSimple FLU/RS [PRESENCE] Ordering Pro vider: JENNYFER MONTERO IN UPPER Report Release d Date/Time: Oct 04, 2021 11:22 AM PANEL( RESPIRATORY Reporting L ab: [facility] CEPHEI SPECIMEN BY ONE S [facility] [phone] D) [place]IA WITH Performing Lab : [facility] PROBE [address] [facility] [phone] DETECTION COVID- RESPIRATORY Not 10/04 Specimen Typ e: NASOPHARYNGEAL [place] 19 AND SYNCYTIAL Detected /2021 Comment: Cep heid GeneXpert (618) IS [facility] FLU/RS VIRUS RNA Ordering Prov ider: JENNYFER MONTERO [PRESENCE] Report Relea sed Date/Time: Oct 04, 2021 11:22 AM PANEL( IN UPPER Reporting Lab: [facility] CEPHEI RESPIRATORY ONE [employer] [facility] [phone] D) SPECIMEN BY Performing Lab: [facility] LUCRECIA WITH [address] [facility] [phone] PROBE DETECTION Vital Signs Combined list of [...] Number For Provider Date Date Visit OUTPATIENT [id number] Sebastián LOVELACE, 04/03 Releas ed w/o NH t JUAN Limitations Dougie a([facility]up [facility] [place]) OUTPATIENT [id number] Audiogr JOCODY, 04/03 Released w/o [place] am Limitations Dougie TIFFANIE a([facility] ng [facility] [place] OUTPATIENT [id number] sebastián HUFFMAN, 04/09 Rele ased w/o NH jordana MUNOZ Limitations Dougie physica a([facility] [id number] [place]) OUTPATIENT [id number] Notes BRANDON 04/18 Admit louis ANGELES Weinstein Dougie by: pasha([facility]restes [facility] ) 18 Apr 2012 0934 ------- ------- ------- ------- -- Testicu lar [facility] TELE [id number] Notes ARMIDA, 04/19 [place] CONSULT Entered Dougie by: pasha(Kadi turner Olegario CastellanosTAMMY - [place]) Mar 2012 0842 ------- ------- ------- ------- -- F/u on OUTPATIENT [id number] Notes BRANDON 04/26 Relea sed w/o [place] Entered , Limitations Geronimo wise by: pasha([facility] ) 26 Apr 2012 1150 ------- ------- ------- ------- -- post op and lab work follow up OUTPATIENT [id number] Notes BRANDON 05/02 Relea sed w/o [place] Entered , Limitations Geronimo wise by: pasha([facility] ) 02 May 2012 1359 ------- ------- ------- ------- -- follow up OUTPATIENT [id number] PATIENT TAMMY OLSON 06/04 Rel eased w/o [facility] Weiss ODIN Limitations Louis([facility]) OUTPATIENT [id number] Anila ALFARO 06/04 Release d w/o [facility] Abhishek Costello Limitations Charisse stallwroth(S by: LORI Christensen ent) D 04 Jun 2012 1356 ------- ------- ------- ------- -- CASE DANNIE ENT OUTPATIENT [id number] Notes BRANDON 06/05 Relea sed w/o [place] Weiss Entered , Limitations Mohini hinojosao(S by: JAENLLE FAULKNER Urology LARRY 11 ) May 2012 0854 ------- ------- ------- ------- -- W/I pre-op DIRECT [id number] SEN, 06/07 06/12 RETURN ED TO [facility] 7 ABBY S /2011 DUTY Louis MTF FROM OTHER THAN ER OR APU TELE [id number] Anila ALLISON, 06/12 Referred fo r [facility] Weiss CONSULT Entered PAPI C Appointment Louis(S by: Trang BERGER Urology Y,VETO ) RE C 12 Jun 2012 1623 ------- ------- ------- ------- -- Postop call back OUTPATIENT [id number] post op BRANDON 06/18 Rel eased w/o [facility] follow- , ANGELES Limitations Di ego(S up/Lap D RPLND Urology Robotic ) Surgery OUTPATIENT [id number] Notes BRANDON 07/05 Relea sed w/o [facility] Entered ANGELES Limitations Di ego(S by: JANELLE FAULKNER Urology LARRY 11 ) Jun 2012 1041 ------- ------- ------- ------- -- F/u w/i OUTPATIENT [id number] Anila ALFARO, 07/13 Release d w/o [facility] Weiss Entered LORI Limitations Charisse stallworth(S by: LORI Christensen ent) D 13 Jul 2012 1354 ------- ------- ------- ------- -- CASE MANAGEM ENT TELE [id number] Anila BARKSDALE 08/03 [facility] Sa n CONSULT Entered NIMA Louis (S by: Trang BARKSDALE Urology ,LORRAINE ) LY L 02 Aug 20121956 ------- ------- ------- ------- -- Fit for duty TELE [id number] TAMMY OLSON 08/03 [facility] Weiss CONSULT Louis(M ed Hold [facility]) OUTPATIENT [id number] Anila ALFARO, 08/10 Release d w/o [facility] Weiss Entered LORI Limitations Charisse o(S by: Trang Jovel ,LORI ent) D 10 Aug 2012 1117 ------- ------- ------- ------- -- CASE MANAGEM ENT OUTPATIENT [id number] Notes DOMINIC, 08/20 Release d w/o [facility] Abhishek SANDOVAL Limitations Dieg o(S by: Trang Case DOMINIC ManageLORI castellanos ent) D 20 Aug 2012 0804 ------- ------- ------- ------- -- CASE MANAGEM ENT OUTPATIENT [id number] Bilater SERAFINE, 01/28 Rele ased w/o Naval 2 al foot Limitations [facility] pain, [facility] hogue Naval pain Support Activit y [place] ([facility] [place]) OUTPATIENT [id number] Blood SERAFINE, 02/03 Releas ed w/o Naval 3 Pressur Limitations [facility] e eval [facility] Naval Support Activit y [place] ([facility] [place]) OUTPATIENT [id number] Sleep SERAFINE, 03/04 Releas ed w/o Naval 1 disturb Limitations [facility] ance, [facility] e req Naval for Support Sleep Activit [facility] [place] [facility] [id number] WINSTON,DOMINIQUETian 10/04 [place] Encounter [id number] [facility] History [id number] 12/12 12/12 No 07469 /2021 Facilit y Access Lifetime [id number] 12/12 Ambula t Pharmacy ory Pharmac y [...] minutes 012 LORI D [facility]ometry Group Audiometry 85506 MARK ANTHONYCODYGABRIEL Audiogram DoD Testing Group Testing 012 TIFFANIE WNL ECG Performance of ECG Performance 08266 [facility], [facility] Tracing Only of Tracing Only 012 JUAN E Visual Function Visual Function 53238 [facility], [facility] Screening Screening 012 JUAN E CASE MANAGEMENT, DoD EACH 15 MINUTES 012 [...] PERIOD REASON RELATED ORIGINAL PROCEDURE SURGICAL TECHNIQUES DoD REQUIRING USE OF 012 ROBOTIC SURGICAL SYSTEM (LIST SEPARATELY IN ADDITION TO CODE FOR PRIMARY PROCEDURE) COORDINATED CARE DoD FEE, RISK ADJUSTED 012 MAINTENANCE, LEVEL 3 OPHTHALMOLOGICAL DoD SERVICES: MEDICAL 000 EXAMINATION AND EVALUATION WITH INITIATION OF DIAGNOSTIC AND TREATMENT PROGRAM; INTERMEDIATE, NEW PATIENT AUDIOMETRIC TESTING DoD OF GROUPS 000 OPHTHALMOLOGICAL [facility] SERVICES: MEDICAL 000 EXAMINATION AND EVALUATION WITH INITIATION OF DIAGNOSTIC AND TREATMENT PROGRAM; INTERMEDIATE, NEW PATIENT THERAPEUTIC, [facility] PROPHYLACTIC, OR 022 DIAGNOSTIC INJECTION (SPECIFY SUBSTANCE OR DRUG); SUBCUTANEOUS OR INTRAMUSCULAR UNLISTED SPECIAL [facility] SERVICE, PROCEDURE 012 OR REPORT AUDIOMETRIC TESTING DoD OF GROUPS 012 ELECTROCARDIOGRAM, D oD ROUTINE ECG WITH AT 012 LEAST 12 LEADS; TRACING ONLY, WITHOUT INTERPRETATION AND REPORT Social History Combined list of available smoking, tobacco, and other social history from Department of Defense andVeterans Affairs facilities. Social History Type Response Date Comment Source This section is an empty social history section. [facility] Assessment and Plan Combined list of future care activities from Department of Defense and Veterans Affairs facilities (e.g., assessment and plan notes, appointments, orders, and referrals). Additional future care activities may be listed in the Plan of Care section. Result Assessment and Plan Date Source Assessment and Plan No data available for this 07/28/2022 [facility] section Functional Status Combined list of recent functional and cognitive assessments recorded at Department of Defense and Veterans Affairs (VA).VA Functional [place] Measurement (FIM) Scale: 1 = Total Assistance (Subject = 0% +), 2 = Maximal Assistance (Subject = 25% +), 3 = Moderate Assistance (Subject = 50% +), 4 = Mi nimal Assistance (Subject = 75% +), 5 = Supervision, 6 = Modified [place] (Device), 7 = Complete [place] (Timely, Safely). Assessment Source Assessment Type Assessment Assessment Assessmen t Date/Time Skill Score Details No data available for this section
--- OUTSIDE RECORDS SUMMARY | 2022-07-28 14:26 | XMS_ITS | Encounter Summary ---
:1970 Author Organization [place] Address [facility] [place] [address] Care Team Providers Name Role Phone [facility], Keturah Betancourt Primary Care Provider [phone] Encounter Details Date Type Department Care [...] on filedocumented in this encounter Care Teams Crisis Manager Relationship Specialty Start Date End Date Clinic, Keturah Betancourt PCP - General 03/25/20 [address] [place] [address] documented as of this encounter
--- OUTSIDE RECORDS SUMMARY | 2022-07-28 14:26 | XMS_ITS | Encounter Summary ---
:1970 Author Organization [place] Address [facility] [place] [address] Care Team Providers Name Role Phone Unavailable Primary Care Provider Unavailable Reason for Visit Reason Comments Pharyngitis Encounter Details Date Type Department Care Team Description 11/03/2018 Emergency [facility] Solomon Barnes MD Pharyngitis, [facility] Emergency Dep t EMERGENCY PHYSICIANS unspecified etiology [address] [place], [place] [address] [facility] [address] [place] [address] [phone] (Wo rk) Social History Tobacco Use Types Packs/Day Years Used Date Smoking Tobacco: Never Smokeless Tobacco: Never Alcohol Use Standard Drinks/Week Comments Yes 0 (1 standard drink = 0.6 oz pure alcoho l) socially Sex Assigned at Date Recorded Not on file documented as of this encounter Last Filed Vital Signs Vital Sign Reading Time Taken Comments Blood Pressure 138/92 11/03/2018 5:26 AM CONTRACT ADMIN Pulse 87 11/03/2018 5:26 AM CONTRACT ADMIN Temperature 36.9 ??C (98.5 ??F) 11/03/2018 4:33 AM CONTRACT ADMIN Respiratory Rate 20 11/03/2018 5:26 AM CONTRACT ADMIN Oxygen Saturation 99% 11/03/2018 5:26 AM CONTRACT ADMIN Inhaled Oxygen Concentration - - Weight 111.1 kg (245 lb) 11/03/2018 4:33 AM CONTRACT ADMIN Height 180.3 cm (5' 11) 11/03/2018 4:33 AM CONTRACT ADMIN Body Mass Index 34.17 11/03/2018 4:33 AM CONTRACT ADMIN documented in this encounter Discharge Instructions AttachmentsThe following attachments cannot be sent through Care Everywhere. PHARYNGITIS, REPORT PENDING ([place])documented in this encounter Medications at Time of [...] no fever, c/o fatigue. C/o sinus congestion. [facility]ACT ADMIN Solomon Barnes MD - 11/03/2018 4:26 AM [...] Decadron 10 mg, PO Emergency Department Course: 439 Nursing notes and vitals reviewed. I performed [...] provider's statements to me. Arnaud Gold 11/03/2018 [facility] EMERGENCY DEPARTMENT Solomon Barnes MD 11/03/18 0618 RACT ADMIN documented in this encounter Miscellaneous Notes Result Encounter Note - Cornelio Jansen RN - 11/03/2018 5:27 AM CST Final Beta strep group A r/o culture is NEGATIVE for Group A streptococcus. No treatment or change in treatment per [place] Strep protocol. RACT ADMIN documented in this encounter Plan of Treatment Not on filedocumented as of this encounter Procedures Procedure Name Priority Date/Time Associated Diagnosis Comme nts RAPID STREP SCREEN STAT 11/03/2018 4:52 AM Res ults for this THROAT SWAB CONTRACT ADMIN procedure are i n the results section. BETA HEMOLYTIC Routine 11/03/2018 4:52 AM Pharyngitis, Results for this STREP GROUP A CONTRACT ADMIN unspecified etiology proced ure are in CULTURE the results section. documented in this encounter Results Beta strep group A culture (11/03/2018 4:52 AM CONTRACT ADMIN) Component Value Ref Test Analysis Performed At [facility] Range Method Time Signature Specimen Throat INFECTIOUS Description DISEASE DIAGNOSTIC LABORATORY Special Specimen 11/03/2018 [facility] collected in 11:49 AM [place] [facility] eSwab transport [facility] (white cap) BANK Culture Micro No Beta 11/05/2018 INFECTIOUS Streptococcus 6:16 AM CONTRACT ADMIN DISEASE isolated DIAGNOSTIC LABORATORY Specimen Anatomical Collection Method Collection Time Receive d Time (Source) Location / / Volume Laterality Specimen from 11/03/2018 4:52 AM 11/03/19 19 5:07 throat CONTRACT ADMIN AM CONTRACT ADMIN (specimen) Solomon Barnes MD LAB - MICRO GENERAL ORDERABL ES Performing Organization Address City/State/ZIP Code Phon e Number INFECTIOUS DISEASES [address] [place] [address] DIAGNOSTIC LABORATORY, [facility] INFECTIOUS DISEASE [address] [place] [address], [facility] DIAGNOSTIC LABORATORY [address] [address], [facility] Rapid strep screen (11/03/2018 4:52 AM CONTRACT ADMIN) Component Value Ref Test Analysis Performed At [facility] Range Method Time Signature Specimen Throat [facility] Rapid Strep A NEGATIVE: No 11/03/2018 [place] Screen Group A 5:06 AM CONTRACT ADMIN [facility] streptococcal [facility] antigen detected by immunoassay, await culture report. Specimen Anatomical Collection Method Collection Time Receive d Time (Source) Location / / Volume Laterality Specimen from 11/03/2018 4:52 AM 11/03/19 19 4:56 throat CONTRACT ADMIN AM CONTRACT ADMIN (specimen) Solomon Barnes MD LAB - MICRO GENERAL ORDERABL ES Performing Organization Address City/[facility]/ZIP Code Phon e Number [place] [address] [place] [address] [phone] documented in this encounter Visit Diagnoses Diagnosis Pharyngitis, unspecified etiology documented in this encounter Administered Medications Inactive Administered Medications - up to 3 most recent administrations Medication Order MAR Action Action Date Dose Rate Site dexamethasone (DECADRON) tablet 10 Given 11/03/2018 4:52 AM CONTRACT ADMIN 10 mg mg 10 mg, Oral, ONCE, On 11/03/18 at 0446, For 1 dose documented in this encounter Active and Recently Administered Medications Times are shown in CONTRACT ADMIN. Scheduled Medication Order 11/01/2018 11/02/2018 11/03/2018 dexamethasone (DECADRON) tablet 10 mg (COMPLETED) 0452 (Given - Provider: Susannah Lobo RN) 10 mg, Oral, ONCE, 11/03/18 at 0446, For 1 dose documented in this encounter
--- OUTSIDE RECORDS SUMMARY | 2022-07-28 14:26 | XMS_ITS | Encounter Summary ---
:1970 Author Organization [place] Address [address] [place] [address] Care Team Providers Name Role Phone Unavailable [...]
--- OUTSIDE RECORDS SUMMARY | 2022-07-28 14:28 | XMS_ITS ---
:1970 Author Care Team Providers Name Role Phone Odell Lopez Primary Care Provider Unavailable Allergies None recorded. Medications Name Status Start Date Stop Date ? ? BD Insulin Syringe 1 mL 25 x 1 Active ? Not available BD Luer-Lit Syringe 3 mL 21 gauge x 1 1/2 Active ? Not available BD Luer-Lit Syringe 3 mL 22 x 1 1/2 Active ? Not available BD Luer-Lit Syringe 3 mL 25 gauge x 1 Active ? Not available USE DIRECTED BD Regular [facility] 18 gauge x 1 Active ? Not available USE DIRECTED diclofenac sodium 75 mg tablet,delayed release Active [...] by ? 09/25/2001 Wrist Arthroscopy Information not wilfred lombardo Notes: 09/25/2001 - WRIST ARTHROSCOPY Results Lab Results Date Name Specimen Result Interpretation Description Value Range Status Address ? 05/29/2020 Estradiol, BLDV ? Estradiol, 45.6 20.0-47.0 F inal [place] Serum Sensitive pg/mL pg/mL [facility]: [address] 05/29/2020 CBC W/ Diff BLDV ? Wbc 9.80 3.80-10.80 Coby l [place] 10*3/uL 10*3/uL [facility]: [address] [facility], [place] ? ? BLDV ? Ne% 68.60 % 42.00-82.0 Final [place] 0 % [facility]: [address] ? ? BLDV ? Ly% 19.00 % 15.00-35.0 Final [place] 0 % [facility]: [address] [place] [address], [place] ? ? BLDV ? Mo% 9.00 % 4.00-12.00 Final [place] % [facility]: [address] [place] [address], [place] ? ? BLDV ? Eo% 2.80 % 1.00-6.00 Final [place] % [facility]: [address] [place] [address] ? ? BLDV ? Ba% 0.60 % 0.00-2.00 Final [place] % [facility]: [address] [place] [address] ? ? BLDV ? Ne# 6.70 1.50-7.80 Final [place] 10*3/uL 10*3/uL [facility]: [address] [place] [address] ? ? BLDV ? Ly# 1.90 0.85-3.90 Final [place] 10*3/uL 10*3/uL [facility]: [address] [place] [address] ? ? BLDV ? Mo# 0.90 0.20-0.95 Final [place] 10*3/uL 10*3/uL [facility]: [address] [place] [address] ? ? BLDV ? Eo# 0.30 0.02-0.50 Final [place] 10*3/uL 10*3/uL [facility]: [address] [place] [address] ? ? BLDV ? Ba# 0.10 0.00-0.20 Final [place] 10*3/uL 10*3/uL [facility]: [address] [place] [address] ? ? BLDV ? Rbc 5.55 4.20-5.80 Final [place] 10*6/uL 10*6/uL [facility]: [address] [place] [address] ? ? BLDV High Hgb 17.40 13.20-17.1 Final [place] g/dL 0 g/dL [facility]: [address] [place] [address] ? ? BLDV High Hct 52.00 % 38.50-50.0 Final [place] 0 % [facility]: [address] [address], [place] ? ? BLDV ? Mcv 93.50 80.00-100. Final [place] rotational moulding operator fL 00 fL [facility]: [address] [address], [place] ? ? BLDV ? Mch 31.40 27.00-33.0 Final [place] pg 0 pg [facility]: [address] [address], [place] ? ? BLDV ? Mchc 33.50 32.00-36.0 Final [place] rotational moulding operator g/dL 0 g/dL [facility]: [address] ? ? BLDV ? Rdw 13.50 % 11.00-15.0 Final [place] 0 % [facility]: [address] ? ? BLDV ? Plt 255.00 140.00-400 Final [place] rotational moulding operator 10*3/uL .00 Urology - 10*3/uL [facility]: [address] [place] [address] ? ? BLDV ? Mpv 9.60 fL ? Final [place] [facility]: [address] [place] [address] 05/29/2020 Prostate BLDV ? PSA, Total 0.55 0.00-4.00 Fin al [place] Specific Ag, NG/mL NG/mL Urol [facility]gy - Serum or [facility]: [address] [place] [address] 05/29/2020 Testosterone BLDV ? Testosterone 716.87 175.00- 781 Final [place] , NG/dL .00 NG/dL Urology - Bioavailable [place] [place] , Serum Lab: [address] [place] [address] ? ? BLDV ? Testosterone, 20.4 9.0-30.0 Final [place] Free NG/dL NG/dL [facility]: [address] [place] [address] ? ? BLDV ? % Ftesto 2.9 % ? Final [place] [facility]: [address] ? ? BLDV High Testosterone, 497 40-235 Final [place] Bioavailable NG/dL NG/dL [facility]rol [facility]: [address] [place] [address] ? ? BLDV ? Shbg 18.6 13.3-89.5 Final [place] nmol/L nmol/L [facility]: [address] [facility] 200, [place] ? ? BLDV ? Albumin-olymp 4.5 3.5-5.0 Final [place] g/dL g/dL [facility]: [address] [facility] 200, [place] Past Encounters None recorded. Social History Tobacco [...]
== END 2022-07-28 14:22 | disposition home or self-care (01) ==
LOC: ED 14:18
PROVIDERS: Emergency Provider Emergency Medicine; PCP Family Medicine
DX: Z20.822 Contact with and (suspected) exposure to COVID-19 (principal)
CPT/HCPCS: 87502; 87634; 87635; 99281; 99282

== ENCOUNTER 2022-08-29 11:10 | Outpatient (CLI) | payer OTHER, SELFPAY ==
--- OUTSIDE RECORDS SUMMARY | 2022-08-29 08:10 | XMS_ITS | Encounter Summary ---
:1970 Author Organization [facility] Address [address] [place] [address] Support Name Relationship Address Phone TRACY VU Unavailable [address] [place] [address] TRACY VU Unavailable [address] [place] [address] Selected Encounter This section includes the information on record at [place] for the Encounter. Date/Time Encounter Type Encounter Reason Provider Source Description Oct 04, 2021 11:58 Outpatient EMERGENCY DEPT JENNYFER MONTERO AM Encounter IHE Encounter Template Text not used by [facility] Lab Results: +/- 30 days of the encounter This section includes the Chemistry and Hematology Lab Results on record with [place] for the patient. Radiology Reports and Pathology Reports are provided separately, in subsequent sections.Lab Results This section contains the Chemistry/Hematology Results that were resulted 30 days before or 30 daysafter the date of the Encounter. Date/Time Source Result Type Result - Unit Interpretation Reference Range Comment Oct 04, 2021 [facility] COVID-19 AND FLU/RSV DIAG Sp ecimen Type: NASOPHARYNGEAL 12:03 PM PANEL(CEPHEID) Comment: Irina rodriguez GeneXpert (618) Ordering Provid er: JENNYFER MONTERO Report Released Date/Time: Oct 04, 2021 11:22 AM Reporting Lab: [facility] [address] Performing Lab: [facility] [id number] COVID-19 (CEPHEID) DETECTED HH Not Detecte d INFLUENZA A (PCR) Not Detected Not Detec louis INFLUENZA B (PCR) Not Detected Not Detec louis RSV (PCR) Not Detected Not Detected Encounter Notes: All associated encounter notes This section contains the clinical notes associated to the Encounter. Date/Time Encounter Note(s) Provider Source Oct 04, 2021 01:14 PM PHYSICIAN EMERGENCY DEPT NOTE: ZHANNA MONTERO [facility] LOCAL TITLE: EMERGENCY DEPT NOTE STANDARD [...]
--- OUTSIDE RECORDS SUMMARY | 2022-08-29 08:10 | XMS_ITS | Continuity of Care Document ---
:1970 Author Organization [facility] Care Team Providers Name Role Phone [facility] Unavailable Unavailable Problems Combined list of problems from Department of Defense and Veterans Affairs facilities. It does not include entries that were removed or entered in error. Problem Status Onset Date Problem Type Date of Comments Source Resolution Aftercare Following Inactive Condition [facility] Surgery Of Genitourinary System conditions Active Condition DoD influencing health status visit for: Active Condition DoD services physical testicular cancer Active Condition Do D Testes Mass (___cm) Active Condition DoD visit for: ears / Active Condition Do D hearing exam visit for: Active Condition [facility] occupational health / fitness exam visit for: Inactive Condition [facility] administrative purpose Medications Combined list of outpatient medications from Department of Defense and Veterans Affairs facilities. Medications provided include 1) outpatient medications from the last 15 months, and 2) patient-reported medications. Medication Details Route Status Patient Prescription Prescription Last Ordering Order Source Instructions Expires Number Dispense Provider Date Date ACETAMINOPH TAKE 1 Oral 06/05/2022 [id number] MILY MUSTAFA 05/06/ [place] EN (U/D) TO 2 2 2021 [place] 325 MG ORAL TABLETS LUCR[place]IA S a TAB BY MOUTH EVERY SIX HOURS NEEDED FOR PAIN/FEV ER DICLOFENAC Active [id number] FELLAND, 07/29 / Pharmac SODIUM 2020 y Data (DICLOFENAC Transac SODIUM), 50 tion MG, TABLET Service LUX BELLE, Facilit PACK y PHARMACEUT, 100 ea. BOTTLE DICLOFENAC Active [id number] FELLAND, 08/27 / Pharmac SODIUM 2020 y Data (DICLOFENAC Transac SODIUM), 50 tion MG, TABLET Service DR ORAL, Facilit PACK y PHARMACEUT, 100 ea. BOTTLE diclofenac diclofenac sodium 50 mg oral delayed release tablet Order ed Ambulat sodium 50 Start Date: 07/29/21 ory mg oral Status: Ordered Ph armac delayed y release tablet IBUPROFEN TAKE ONE Oral 06/05/2022 [id number] MILY MUSTAFA 05/06/ [place] (U/D) 600 TABLET 2 2021 [place] MG ORAL TAB BY MOUTH LUCRECIA S a EVERY 6-8 HOURS WITH FOOD NEEDED FOR PAIN LISINOPRIL Active [id number] FELLAND, 04/17 / Pharmac (lisinopril 2 2021 y Data ), 10 MG, Transac TABLET, tion ORAL, LUPIN Service PHARMACEU, Facilit 1000 ea. y BOTTLE lisinopril lisinopril 10 mg oral tablet Ordered Ambulat 10 mg oral Start Date: 05/13/21 ory tablet Status: Ordered Pha rmac y LUER-SHANE Active [id number] [facility], 02/20/ P harmac SYRINGE-NEE 2 2021 y Data DLE Transac (syringe tion with Service needle,disp Facilit osable, 3 y mL), 25GX1, DISP SYRIN, MISCELL, BD MEDICAL SURG, 100 ea. BOX LUER-SHANE Active [id number] [facility], 04/20/ P harmac SYRINGE-NEE 2 2021 [...] INTRAMUSC, PERRIGO/PAD AGIS, 1 ml TESTOSTERON Active [id number] FELLAND, 05/26/ Pharmac E CYPIONATE 2 2021 y Data (testostero Transac ne tion cypionate), Service 200 MG/ML, Facilit VIAL, y INTRAMUSC, PERRIGO/PAD AGIS, 1 ml VIAL TESTOSTERON Active [id number] FELLAND, 02/23/ Pharmac E CYPIONATE 2 2021 y Data (testostero Transac ne tion cypionate), Service 200 MG/ML, Facilit VIAL, y INTRAMUSC, PERRIGO/PAD AGIS, 1 ml VIAL TESTOSTERON Active [id number] FELLAND, 03/26/ Pharmac E CYPIONATE 2 2021 y Data (testostero Transac ne tion cypionate), Service 200 MG/ML, Facilit VIAL, y INTRAMUSC, PERRIGO/PAD AGIS, 1 ml VIAL TESTOSTERON Active [id number] FELLAND, 08/27/ Pharmac E CYPIONATE 1 2020 y Data (testostero Transac ne tion cypionate), Service 200 MG/ML, Facilit VIAL, y INTRAMUSC, PERRIGO/PAD AGIS, 1 ml VIAL TESTOSTERON Active [id number] FELLAND, 08/27/ Pharmac E CYPIONATE 1 2020 y Data (testostero Transac ne tion cypionate), Service 200 MG/ML, Facilit VIAL, y INTRAMUSC, PERRIGO/PAD AGIS, 1 ml VIAL TESTOSTERON Active [id number] FELLAND, / Pharmac E CYPIONATE 2 2021 y Data (testostero Transac ne tion cypionate), Service 200 MG/ML, Facilit VIAL, y INTRAMUSC, PERRIGO/PAD AGIS, 1 ml VIAL TESTOSTERON Active [id number] FELLAND, 11/24/ Pharmac E CYPIONATE 2 2021 [...] SUN PHARMACEUTI , 1 ml TESTOSTERON Active [id number] FELLAND, 08/14 / Pharmac E CYPIONATE 1 [...] type Reported No Known Drug Drug active [place] Allergies allergy allergy 2 [place] Immunizations Combined list of available immunizations from the Department of Defense and Veterans Affairs facilities. Immunization Series Date Administered Site Reaction Lot CVX Drug St atus Comments Source Given By Number Code Parboiler influenza, 158 GlaxoSmithKli comple t influenza, injectable, [...] free e, preservat elizabeth free influenza 111 MediAoxing Pharm[employer] Inc complet influenza virus vaccine, live Ambulat virus 2010 ed 06/12/11 ory vaccine, live Given Pharmac y influenza 0 111 MedImmune, complet in fluenza DoD virus 2010 Inc. (MED) ed virus vaccine, vaccine, live, live, attenuated, attenuat e for d, for intranasal intranasa use l use influenza [id number] 111 NextIO Inc compl et influenza virus vaccine, live Ambulat virus 2009 ed 08/13/10 ory vaccine, live Given Pharmac y hepatitis [id number] 104 YPlanKli compl et hepatitis A-hepatitis B vaccine Ambulat A-hepatitis B 2009 6BB ne ed ory vaccine Given Pharma c y hepatitis A 3 [id number] 104 SmithKline comple t hepatitis DoD and hepatitis 2009 6BB (SKB) ed A and B vaccine hepatitis B vaccine influenza 0 [id number] 111 MedImmune, complet influenza DoD virus 2010 [...] and B vaccine hepatitis B vaccine tetanus, [id number] 115 GlaxoSmithKli comple t tetanus, diphtheria, acellular pertussis Ambulat diphtheria, 2009 6BA ne ed 01/16/10 ory acellular Given Phar mac pertu is y hepatitis BB17 104 GlaxoSmithKli compl et hepatitis A-hepatitis B vaccine Ambulat A-hepatitis B 2009 4AA ne ed 0 ory vaccine Given Pharma c y poliovirus B0476 10 Airborne Technologyune Inc comple t poliovirus vaccine, inactivated Ambulat [...] vaccine virus vaccine poliovirus 0 B0476 10 Sapiensune, complet p olioviru DoD vaccine, 2010 Inc. (MED) ed s inactivated vaccine, inactivat ed hepatitis A 1 AHABB17 104 SmithKline comple t hepatitis DoD and hepatitis 2009 4AA (SKB) ed A and B vaccine hepatitis B vaccine tetanus 0 01/16/ [id number] 115 SmithKline complet te tanus DoD toxoid, [...] AND D /2021 Comment: Cephei d GeneXpert (854) [place] [employer] FLU/RS CORONAVIRUS Ordering Pr ovider: JENNYFER MONTERO RNA Report Released Date/Time: Oct 04, 2021 11:22 AM PANEL( [PRESENCE] Reporting La b: [facility] [employer] CEPHEI IN [address] [facility] [address] D) RESPIRATORY Performing Lab: [facility] SPECIMEN BY ONE [facility] [address] LUCRECIA WITH PROBE DETECTION COVID- INFLUENZA Not 10/04 Specimen Type: NASOPHARYNGEAL [place] 19 AND VIRUS A RNA Detected /2021 Comment: Jamie Trelligenced Peak8 PartnersXpert (165) [place] [employer] FLU/RS [PRESENCE] Ordering Pro vider: JENNYFER MONETRO IN UPPER Report Release d Date/Time: Oct 04, 2021 11:22 AM PANEL( RESPIRATORY Reporting L ab: [facility] CEPHEI SPECIMEN BY ONE [facility] [address] D) LUCRECIA WITH Performing Lab : [facility] PROBE [address] [facility] [address] DETECTION COVID- INFLUENZA Not 10/04 Specimen Type: NASOPHARYNGEAL [place] 19 AND VIRUS B RNA Detected /2021 Comment: C RobotDough Softwareeid GeneXpert (185) [place] [employer] FLU/RS [PRESENCE] Ordering Pro vider: JENNYFER MONTERO IN UPPER Report Release d Date/Time: Oct 04, 2021 11:22 AM PANEL( RESPIRATORY Reporting L ab: [facility] CEPHEI SPECIMEN BY ONE S [facility] [address] D) LUCRECIA WITH Performing Lab : [facility] PROBE [address] [facility] [address] DETECTION COVID- RESPIRATORY Not 10/04 Specimen Typ e: NASOPHARYNGEAL [place] 19 AND SYNCYTIAL Detected /2021 Comment: Cep heid GeneXpert (618) IS [facility] FLU/RS VIRUS RNA Ordering Prov ider: JENNYFER MONTERO [PRESENCE] Report Relea sed Date/Time: Oct 04, 2021 11:22 AM PANEL( IN UPPER Reporting Lab: [facility] CEPHEI RESPIRATORY ONE [employer]com [facility] [address] D) SPECIMEN BY Performing Lab: [facility] LUCRECIA WITH [address] Trang [facility] [address] PROBE DETECTION Vital Signs Combined list of [...] Number For Provider Date Date Visit OUTPATIENT [id number] Sebastián LOVELACE, 04/03 Releas ed w/o NH t JUAN Limitations Dougie a([facility] [place] OUTPATIENT [id number] Audiogr JOCODY, 04/03 Released w/o [place] am Limitations Dougie TIFFANIE a([facility] ng [facility] [place] OUTPATIENT [id number] sebastián HUFFMAN, 04/09 Rele ased w/o NH jordana MUNOZ Limitations Dougie physica a([facility] [id number] [place]) OUTPATIENT [id number] Notes BRANDON 04/18 Admit louis ANGELES Weinstein Dougie by: pasha(Orestes [facility] 18 Apr 2012 0934 ------- ------- ------- ------- -- Testicu lar [facility] TELE [id number] Notes ARMIDA, 04/19 NH CONSULT Entered Dougie by: pasha(Kadi turner Olegario CastellanosTAMMY - [place]) Mar 2012 0842 ------- ------- ------- ------- -- F/u on OUTPATIENT [id number] Notes BRANDON 04/26 Relea sed w/o NH Entered , Limitations Geronimo wise by: pasha([facility] 26 Apr 2012 1150 ------- ------- ------- ------- -- post op and lab work follow up OUTPATIENT [id number] Notes BRANDON 05/02 Relea sed w/o NH Entered , Limitations Geronimo wise by: pasha([facility] 02 May 2012 1359 ------- ------- ------- ------- -- follow up OUTPATIENT [id number] PATIENT TAMMY OLSON 06/04 Rel eased w/o [facility] Weiss ODIN Limitations Louis([facility]) OUTPATIENT [id number] Anila ALFARO 06/04 Release d w/o [facility] Abhishek Costello Limitations Charisse stallworth(S by: LORI Christensen ent) D 04 Jun 2012 1356 ------- ------- ------- ------- -- CASE DANNIE ENT OUTPATIENT [id number] Notes BRANDON 06/05 Relea sed w/o [place] Weiss Entered , Limitations Mohini hinojosao(S by: JANELLE FAULKNER Urology LARRY 11 ) May 2012 0854 ------- ------- ------- ------- -- W/I pre-op DIRECT TO [facility]153190 SEN, 06/07 06/12 RETURN ED TO [facility] 7 ABBY S /2011 DUTY Louis MTF FROM OTHER THAN ER OR APU TELE [id number] Anila ALLISON, 06/12 Referred fo r [facility] Weiss CONSULT Entered PAPI C Appointment Louis(S by: Trang BERGER Urology Y,VETO ) RE C 12 Jun 2012 1623 ------- ------- ------- ------- -- Postop call back OUTPATIENT [id number] post op BRANDON 06/18 Rel eased w/o [facility] follow- , ANGELES Limitations Di ego(S up/Lap D RPLND Urology Robotic ) Surgery OUTPATIENT [id number] Notes BRANDON 07/05 Relea sed w/o [facility] Entered ANGELES Limitations Di ego(S by: JANELLE FAULKNER Urology LARRY 11 ) Jun 2012 1041 ------- ------- ------- ------- -- F/u w/i OUTPATIENT [id number] Anila ALFARO, 07/13 Release d w/o [facility] Weiss Entered LORI Limitations Charisse stallworth(S by: LORI Christensen ent) D 13 Jul 2012 1354 ------- ------- ------- ------- -- CASE MANAGEM ENT TELE [id number] Anila BARKSDALE 08/03 [facility] Sa n CONSULT Entered NIMA Louis (S by: Trang BARKSDALE Urology ,LORRAINE ) LY L 02 Aug 20121956 ------- ------- ------- ------- -- Fit for duty TELE [id number] TAMMY OLSON 08/03 [facility] Weiss CONSULT Louis([facility]) OUTPATIENT [id number] Anila ALFARO, 08/10 Release d w/o [facility] Weiss Entered LORI Limitations Charisse o(S by: Trang Jovel ,LORI ent) D 10 Aug 2012 1117 ------- ------- ------- ------- -- CASE MANAGEM ENT OUTPATIENT [id number] Notes DOMINIC, 08/20 Release d w/o [facility] Abhishek SANDOVAL Limitations Dieg o(S by: Trang Case DOMNIIC ManageLORI castellanos ent) D 20 Aug 2012 0804 ------- ------- ------- ------- -- CASE MANAGEM ENT OUTPATIENT [id number] Bilater SERAFINE, 01/28 Rele ased w/o Naval 2 al foot Limitations [facility] pain, [facility] hogue [employer] pain Support Activit y [place] ([facility] [place]) OUTPATIENT [id number] Blood SERAFINE, 02/03 Releas ed w/o Naval 3 Pressur Limitations [facility] e eval [facility] Initial Clinic [employer] Support Activit y [place] ([facility] [place]) OUTPATIENT [id number] Sleep SERAFINE, 03/04 Releas ed w/o Naval 1 disturb Limitations [facility] ance, [facility] possibl Clinic e req [employer] for Support Sleep Activit [facility] [place] [facility]patient [id number] WINSTON,DOMINIQUETian 10/04 [place] Encounter [id number] [facility] History [id number] 12/12 12/12 [place] [id number] /2021 Facilit y Access Lifetime [id number] 12/12 Ambula t Pharmacy ory Pharmac y [...] minutes 012 LORI D [facility] Audiometry 89539 MARK ANTHONYCODYGABRIEL Audiogram DoD Testing Group Testing 012 TIFFANIE WNL ECG Performance of ECG Performance 10735 [facility], [facility] Tracing Only of Tracing Only 012 JUAN E Visual Function Visual Function 73985 [facility], [facility] Screening Screening 012 JUAN E CASE MANAGEMENT, [...] AUDIOMETRIC TESTING DoD OF GROUPS 000 OPHTHALMOLOGICAL [facility] SERVICES: MEDICAL 000 EXAMINATION AND EVALUATION WITH INITIATION OF DIAGNOSTIC AND TREATMENT PROGRAM; INTERMEDIATE, NEW PATIENT THERAPEUTIC, [facility] PROPHYLACTIC, OR 022 DIAGNOSTIC INJECTION (SPECIFY SUBSTANCE OR DRUG); SUBCUTANEOUS OR INTRAMUSCULAR UNLISTED SPECIAL [facility] SERVICE, PROCEDURE 012 OR REPORT [...] section is an empty social history section. [facility] Assessment and Plan Combined list of future care activities from Department of Defense and Veterans Affairs facilities (e.g., assessment and plan notes, appointments, orders, and referrals). Additional future care activities may be listed in the Plan of Care section. Result Assessment and Plan Date Source Assessment and Plan No data available for this 08/29/2022 [facility] section Functional Status Combined list of recent functional and cognitive assessments recorded at Department of Defense and Veterans Affairs (VA).VA Functional [place] Measurement (FIM) Scale: 1 = Total Assistance (Subject = 0% +), 2 = Maximal Assistance (Subject = 25% +), 3 = Moderate Assistance (Subject = 50% +), 4 = Mi nimal Assistance (Subject = 75% +), 5 = Supervision, 6 = Modified [place] (Device), 7 = Complete [place] (Timely, Safely). Assessment Source Assessment Type Assessment Assessment Assessmen t Date/Time Skill Score Details No data available for this section
--- OUTSIDE RECORDS SUMMARY | 2022-08-29 08:11 | XMS_ITS | Encounter Summary ---
:1970 Author Organization [place] Address [facility] [place] [address] Care Team Providers Name Role Phone [facility], Keturah Betancourt Primary Care Provider [phone] Encounter Details Date Type Department Care [...] on filedocumented in this encounter Care Teams Aircraft Instrument Mechanic Relationship Specialty Start Date End Date Clinic, Keturah Betancourt PCP - General 03/25/20 [address] [place] [address] documented as of this encounter
--- OUTSIDE RECORDS SUMMARY | 2022-08-29 08:11 | XMS_ITS | Encounter Summary ---
:1970 Author Organization [place] Address [facility]0 [facility] [place] [address] Care Team Providers Name Role Phone Clinic, Keturah Betancourt Primary Care Provider Reason for Visit Reason Comments Palpitations Fatigue Diarrhea Encounter Details Date Type Department Care Team Description 03/25/2020 Emergency [facility] Jessica Tian MD Hypertension, [facility] Emergency Dep t EMERGENCY PHYSICIANS unspecified type [address] [place], [place] [address] [facility] [address] [address] [place] [address] (Wo rk) Social History Tobacco [...] through Care Everywhere. Hypertension, New (Begin Treatment) (Liberian)documented in this encounter Medications at Time of [...] and eating healthy. He was seen at [facility] where they did an EKG [...] Sinus rhythm Normal ECG Rate 77 bpm. OR interval 138. QRS duration 92. QT/QTc 356/402. [...] history of hypertension. He is in the [place] and just recently returned from [facility]. He hashad no recent fevers, URI [...] and the provider's statements to me. 03/25/2020 [facility] EMERGENCY DEPARTMENT Sathish Tian MD 03/26/20 [...] Signature TSH 1.24 0.40 - 4.00 03/25/2020 [facility] mU/L 6:24 PM CDT HOSPITAL Specimen Anatomical Collection Method Collection Time Receive d Time (Source) Location / / Volume Laterality Blood specimen 03/25/2020 5:45 PM 020 5:53 (specimen) CDT PM CDT Sathish Tian MD LAB - BLOOD ORDERABLES Performing Organization Address City/State/ZIP Code Phon e Number M [facility] [address] [place] [address] [facility] [address] [place], [place] [address], [facility] [place] [phone] Troponin I (03/25/2020 5:45 PM CDT) athologist Signature Troponin I ES <0.015 0.000 - 03/25/2020 [place] 0.045 ug/L 6:18 PM [facility] Comment: The 99th percentile for upper reference [...] Address City/State/ZIP Code Phon e Number [place] [address] [address] [place] [address] [facility] [address] [place] [address] [place] [address] (ABNORMAL) Comprehensive metabolic panel (03/25/2020 5:45 PM CDT) athologist Signature Sodium 136 133 - 144 03/25/2020 [place] mmol/L 6:07 PM [facility] Potassium 3.8 3.4 - 5.3 03/25/2020 [place] mmol/L 6:07 PM [facility] Chloride 102 94 - 109 03/25/2020 [place] mmol/L 6:07 PM [facility] Carbon Dioxide 29 20 - 32 03/25/2020 [place] mmol/L 6:14 PM [facility] Anion Gap 5 3 - 14 03/25/2020 [place] mmol/L 6:14 PM [facility] Glucose 93 70 - 99 03/25/2020 [place] mg/dL 6:14 PM [facility] Urea Nitrogen 16 7 - 30 03/25/2020 [place] mg/dL 6:14 PM [facility] Creatinine 1.19 0.66 - 03/25/2020 [place] 1.25 mg/dL 6:14 PM [facility] GFR Estimate 72 >60 03/25/2020 [place] mL/min/{1. 6:14 PM [facility] 73_m2} HOSPITAL Comment: Non GFR Calc Starting 09/11/2018, serum creatinine ba sed estimated GFR (eGFR) will be calculated using the Chronic Kidney Dise [facility] Epidemiology Collaboration (CKD-EPI) equation. GFR Estimate If 83 >60 mL/min/{1.73_m2} 03/25/2020 6: 14 PM [facility] Comment: GFR Calc Starting 09/11/2018, serum creatinine ba sed estimated GFR (eGFR) will be calculated using the Chronic Kidney Dise [facility] Epidemiology Collaboration (CKD-EPI) equation. Calcium 9.0 8.5 - 10.1 03/25/2020 6:14 PM [place] R IDGES mg/dL [facility] Bilirubin Total 0.5 0.2 - 1.3 mg/dL 03/25/2020 6:16 PM [facility] Albumin 4.0 3.4 - 5.0 g/dL 03/25/2020 6:16 PM [facility] Protein Total 8.0 6.8 - 8.8 g/dL 03/25/2020 6:16 PM [facility] Alkaline Phosphatase 78 40 - 150 U/L 03/25/2020 6:16 PM [facility] ALT 91 (H) 0 - 70 U/L 03/25/2020 6:16 PM [facility] AST 49 (H) 0 - 45 U/L 03/25/2020 6:16 PM [facility] Specimen Anatomical Collection Method Collection Time Receive d Time (Source) Location / / Volume Laterality Blood specimen 03/25/2020 5:45 PM 020 5:53 (specimen) T [facility] Sathish Tian MD LAB - BLOOD ORDERABLES Performing Organization Address City/State/ZIP Code Phon e Number [place] [address] [place] [address] [facility] [address] [place], [place] [address] [facility] [phone] [place] [address] [place] [address], [place] H[facility]PITAL CBC with platelets differential (03/25/2020 5:45 PM T) [facility] Method Time Signature WBC 10.0 4.0 - 03/25/2020 [facility] 11.0 5:59 PM [facility] 10e9/L HOSPITAL RBC Count 5.62 4.4 - 5.9 03/25/2020 [facility] 10e12/L 5:59 PM [facility] Hemoglobin 17.5 13.3 - 03/25/2020 [facility] 17.7 g/dL 5:59 PM [facility] Hematocrit 52.4 40.0 - 03/25/2020 [facility] 53.0 % 5:59 PM [facility] MCV 93 78 - 100 03/25/2020 [facility] fl 5:59 PM [facility] MCH 31.1 26.5 - 03/25/2020 [facility] 33.0 pg 5:59 PM [facility] MCHC 33.4 31.5 - 03/25/2020 [facility] 36.5 g/dL 5:59 PM [facility] RDW 12.8 10.0 - 03/25/2020 [facility] 15.0 % 5:59 PM [facility] Platelet Count 283 150 - 450 03/25/2020 [facility] 10e9/L 5:59 PM [facility] Diff Method Automated 03/25/2020 [facility] Method 5:59 PM [facility] % Neutrophils 58.6 % 03/25/2020 [facility] 5:59 PM [facility] % Lymphocytes 27.3 % 03/25/2020 [facility] 5:59 PM [facility] % Monocytes 8.1 % 03/25/2020 [facility] 5:59 PM [facility] % Eosinophils 4.4 % 03/25/2020 [facility] 5:59 PM [facility] % Basophils 0.9 % 03/25/2020 [facility] 5:59 PM [facility] % Immature 0.7 % 03/25/2020 [facility] Granulocytes 5:59 PM [facility] Nucleated RBCs 0 0 /100 03/25/2020 [facility] 5:59 PM [facility] Absolute 5.9 1.6 - 8.3 03/25/2020 [place] Neutrophil 10e9/L 5:59 PM [facility] Absolute 2.7 0.8 - 5.3 03/25/2020 [place] Lymphocytes 10e9/L 5:59 PM [facility] Absolute 0.8 0.0 - 1.3 03/25/2020 [place] Monocytes 10e9/L 5:59 PM [facility] Absolute 0.4 0.0 - 0.7 03/25/2020 [place] Eosinophils 10e9/L 5:59 PM [facility] Absolute 0.1 0.0 - 0.2 03/25/2020 [place] Basophils 10e9/L 5:59 PM [facility] Abs Immature 0.1 0 - 0.4 03/25/2020 [place] Granulocytes 10e9/L 5:59 PM [facility] Absolute 0.0 03/25/2020 [place] Nucleated RBC 5:59 PM [facility] Specimen Anatomical Collection Method Collection Time Receive d Time (Source) Location / / Volume Laterality Blood specimen 03/25/2020 5:45 PM 020 5:53 (specimen) CDT PM CDT Sathish Tian MD LAB - BLOOD ORDERABLES Performing Organization Address City/[facility]/ZIP Code Phon e Number [place] [address] [address] [place] [address] [facility] [address] [phone] EKG 12-lead, tracing only (03/25/2020 5:36 PM CDT) [facility] gist Method Time Signature Interpretation ECG Click View RADIOLOGY Image link RESULTS to view waveform and result Specimen (Source) Anatomical Collection Method Collection Time Re ceived Time Location / / Volume Laterality 03/25/2020 5:36 PM CDT Sathish Tian MD ECG ORDERABLES Performing Organization Address City/[facility] Phon e Number RADIOLOGY RESULTS documented in this encounter Visit Diagnoses Diagnosis Hypertension, unspecified type documented in this encounter Care Teams Italian Teacher Relationship Specialty Start Date End Date Clinic, Keturah Betancourt PCP - General 03/25/20 [address] [place] [address] documented as of this encounter
--- OUTSIDE RECORDS SUMMARY | 2022-08-29 08:11 | XMS_ITS | Encounter Summary ---
:1970 Author Organization [place] Address [address] [place] [address]. [place] [address] Care Team Providers Name Role Phone Unavailable Primary Care Provider Unavailable Reason for Visit Reason Onset Date Comments Walk In Clinic 10/28/2011 back pain Encounter Details Date Type Department Care Team Description 10/28/2011 Telephone [facility] None [facility] ([facility]) [address], [address] [place] [address] Social History Tobacco Use [...] Gordon RN Message Handled by Nurse Triage LOGY REP documented in this encounter Plan of Treatment Not on filedocumented as of this encounter Visit Diagnoses Not on filedocumented in this encounter
--- OUTSIDE RECORDS SUMMARY | 2022-08-29 08:11 | XMS_ITS ---
[...] Not available USE DIRECTED BD Regular Bevel [place] 18 gauge x 1 Active ? Not [...] BLDV ? Estradiol, 45.6 20.0-47.0 F inal [place] Serum Sensitive pg/mL pg/mL [facility]: [address] 05/29/2020 CBC W/ Diff BLDV ? Wbc 9.80 3.80-10.80 Coby l [place] 10*3/uL 10*3/uL [facility]: 60[address] [facility] 200, [place] ? ? BLDV ? Ne% 68.60 % 42.00-82.0 Final [place] 0 % [facility]: [address] ? ? BLDV ? Ly% 19.00 % 15.00-35.0 Final [place] 0 % [facility]: [address] [place] [address], [place] ? ? BLDV ? Mo% 9.00 % 4.00-12.00 Final [place] % [facility]: [address] [place] [address], [place] ? ? BLDV ? Eo% 2.80 % 1.00-6.00 Final [place] % [facility]: [address] [place] [address] ? ? BLDV ? Ba% 0.60 % 0.00-2.00 Final [place] % [facility]: [address] [place] [address] ? ? BLDV ? Ne# 6.70 1.50-7.80 Final [place] 10*3/uL 10*3/uL [facility]: [address] [place] [address] ? ? BLDV ? Ly# 1.90 0.85-3.90 Final [place] 10*3/uL 10*3/uL [facility]: [address] [place] [address] ? ? BLDV ? Mo# 0.90 0.20-0.95 Final [place] 10*3/uL 10*3/uL [facility]: [address] [place] [address] ? ? BLDV ? Eo# 0.30 0.02-0.50 Final [place] 10*3/uL 10*3/uL [facility]: [address] [place] [address] ? ? BLDV ? Ba# 0.10 0.00-0.20 Final [place] 10*3/uL 10*3/uL [facility]: [address] [place] [address] ? ? BLDV ? Rbc 5.55 4.20-5.80 Final [place] 10*6/uL 10*6/uL [facility]: [address] [place] [address] ? ? BLDV High Hgb 17.40 13.20-17.1 Final [place] g/dL 0 g/dL [facility]: [address] [place] [address] ? ? BLDV High Hct 52.00 % 38.50-50.0 Final [place] 0 % [facility]: [address] [place] [address], [place] ? ? BLDV ? Mcv 93.50 80.00-100. Final [place] potato chip frier fL 00 fL [facility]: [address] [place] [address], [place] ? ? BLDV ? Mch 31.40 27.00-33.0 Final [place] pg 0 pg [facility]: [address] [place] [address], [place] ? ? BLDV ? Mchc 33.50 32.00-36.0 Final [place] potato chip frier g/dL 0 g/dL [facility]: [address] ? ? BLDV ? Rdw 13.50 % 11.00-15.0 Final [place] 0 % [facility]: [address] ? ? BLDV ? Plt 255.00 140.00-400 Final [place] chip frier 10*3/uL .00 Urology - 10*3/uL [facility]: [address] [place] [address] ? ? BLDV ? Mpv 9.60 fL ? Final [place] [facility]: [address] [place] [address] 05/29/2020 Prostate BLDV ? PSA, Total 0.55 0.00-4.00 Fin al [place] Specific Ag, NG/mL NG/mL [facility] - Serum [facility]: [address] [place] [address] 05/29/2020 Testosterone BLDV ? Testosterone 716.87 175.00- 781 Final [place] , NG/dL .00 NG/dL Urology - Bioavailable [facility] , Serum Lab: [address] [place] [address] ? ? BLDV ? Testosterone, 20.4 9.0-30.0 Final [place] Free NG/dL NG/dL [facility]: [address] [place] [address] ? ? BLDV ? % Ftesto 2.9 % ? Final [place] [facility]: [address] ? ? BLDV High Testosterone, 497 40-235 Final [place] Bioavailable NG/dL NG/dL [facility]: [address] [place] [address] ? ? BLDV ? Shbg 18.6 13.3-89.5 Final [place] nmol/L nmol/L [facility]: 60[address] [facility] 200, [place] ? ? BLDV ? Albumin-olymp 4.5 3.5-5.0 Final [place] g/dL g/dL [facility]: 60[address] [facility] 200, [place] Past Encounters None recorded. Social History Tobacco [...]
--- OUTSIDE RECORDS SUMMARY | 2022-08-29 08:11 | XMS_ITS | Encounter Summary ---
:1970 Author Organization [place] Address [address] [place] [address] Care Team Providers Name Role Phone Unavailable [...]
--- OUTSIDE RECORDS SUMMARY | 2022-08-29 08:11 | XMS_ITS | Clinical Summary ---
:1970 Author Organization [place] Address [facility] [place] [address] Care Team Providers Name Role Phone Clinic, Keturah Betancourt Primary Care Provider [phone] Medications Medication Sig Dispensed Refills Start [...] 111.1 kg (245 lb) 11/03/2018 4:33 AM RECRUITING ASSISTANT Height 180.3 cm (5' 11) 11/03/2018 4:33 AM RECRUITING ASSISTANT Body Mass Index 34.17 11/03/2018 4:33 AM RECRUITING ASSISTANT Plan of Treatment Health Maintenance Due Date [...] Phone Address Type / Group JANET/POLLO RODRIGUEZ [facility] [id number] 2017-Presen [phone] [address] [place] [address] JANET/POLLO RODRIGUEZ LUND [id number] 2018-Presen [phone] [place] [address] Care Teams Computer Designer Relationship Specialty Start Date End Date Clinic, Keturah Betancourt PCP - General 03/25/20 [address] [place] [address]
--- OUTSIDE RECORDS SUMMARY | 2022-08-29 08:11 | XMS_ITS | Encounter Summary ---
:1970 Author Organization [place] Address [facility] [place] [address] Care Team Providers Name Role Phone Unavailable Primary Care Provider Unavailable Reason for Visit Reason Comments Pharyngitis Encounter Details Date Type Department Care Team Description 11/03/2018 Emergency [facility] Solomon Barnes MD Pharyngitis, [facility] Emergency Dep t EMERGENCY PHYSICIANS unspecified etiology [address] [place], [place] [address] [facility] [address] [place] [address] [phone] (Wo rk) Social History Tobacco Use Types Packs/Day Years Used Date Smoking Tobacco: Never Smokeless Tobacco: Never Alcohol Use Standard Drinks/Week Comments Yes 0 (1 standard drink = 0.6 oz pure alcoho l) socially Sex Assigned at Date Recorded Not on file documented as of this encounter Last Filed Vital Signs Vital Sign Reading Time Taken Comments Blood Pressure 138/92 11/03/2018 5:26 AM FEATURES REPORTER Pulse 87 11/03/2018 5:26 AM FEATURES REPORTER Temperature 36.9 ??C (98.5 ??F) 11/03/2018 4:33 AM FEATURES REPORTER Respiratory Rate 20 11/03/2018 5:26 AM FEATURES REPORTER Oxygen Saturation 99% 11/03/2018 5:26 AM FEATURES REPORTER Inhaled Oxygen Concentration - - Weight 111.1 kg (245 lb) 11/03/2018 4:33 AM FEATURES REPORTER Height 180.3 cm (5' 11) 11/03/2018 4:33 AM FEATURES REPORTER Body Mass Index 34.17 11/03/2018 4:33 AM FEATURES REPORTER documented in this encounter Discharge Instructions AttachmentsThe following attachments cannot be sent through Care Everywhere. PHARYNGITIS, REPORT PENDING (IVORIAN)documented in this encounter Medications at Time of [...] no fever, c/o fatigue. C/o sinus congestion. URES REPORTER Solomon Barnes MD - 11/03/2018 4:26 AM [...] EMERGENCY DEPARTMENT Solomon Barnes MD 11/03/18 0618 URES REPORTER documented in this encounter Miscellaneous Notes Result Encounter Note - Cornelio Jansen RN - 11/03/2018 5:27 AM CST Final Beta strep group A r/o culture is NEGATIVE for Group A streptococcus. No treatment or change in treatment per [place] Strep protocol. URES REPORTER documented in this encounter Plan of Treatment Not on filedocumented as of this encounter Procedures Procedure Name Priority Date/Time Associated Diagnosis Comme nts RAPID STREP SCREEN STAT 11/03/2018 4:52 AM Res ults for this THROAT SWAB FEATURES REPORTER procedure are i n the results section. BETA HEMOLYTIC Routine 11/03/2018 4:52 AM Pharyngitis, Results for this STREP GROUP A FEATURES REPORTER unspecified etiology proced ure are in CULTURE the results section. documented in this encounter Results Beta strep group A culture (11/03/2018 4:52 AM FEATURES REPORTER) Component Value Ref Test Analysis Performed At [facility] Range Method Time Signature Specimen Throat INFECTIOUS Description DISEASE DIAGNOSTIC LABORATORY Special Specimen 11/03/2018 [facility] collected in 11:49 AM [place] [facility] eSwab transport FEATURES REPORTER [facility] (white cap[facility] BANK Culture Micro No Beta 11/05/2018 INFECTIOUS Streptococcus 6:16 AM FEATURES REPORTER DISEASE isolated DIAGNOSTIC LABORATORY Specimen Anatomical Collection Method Collection Time Receive d Time (Source) Location / / Volume Laterality Specimen from 11/03/2018 4:52 AM 11/03/19 19 5:07 throat FEATURES REPORTER AM FEATURES REPORTER (specimen) Solomon Barnes MD LAB - MICRO GENERAL ORDERABL ES Performing Organization Address City/State/ZIP Code Phon e Number INFECTIOUS DISEASES [address] [place] [address] DIAGNOSTIC LABORATORY, [facility] INFECTIOUS DISEASE [address] [place] [address], [facility] DIAGNOSTIC LABORATORY [address] [address], [facility] Rapid strep screen (11/03/2018 4:52 AM FEATURES REPORTER) Component Value Ref Test Analysis Performed At [facility] Range Method Time Signature Specimen Throat [facility] Rapid Strep A NEGATIVE: No 11/03/2018 [place] Screen Group A 5:06 AM FEATURES REPORTER [facility] streptococcal [facility] antigen detected by immunoassay, await culture report. Specimen Anatomical Collection Method Collection Time Receive d Time (Source) Location / / Volume Laterality Specimen from 11/03/2018 4:52 AM 11/03/19 19 4:56 throat FEATURES REPORTER AM FEATURES REPORTER (specimen) Solomon Barnes MD LAB - MICRO GENERAL ORDERABL ES Performing Organization Address City/[facility]/ZIP Code Phon e Number [place] [address] [address] [place] [address] [phone] documented in this encounter Visit Diagnoses Diagnosis Pharyngitis, unspecified etiology documented in this encounter Administered Medications Inactive Administered Medications - up to 3 most recent administrations Medication Order MAR Action Action Date Dose Rate Site dexamethasone (DECADRON) tablet 10 Given 11/03/2018 4:52 AM FEATURES REPORTER 10 mg mg 10 mg, Oral, ONCE, On 11/03/18 at 0446, For 1 dose documented in this encounter Active and Recently Administered Medications Times are shown in FEATURES REPORTER. Scheduled Medication Order 11/01/2018 11/02/2018 11/03/2018 dexamethasone (DECADRON) tablet 10 mg (COMPLETED) 0452 (Given - Provider: Susannah Lobo RN) 10 mg, Oral, ONCE, 11/03/18 at 0446, For 1 dose documented in this encounter
[2022-08-29 14:12] LABS: Chloride* 103 mmol/L (96-114)
[2022-08-29 14:13] LABS: Albumin* 4.5 g/dL (3.3-5.0); Potassium* 4.3 mmol/L (3.6-5.1); Sodium* 141 mmol/L (135-149)
[2022-08-29 14:15] LABS: Creatinine* 1.1 mg/dL (0.5-1.5); Estimated Glomerular Filt Rate 82 ml/min
[2022-08-29 14:16] LABS: Alanine Aminotransferase* 60 U/L (4-50); Alkaline Phosphatase* 78 U/L (40-150); Aspartate Amino Transferase* 34 U/L (12-35); Bilirubin Total* 0.8 mg/dL (0.1-1.5); Blood Urea Nitrogen* 12 mg/dL (5-24); Carbon Dioxide* 30 mmol/L (20-32); Glucose* 104 mg/dL (60-115); Total Protein* 7.4 g/dL (6.0-8.3)
[2022-08-29 14:17] LABS: Calcium* 9.4 mg/dL (8.4-10.6)
[2022-08-29 14:34] LABS: Vitamin D 25 Hydroxy* 25 ng/mL (30-80)
[2022-08-29 14:46] LABS: PSA Screen* 0.74 ng/mL (0.10-4.00)
[2022-08-29 15:05] LABS: Vitamin B12* 446 pg/mL (243-894)
[2022-08-30 23:07] LABS: Sex Hormone Binding Globulin 23 nmol/L (19-76); Testosterone, Adult Male 668 ng/dL (300-890); Testosterone, Free Calculation 156 pg/mL (47-244); Testosterone, Percentage Free 2.3 % (1.6-2.9)
== END 2022-08-29 11:11 | disposition home or self-care (01) ==
PROVIDERS: PCP Family Medicine; Visit Provider Family Medicine
DX: Z01.818 Encounter for other preprocedural examination (principal); R79.89 Other specified abnormal findings of blood chemistry; R53.83 Other fatigue; E29.1 Testicular hypofunction; I10 Essential (primary) hypertension; Z85.47 Personal history of malignant neoplasm of testis
CPT/HCPCS: 80053; 82306; 82607; 84153; 84270; 84402; 84403; 84443

== ENCOUNTER 2022-11-25 09:32 | Outpatient (CLI) | payer OTHER, SELFPAY | END 2022-11-25 09:33 | disposition home or self-care (01) | PROVIDERS: PCP Family Medicine; Visit Provider Family Medicine | DX: Z00.00 Encounter for general adult medical examination without abnormal findings (principal); R53.83 Other fatigue; I10 Essential (primary) hypertension; E29.1 Testicular hypofunction; R79.89 Other specified abnormal findings of blood chemistry; Z13.6 Encounter for screening for cardiovascular disorders | CPT/HCPCS: 80053; 80061; 82306; 82607; 84270; 84402; 84403 ==

== ENCOUNTER 2022-12-20 14:24 | Outpatient (CLI) | payer OTHER, SELFPAY ==
[2022-12-20] MEDS: PERFLUTREN LIPID MICROSPHERES 2 ML VIAL IV (15:20)
--- NOTE | 2022-12-20 17:29 | W.PM.STED ---
Stress Test Note Date Date Seen: 12/20/22 Date of test: 12/20/22 Providers Primary care provider: Jose Manuel Hernandez Stress test physician: Porfirio Freeman Stress Test Note Stress test ordered: Stress Echo Indication for test: Chest pain Results discussion: Patient presents for a stress echo after review of the cardiac stress test medical history form, he would like to proceed after risks benefits and side effects of this discussed in detail, pretest EKG shows normal sinus rhythm with a ventricular rate of 91 blood pressure 160/94. No acute ST wave changes are noted. Following standard Mark Anthony protocol patient is exercised for a total time of 10 minutes 2nd, achieved about mouth equivalent of 11.7 Mets, with a maximum heart rate of 166, maximum blood pressure was 210/100, test is terminated because of fulfillment of protocol, during this test he had no chest pain shortness of breath, no specific ST wave changes suggestive of ischemia are noted. He recovered normally in the recovery. Impression: Negative electrographic portion of stress echo Follow up suggested: Await echo images clinical correlation with these will be needed. Cardiology will review that echo portion. Patient left this testing facility in excellent condition at baseline,
[2022-12-20 17:37] VITALS: BP 159/75; PULSE 104
== END 2022-12-20 14:25 | disposition home or self-care (01) ==
LOC: STRESS 14:24
PROVIDERS: PCP Family Medicine; Visit Provider Family Medicine
DX: R07.9 Chest pain, unspecified (principal); I10 Essential (primary) hypertension
CPT/HCPCS: 93016; 93325; 93351; Q9957

== ENCOUNTER 2023-01-08 16:37 | Emergency (ER) | payer OTHER, SELFPAY ==
[2023-01-08 16:48] VITALS: BP 173/99; PULSE 84; RESP 18; TEMP 36.6; O2SAT 96; BMI 37.0
--- NOTE | 2023-01-08 16:52 | CRLHL7_ITS ---
For Patients: As a result of the Cures Act, medical imaging exams and procedure reports are released immediately into your electronic medical record. You may view this report before your referring provider. If you have questions, please contact your health care provider. INDICATION: Chest pain. TECHNIQUE: Chest 2 views. COMPARISON: None. FINDINGS: Cardiovascular and mediastinum: Cardiomediastinal silhouette is within normal limits Lungs and pleural spaces: Lungs are clear. No sign of pleural effusion. No pneumothorax. Bones and soft tissues: No significant findings. IMPRESSION: No acute or significant findings. Dictated by Dalia Munson MD @ 01/08/2023 6:06:22 PM (Electronically Signed)
[2023-01-08 17:18] LABS: Basophils Absolute Auto 0.04 K/uL (0.00-0.30); Basophils Percent Auto 0.5 % (0.0-3.0); Eosinophils Absolute Auto 0.26 K/uL (0.00-0.50); Eosinophils Percent Auto 3.1 % (0.0-7.0); Hematocrit 53.5 % (37.0-53.0); Hemoglobin* 18.1 gm/dL (13.5-17.5); Immature Granulocytes Abs Auto 0.05 K/uL (0.00-0.30); Immature Granulocytes Pct Auto 0.6 %; Lymphocytes Absolute Auto 2.28 K/uL (0.90-2.90); Lymphocytes Percent Auto 26.8 % (20-44); Mean Corpuscular HGB Conc 34 gm/dL (32-36); Mean Corpuscular Hemoglobin 31 pg (26-34); Mean Corpuscular Volume 92 fL (80-100); Neutrophils Absolute Auto 5.02 K/uL (1.7-7.0); Platelet Count* 271 K/uL (140-440); RDW Coefficient of Variation % 12.6 % (11.5-15.5); Red Blood Count 5.81 m/uL (4.30-5.90)
[2023-01-08 17:20] LABS: Slide Review Reflex No
[2023-01-08 17:55] LABS: PCR FLU A Negative PCR FLU A (Negative); PCR FLU B Negative PCR FLU B (Negative); PCR RSV Negative PCR RSV (Negative)
[2023-01-08 17:56] LABS: SARS PCR* Negative SARS-CoV-2 (Negative)
--- NOTE | 2023-01-08 18:01 | ED_ITS ---
HPI - General Adult General Chief complaint: Cough Stated complaint: Cough Sore Throat Congestion Time Seen by Provider: 01/08/23 16:51 Source: patient Mode of arrival: ambulatory Limitations: no limitations History of Present Illness HPI narrative: 52-year-old male coming in today complaining of a cough it has been going on for a week. Feels like the cough is getting worse. Cough is generally nonproductive but sometimes has clear sputum. No fevers or chills that he is aware of. Patient states he has had pneumonia in the past and is concerning as it again because his symptoms are getting worse. He complains of congestion as well. Denies any shortness of breath. He was recently on a cruise just got back right when his symptoms started. Related Data Previous Rx's Medication Instructions Recorded cholecalciferol (vitamin D3) 125 125 mcg PO QDAY #90 caps 08/29/22 mcg (5,000 unit) capsule testosterone cypionate 200 mg/mL 120 mg (0.6 mL) IM .weekly #4 mL 09/22/22 intramuscular oil lisinopril 10 mg tablet 10 mg PO DAILY #90 tabs 11/08/22 safety needles 18 gauge x 1 (Easy #50 ea 11/16/22 Touch FlipLock Needle) syringe with needle, safety 3 mL #50 ea 11/16/22 25 gauge x 1 (BD SafetyGlide Syringe) bupropion HCl 150 mg tablet,12 hr 150 mg PO BID #60 tabs 11/25/22 sustained-release (Wellbutrin SR) tadalafil 5 mg tablet (Cialis) 5 - 10 mg PO QDAY PRN sexual 11/25/22 activity #30 tabs Allergies Allergy/AdvReac Type Severity Reaction Status Date / Time No Known Drug Allergies Allergy Verified 12/05/22 18:19 Review of Systems Status of ROS: Reports: 10 or more systems reviewed and unremarkable except as noted in History and below [facility] Medical History Erectile dysfunction ?N52.9 - Male erectile dysfunction, unspecified (ICD-10) History of malignant neoplasm of testis ?Z85.47 - Personal history of malignant neoplasm of testis (ICD-10) Hypertension ?I10 - Essential (primary) hypertension (ICD-10) Lymph node enlargement ?R59.9 - Enlarged lymph nodes, unspecified (ICD-10) Testicle cancer ?C62.90 - Malignant neoplasm of unspecified testis, unspecified whether descended or undescended (ICD-10) Surgical History History of orchiectomy ?Z90.79 - Acquired absence of other genital organ(s) (ICD-10) Family History Other History of orchiectomy Social History Smoking Status: Never smoker Do you use any of these nicotine containing products: None Second hand tobacco smoke exposure: No How often do you have a drink containing alcohol: never How often do you have six or more drinks on one occasion: Never AUDIT-C Alcohol total score: 0 Non-prescribed substance use: denies use service: Yes Exam Narrative: Exam Narrative: Well-nourished well-developed patient in no acute distress. Alert and oriented. Answers questions appropriately. Mood and affect are appropriate. Thoughts are goal oriented and rational. No tangential or magical thinking noted. Patient speaks in full sentences without needing to catch his breath. HEENT: Normocephalic atraumatic. Pupils are equally round reactive to light. Extraocular muscles are intact. Conjunctivae are moist without any icterus noted. Moist mucous membranes. Posterior pharynx is normal. Neck is soft without any lymphadenopathy or thyromegaly. No masses are appreciated. Cardiovascular: Heart is regular rate and rhythm S1 and S2 are present without any murmurs. Lungs: Clear to auscultation bilaterally no wheezes rhonchi or rales are appreciated. Patient takes deep breaths without any discomfort. Skin: Well perfused without any obvious rashes. Const: Vital Signs, click to edit/add: Vital Signs - 24 hr 01/08/23 16:48 Temperature 97.9 F Pulse Rate [Right Pulse Oximeter] 84 Respiratory Rate 18 Blood Pressure [Ri ght Upper Arm] 173/99 H Pulse Oximetry 96 Oxygen Delivery Me thod Room Air Course Course Hospital Course: CBC does not have any evidence of infection with normal white count. Negative for COVID, influenza, RSV. Chest x-ray, read by me, does not show any acute pathology. Vital Signs Vital signs: Initial Vital Signs Temperature 97.9 F 01/08/23 16:48 Temperature Source Temporal Artery Scan 01/08/23 16:48 Pulse Rate 84 01/08/23 16:48 Pulse Rhythm Regular 01/08/23 16:48 Respiratory Rate 18 01/08/23 16:48 Blood Pressure 173/99 H 01/08/23 16:48 Blood Pressure Mean 123 01/08/23 16:48 Blood Pressure Position Sitting 01/08/23 16:48 Pulse Oximetry 96 01/08/23 16:48 Oxygen Delivery Method Room Air 01/08/23 16:48 Vital Signs Temperature 97.9 F 01/08/23 16:48 Pulse Rate 84 01/08/23 16:48 Respiratory Rate 18 01/08/23 16:48 Blood Pressure 173/99 H 01/08/23 16:48 Pulse Oximetry 96 01/08/23 16:48 Oxygen Delivery Method Room Air 01/08/23 16:48 Temperature 97.9 F 01/08/23 16:48 Pulse Rate 84 01/08/23 16:48 Respiratory Rate 18 01/08/23 16:48 Blood Pressure 173/99 H 01/08/23 16:48 Pulse Oximetry 96 01/08/23 16:48 Oxygen Delivery Method Room Air 01/08/23 16:48 Medical Decision Making MDM Narrative Medical decision making narrative: 52-year-old male with a cough, likely viral in nature. No evidence of pneumonia today. Patient reassured and symptomatic treatment was discussed. Lab Data Lab results reviewed: Yes I reviewed the patient's lab results Labs: Lab Results 01/08/23 01/08/23 Range/Units 16:51 17:10 WBC 8.50 (4.50-11.00) K/uL RBC 5.81 (4.30-5.90) m/uL Hgb 18.1 H (13.5-17.5) gm/dL Hct 53.5 H (37.0-53.0) % MCV 92 (80-100) fL MCH 31 (26-34) pg MCHC 34 (32-36) gm/dL RDW Coeff of Maribel 12.6 (11.5-15.5) % Plt Count 271 (140-440) K/uL Neut % (Auto) 59.0 (42.0-72.0) % Lymph % (Auto) 26.8 (20-44) % [place] % (Auto) 10.0 (0.0-11.0) % Eos % (Auto) 3.1 (0.0-7.0) % Baso % (Auto) 0.5 (0.0-3.0) % Neut # (Auto) 5.02 (1.7-7.0) K/uL Lymph # (Auto) 2.28 (0.90-2.90) K/uL [place] # (Auto) 0.90 (0.00-0.90) K/UL Eos # (Auto) 0.26 (0.00-0.50) K/uL Baso # (Auto) 0.04 (0.00-0.30) K/uL SARS-CoV-2 (PCR) Negative SARS-CoV-2 (Negative) Influenza Type A (PCR) Negative PCR FLU A (Negative) Influenza Type B (PCR) Negative PCR FLU B (Negative) RSV (PCR) Negative PCR RSV (Negative) Imaging Data Chest x-ray: Attestation: I have reviewed the pertinent imaging results. Radiologist's impression: Chest 2 views. COMPARISON: None. FINDINGS: Cardiovascular and mediastinum:? Cardiomediastinal silhouette is within normal limits? Lungs and pleural spaces:? Lungs are clear.? No sign of pleural effusion.? No pneumothorax.? Bones and soft tissues:? No significant findings. IMPRESSION: No acute or significant findings. Discharge Plan Discharge Clinical Impression: URI (upper respiratory infection), Cough Patient Disposition: Home, Self-Care Condition: Stable Additional Instructions: No evidence of pneumonia was found on your workup today. This is likely a viral infection causing your cough. Recommend [id number] cough syrup, cough drops, fluid hydration, rest as much as you can. Up with your primary care provider if you feel like you are not improving over the next week. Prescriptions: No Action tadalafil [Cialis] 5 mg tablet 5 - 10 mg PO QDAY PRN (Reason: sexual activity) Qty: 30 1RF Rx Instructions: administer approximately 30min before sexual activity; do not use more than 1 dose per 24hrs bupropion HCl [Wellbutrin SR] 150 mg tablet sustained-release 12 hr 150 mg PO BID Qty: 60 1RF cholecalciferol (vitamin D3) 125 mcg (5,000 unit) capsule 125 mcg PO QDAY Qty: 90 3RF testosterone cypionate 200 mg/mL oil 120 mg IM .weekly Qty: 4 1RF lisinopril 10 mg tablet 10 mg PO DAILY Qty: 90 2RF (DME) Easy Touch FlipLock Needle 18 gauge x 1 needle See Rx Instructions .Route Qty: 50 0RF Rx Instructions: For testosterone injections (DME) BD SafetyGlide Syringe 3 mL 25 gauge x 1 syringe See Rx Instructions .Route Qty: 50 0RF Rx Instructions: for testosterone injections Follow Up/Referrals: Jose Manuel Hernandez MD [Primary Care Provider] - Stand Alone Forms: [facility] Info Instructions
[2023-01-08 18:19] VITALS: BP 129/76; PULSE 83; O2SAT 95
== END 2023-01-08 18:22 | disposition home or self-care (01) ==
PROVIDERS: Emergency Provider Family Medicine; PCP Family Medicine
DX: Z20.822 Contact with and (suspected) exposure to COVID-19 (principal); J06.9 Acute upper respiratory infection, unspecified; R05.9 Cough, unspecified
CPT/HCPCS: 36415; 71046; 85025; 87631; 99283; 99284

== ENCOUNTER 2023-04-04 08:04 | Outpatient (CLI) | payer OTHER, SELFPAY | END 2023-04-04 08:05 | disposition home or self-care (01) | PROVIDERS: PCP Family Medicine; Visit Provider Family Medicine | DX: R79.89 Other specified abnormal findings of blood chemistry (principal); R73.9 Hyperglycemia, unspecified; R63.5 Abnormal weight gain; I10 Essential (primary) hypertension; R53.83 Other fatigue | CPT/HCPCS: 80076; 84270; 84402; 84403 ==

== ENCOUNTER 2023-10-02 08:09 | Outpatient (CLI) | payer OTHER, SELFPAY ==
--- OUTSIDE RECORDS SUMMARY | 2023-10-04 06:37 | XMS_ITS | Referral Summary ---
Author Name Unknown Organization [facility] Address [address] [place] [id number] Care Team Providers Care Stiff Leg Derrick Operator Name Role Phone [facility], [facility] Primary Care Provider Medications Medication Sig Dispensed Refills Start Date End Date Status dexamethasone (DECADRON) 4 MG tablet Take 8 mg by mouth once for 1 dose Take on Monday (11/05) is still symptomatic. 2 tablet 0 11/03/2018 Active lisinopril (ZESTRIL) 10 MG tablet Take 1 tablet (10 mg) by mouth daily for 30 doses 30 tablet 0 03/25/2020 Active Social History Tobacco Use Types Packs/Day Years Used Date Smoking Tobacco: Never Smokeless Tobacco: Never Alcohol Use Standard Drinks/Week Comments Yes 0 (1 standard drink = 0.6 oz pur e alcohol) socially Sex and Gender Information Value Date Recorded Sex Assigned at Not on file Gender Identity Not on file Sexual Orientation Not on file Last Filed Vital Signs Vital Sign Reading Time Taken Comments Blood Pressure 149/85 03/25/2020 7:30 PM CDT Pulse 71 03/25/2020 7:30 PM CDT Temperature 36.8 ??C (98.2 ??F) 03/25/2020 5:26 PM CD T Respiratory Rate 22 03/25/2020 7:30 PM CDT Oxygen Saturation 93% 03/25/2020 7:30 PM CDT Inhaled Oxygen Concentration - - Weight 111.1 kg (245 lb) 11/03/2018 4:33 AM FLIGHT DIRECTOR Height 180.3 cm (5' 11) 11/03/2018 4:33 AM FLIGHT DIRECTOR Body Mass Index 34.17 11/03/2018 4:33 AM FLIGHT DIRECTOR Plan of Treatment Not on file Care Teams Stiff Leg Derrick Operator Relationship Specialty Start Date End Date [facility], [facility] [address] [address] [place], [place] [id number] PCP - General 03/25/20
--- OUTSIDE RECORDS SUMMARY | 2023-10-04 06:37 | XMS_ITS | Clinical Summary ---
Author Name Unknown Organization [facility] Address [address] [place] [id number] Care Team Providers Care Adz Worker Name Role Phone [facility], [facility] Primary [...] 111.1 kg (245 lb) 11/03/2018 4:33 AM SMALL BUSINESS REPRESENTATIVE Height 180.3 cm (5' 11) 11/03/2018 4:33 AM SMALL BUSINESS REPRESENTATIVE Body Mass Index 34.17 11/03/2018 4:33 AM SMALL BUSINESS REPRESENTATIVE Plan of Treatment Not on file Care Teams Adz Worker Relationship Specialty Start Date End Date [facility], [facility] [address] [address] [place], [place] [id number] PCP - General 03/25/20
--- OUTSIDE RECORDS SUMMARY | 2023-10-04 06:37 | XMS_ITS | Continuity of Care Document ---
Author Name [facility] Organization [facility] Care Team Providers Care Purchasing Administrator Name Role Phone [facility] Unavailable Unavailable Problems Combined list of problems from Department of Defense and Veterans Affairs facilities. It does not include entries that were removed or entered in error. Problem Status Onset Date Problem Type Date of Resolution Comments Source Aftercare Following Surgery Of Genitourinary System Inactive Condition [facility] conditions influencing health status Active Condition DoD visit for: services physical Active Condition [facility] testicular cancer Active Condition DoD Testes Mass (___cm) Active Condition Do D visit for: ears / hearing exam Active Condition [facility] visit for: occupational health / fitness exam Active Condition [facility] visit for: administrative purpose Inactive Condition [facility] Medications Combined list of outpatient medications from Department of Defense and Veterans Affairs facilities.Medications provided include 1) outpatient medications from the last 15 months, and 2) patient-reported medications. Medication Details Route Status Patient Instructions Prescription Expires Prescription Number Last Dispense Date Ordering Provider Order Date Source diclofenac sodium 50 mg oral delayed release tablet diclofen ac sodium 50 mg oral delayed release tablet Start Date: 07/29/21 Status: Ordered Ordered No Facilit y Access lisinopril 10 mg oral tablet lisinopr il 10 mg oral tablet Start Date: 05/13/21 Status: Ordered Ordered No Facilit y Access TESTOSTERON E CYPIONATE (testostero ne cypionate), 200 MG/ML, VIAL, INTRAMUSC, PERRIGO/PAD AGIS, 1 ml TESTOSTE ISHA CYPIONAT E (testost erone cypionat e), 200 MG/ML, VIAL, INTRAMUS C, PERRIGO/ PADAGIS, 1 ml Start Date: 09/26/21 Status: Ordered Ordered No Facilit y Access TESTOSTERON E CYPIONATE (TESTOSTERO NE CYPIONATE), 200 MG/ML, VIAL, INTRAMUSC, SUN PHARMACEUTI , 1 ml TESTOSTE ISHA CYPIONAT E (TESTOST ERONE CYPIONAT E), 200 MG/ML, VIAL, INTRAMUS C, SUN PHARMACE UTI, 1 ml Start Date: 11/20/21 Status: Ordered Ordered No Facilit y Access TESTOSTERON E CYPIONATE (TESTOSTERO NE CYPIONATE), 200 MG/ML, VIAL, INTRAMUSC, [facility] 10 ml VIAL Active [id number] 2023 Pharmac y Data Transac tion Service Facilit y Allergies, Adverse Reactions, Alerts Combined list of allergies from Department of Defense and Veterans Affairs facilities. It does not include entries that were removed or entered in error. Substance Category Reaction Severity Reaction type Status Date Reported Comments Source No Known Allergies Drug allergy (disorder) active 04/03/2012 [place] [facility] Immunizations Combined list of available immunizations from the Department of Defense and Veterans Affairs facilities. Immunization Series Date Given Administered By Site Reaction Lot Number CVX Code Drug Chief Clinical Dietitian Status Comments Source influenza, injectable, quadrivalent 2021 [id number] GlaxoSmithKli ne complet ed influenza , injectabl e, quadrival ent 12/11/21 Given Ambulat ory Pharmac y influenza, injectable, quadrivalent, contains preservative 0 2021 [id number] 158 Harvest Trendsine (SKB) complet ed influenza , injectabl e, quadrival ent, contains preservat ilana DoD COVID Vaccine Pfizer 2020 [id number] 208 PFIZER complet ed COVID Vaccine Pfizer 07/13/21 Given Ambulat ory Pharmac y SARS-COV-2 (COVID-19) vaccine, mRNA, spike protein, LNP, preservative free, 30 mcg/0.3mL dose 2 2020 [id number] 208 Pfizer, Inc (PFR) complet ed SARS-COV- 2 (COVID-19 ) vaccine, mRNA, spike protein, LNP, preservat ilana free, 30 mcg/0.3mL dose DoD COVID Vaccine Pfizer 2020 [id number] 208 PFIZER complet ed COVID Vaccine Pfizer 06/22/21 Given Ambulat ory Pharmac y SARS-COV-2 (COVID-19) vaccine, mRNA, spike protein, LNP, preservative free, 30 mcg/0.3mL dose 1 2020 [id number] 208 Pfizer, Inc (PFR) complet ed SARS-COV- 2 (COVID-19 ) vaccine, mRNA, spike protein, LNP, preservat ilana free, 30 mcg/0.3mL dose DoD influenza, injectable, quadrivalent- pf 2019 UNK 150 Seqirus complet ed influenza , injectabl e, quadrival ent-pf 07/02/20 Given Ambulat ory Pharmac y Influenza, injectable, quadrivalent, preservative free 0 2019 UNK 150 Seqirus (SEQ) comple t ed Influenza , injectabl e, quadrival ent, preservat ilana free DoD tetanus, diphtheria, acellular pertu is 2019 UNK 115 sanofi pasteur complet ed tetanus, diphtheri a, acellular pertussis 05/04/20 Given Ambulat ory Pharmac y tetanus toxoid, reduced diphtheria toxoid, and acellular pertu is vaccine, adsorbed 2 2019 UNK 115 Sanofi Pasteur ([facility]) complet ed tetanus toxoid, reduced diphtheri a toxoid, and acellular pertussis vaccine, adsorbed DoD influenza, injectable, quadrivalent- pf 2018 UNK 150 Seqirus complet ed influenza , injectabl e, quadrival ent-pf 08/14/19 Given Ambulat ory Pharmac y Influenza, injectable, quadrivalent, preservative free 0 2018 UNK 150 Seqirus (SEQ) comple t ed Influenza , injectabl e, quadrival ent, preservat ilana free DoD influenza, injectable, quadrivalent- pf 2017 [id number] 150 GlaxoSmithKli ne complet ed influenza , injectabl e, quadrival ent-pf 08/11/18 Given Ambulat ory Pharmac y Influenza, injectable, quadrivalent, preservative free 0 2017 [id number] [facility] Influenza , injectabl e, quadrival ent, preservat ilana free DoD influenza virus vaccine, inactivated 2016 UNK 88 Seqirus complet ed influenza virus vaccine, inactivat ed 07/09/17 Given Ambulat ory Pharmac y Influenza, injectable, [facility] [place] Canine Kidney, quadrivalent with preservative 0 2016 UNK 186 Seqirus (SEQ) comple t ed Influenza , injectabl e, Madin [place] Canine Kidney, quadrival ent with preservat ilana DoD influenza, injectable, quadrivalent 2015 [id number] 158 GlaxoSmithKli ne complet ed influenza , injectabl e, quadrival ent 08/11/16 Given Ambulat ory Pharmac y influenza, injectable, quadrivalent, contains preservative 0 2015 [id number] 158 [facility] (SKB) complet ed influenza , injectabl e, quadrival ent, contains preservat ilana DoD influenza, seasonal, injectable-pf 2014 UNK 140 complet ed influenza , seasonal, injectabl e-pf 09/24/15 Given Ambulat ory Pharmac y Influenza, seasonal, injectable, preservative free 0 2014 UNK 140 (TRN) complet ed Influenza , seasonal, injectabl e, preservat ilana free DoD influenza, live, intranasal,qu adrivalent 2013 [id number] 149 AGM Automotive[employer] Inc comple t ed influenza , live, intranasa l,quadriv alent 06/14/14 Given Ambulat ory Pharmac y influenza, live, intranasal, quadrivalent 0 2013 [id number] 149 Trly Uniq, Inc. (MED) complet ed influenza , live, intranasa l, quadrival ent DoD influenza, seasonal, intradermal-p f 2012 [id number] 144 sanofi pasteur complet ed influenza , seasonal, intraderm al-pf 06/08/13 Given Ambulat ory Pharmac y seasonal influenza, intradermal, preservative free 0 2012 [id number] 144 Sanofi Pasteur ([facility]) complet ed seasonal influenza , intraderm al, preservat ilana free DoD influenza, seasonal, injectable-pf 2011 [id number] 140 CSL Behring complet ed influenza , seasonal, injectabl e-pf 08/11/12 Given Ambulat ory Pharmac y Influenza, seasonal, injectable, preservative free 0 2011 [id number] 140 Lumedyne Technologies[employer], Inc. (CSL) complet ed Influenza , seasonal, injectabl e, preservat ilana free DoD influenza virus vaccine, live 2010 UNK 111 MediTrack the Betune Inc comple t ed influenza virus vaccine, live 06/12/11 Given Ambulat ory Pharmac y influenza virus vaccine, live, attenuated, for intranasal use 0 2010 UNK 111 Trly Uniq, Inc. (MED) complet ed influenza virus vaccine, live, attenuate d, for intranasa l use DoD influenza virus vaccine, live 2009 [id number] 111 Mediune Inc comple t ed influenza virus vaccine, live 08/13/10 Given Ambulat ory Pharmac y hepatitis A-hepatitis B vaccine 2009 [id number] [id number] 104 GlaxoSmithKli ne complet ed hepatitis A-hepatit is B vaccine 08/13/10 Given Ambulat ory Pharmac y hepatitis A and hepatitis B vaccine 3 2009 [id number] [id number] 104 Smithine (SKB) complet ed hepatitis A and hepatitis B vaccine DoD influenza virus vaccine, live, attenuated, for intranasal use 0 2009 [id number] 111 Trly Uniq, Inc. (MED) complet ed influenza virus vaccine, live, attenuate d, for intranasa l use DoD hepatitis A-hepatitis B vaccine 2009 [id number] [id number] 104 GlaxoSmithKli ne complet ed hepatitis A-hepatit is B vaccine 03/07/10 Given Ambulat ory Pharmac y hepatitis A and hepatitis B vaccine 2 2009 [id number] 4AA 104 Smithine (SKB) complet ed hepatitis A and hepatitis B vaccine DoD tetanus, diphtheria, acellular pertu is 2009 [id number] 115 GlaxoSmithKli ne complet ed tetanus, diphtheri a, acellular pertussis 01/16/10 Given Ambulat ory Pharmac y hepatitis A-hepatitis B vaccine 2009 [id number] 4AA 104 GlaxoSmithKli ne complet ed hepatitis A-hepatit is B vaccine 01/16/10 Given Ambulat ory Pharmac y poliovirus vaccine, inactivated 2009 [id number] 10 MediTrack the Betune Inc comple t ed polioviru s vaccine, inactivat ed 01/16/10 Given Ambulat ory Pharmac y measles/mumps /rubella virus vaccine 2009 [id number] Merck & Company Inc complet ed measles/m umps/rube lla virus vaccine 01/16/10 Given Ambulat ory Pharmac y measles, mumps and rubella virus vaccine 0 2009 [id number] 03 Merck (MSD) complet ed measles, mumps and rubella virus vaccine DoD poliovirus vaccine, inactivated 0 2009 [id number] 10 Trly Uniq, Inc. (MED) complet ed polioviru s vaccine, inactivat ed DoD hepatitis A and hepatitis B vaccine 1 2009 [id number] 4AA 104 SmithKline (SKB) complet ed hepatitis A and hepatitis B vaccine DoD tetanus toxoid, reduced diphtheria toxoid, and acellular pertu is vaccine, adsorbed 0 2009 [id number] 6BA 115 SmithKline (SKB) complet ed tetanus toxoid, reduced diphtheri a toxoid, and acellular pertussis vaccine, adsorbed DoD measles/mumps /rubella virus vaccine 1995 UNK 03 Merck & Company Inc complet ed measles/m umps/rube lla virus vaccine 07/23/96 Given Ambulat ory Pharmac y measles, mumps and rubella virus vaccine 1 1995 UNK 03 Merck (MSD) complet ed measles, mumps and rubella virus vaccine DoD Results Combined list of recent chemistry, hematology and other laboratory results from Department of Defense and Veterans Affairs, ranging from 15 months to all on record, depending upon the facility. Order Name Results Value Reference Range Date Interpretation Specimen Comments Source COVID- 19 AND FLU/RS V DIAG PANEL( CEPHEI D) SARS-RELATE D CORONAVIRUS RNA [PRESENCE] IN RESPIRATORY SPECIMEN BY LUCRECIA WITH PROBE DETECTION DETECTED 10/04 HH Specimen Type: NASOPHARYNG EAL Comment: CepAchieve Xid ApplyfulXpert (618) Ordering Provider: ZHANNA MONTERO Report Released Date/Time: Oct 04, 2021 11:22 AM Reporting Lab: [facility] [id number] Performing Lab: [facility] [id number] [facility]- [facility] AND FLU/RS V DIAG PANEL( CEPHEI D) INFLUENZA VIRUS A RNA [PRESENCE] IN UPPER RESPIRATORY SPECIMEN BY LUCRECIA WITH PROBE DETECTION Not Detected 10/04 Specimen Type: NASOPHARYNG EAL Comment: Jelly HQid GeneXpert (618) Ordering Provider: ZHANNA MONTERO Report Released Date/Time: Oct 04, 2021 11:22 AM Reporting Lab: [facility] [id number] Performing Lab: [facility] [address] [facility] COVID- 19 AND FLU/RS V DIAG PANEL( CEPHEI D) INFLUENZA VIRUS B RNA [PRESENCE] IN UPPER RESPIRATORY SPECIMEN BY LUCRECIA WITH PROBE DETECTION Not Detected 10/04 Specimen Type: NASOPHARYNG EAL Comment: Cepheid GeneXpert (898) Ordering Provider: ZHANNA MONTERO Report Released Date/Time: Oct 04, 2021 11:22 AM Reporting Lab: [facility] [id number] Performing Lab: [facility] [address] [facility] COVID- 19 AND FLU/RS V DIAG PANEL( CEPHEI D) RESPIRATORY SYNCYTIAL VIRUS RNA [PRESENCE] IN UPPER RESPIRATORY SPECIMEN BY LUCRECIA WITH PROBE DETECTION Not Detected 10/04 Specimen Type: NASOPHARYNG EAL Comment: Cepheid GeneXpert (268) Ordering Provider: ZHANNA MONTERO Report Released Date/Time: Oct 04, 2021 11:22 AM Reporting Lab: [facility] [phone] Performing Lab: [facility] [address] [facility] Vital Signs Combined list of inpatient and outpatient Vital Signs from [facility] of [facility] and Veterans Affairs, ranging from 12 months to all on record, depending upon the facility. Vital Sign Value Date Comments Source No data available for this section Ambulatory Pharmacy Encounters Combined list of: 1) Encounters from Department of Veterans Affairs facilities going back up to thelast 18 months. 2) Encounters from the Department of [facility] facilities going back up to 280 months. Location Location Details Encounter Type Encounter Number Reason For Visit Attending Provider ADM Date DC Date Status Disposition Source [place] [facility] OUTPATIENT [id number] JUAN Cash 04/03 [place] Limitations [place] [place] [facility] OUTPATIENT [id number] Audiogr GABRIEL Zimmerman 04/03 [place] Limitations [place] [place] [place] [facility] OUTPATIENT [id number] elma reyna l [id number] TAMMY HUFFMAN 04/09 [place] Limitations [place] [facility] [place] [facility] OUTPATIENT [id number] Notes Entered by: Orestes SHEEHAN 18 Apr 2012 0934 ------- ------- ------- ------- -- Testicu ANGELES Ramsay 04/18 [place] [facility] [place] [facility] TELE CONSULT [id number] Notes Entered by: TAMMY YORK 20 Apr 2012 0842 ------- ------- ------- ------- -- F/u on TAMMY HUFFMAN 04/19 [place] [place]( [facility]) OUTPATIENT [id number] Notes Entered by: Orestes SHEEHAN 26 Apr 2012 1150 ------- ------- ------- ------- -- post op and lab work follow up ANGELES TAYLOR 04/26 [facility] [id number] Notes Entered by: Orestes SHEEHAN 02 May 2012 1359 ------- ------- ------- ------- -- follow up ANGELES TAYLOR 05/02 Released w/o Limitations [facility] ) [facility]) OUTPATIENT [id number] PATIENT INTAKE TAMMY OLSON 06/04 Released w/o Limitations [facility]( ed [facility]) [facility]ag[facility]) OUTPATIENT [id number] Notes Entered by: LORI ALFARO 04 Jun 2012 1356 ------- ------- ------- ------- -- CASE MANAGEM ENT LORI ALFARO 06/04 Released w/o Limitations [facility](S D Case Managem ent) [facility] OUTPATIENT [id number] Notes Entered by: JANELLE GRIDER 05 Jun 2012 0854 ------- ------- ------- ------- -- W/I pre-op ANGELES TAYLOR 06/05 Released w/o Limitations [facility] ) [facility] OTHER THAN [facility] OR [facility] [id number] SENABBY RAMIREZ Maite 06/07 RETURNED TO [facility]) TELE CONSULT [id number] Notes Entered by: VETO PIEDRA 12 Jun 2012 1623 ------- ------- ------- ------- -- Postop call back PAPI ALLISON 06/12 Referred for Appointment [facility] ) [facility]) OUTPATIENT [id number] post op follow- up/Lap RPLND Robotic Surgery ANGELES TAYLOR 06/18 Released w/o Limitations [facility] ) [facility] OUTPATIENT [id number] Notes Entered by: JANELLE GRIDER 05 Jul 2012 1041 ------- ------- ------- ------- -- F/u w/i ANGELES TAYLOR 07/05 Released w/o Limitations [facility] ) [facility]([place] [facility] OUTPATIENT [id number] Notes Entered by: LORI ALFARO 13 Jul 2012 1354 ------- ------- ------- ------- -- CASE MANAGEM ENT LORI ALFARO 07/13 Released w/o Limitations [facility] Case Managem ent) [facility] TELE CONSULT [id number] Notes Entered by: LORRAINE BARKSDALE 02 Aug 20121956 ------- ------- ------- ------- -- Fit for duty NIMA BARKSDALE 08/03 [facility] ) [facility]) TELE CONSULT [id number] TAMMY OLSON 08/03 [facility]) [facility]) OUTPATIENT [id number] Notes Entered by: LORI ALFARO 10 Aug 2012 1117 ------- ------- ------- ------- -- CASE MANAGEM ENT LORI ALFARO 08/10 Released w/o Limitations [facility](S D Case Managem ent) [facility]) OUTPATIENT [id number] Notes Entered by: LORI ALFARO 20 Aug 2012 0804 ------- ------- ------- ------- -- CASE MANAGEM ENT LORI ALFARO 08/20 Released w/o Limitations [facility](S D Case Managem ent) [facility] Support Activity [facility] [facility] OUTPATIENT [id number] Bilater al foot pain, and hogue pain ABBY DUMAS 01/28 Released w/o Limitations [facility] Support Activit y [place] ([facility] OUTPATIENT [id number] 3 Blood Pressur e eval Initial BABY DUMAS 02/03 Released w/o Limitations [facility] Support Activit y [place] ([facility] Support [facility] [facility] OUTPATIENT [id number] 1 Sleep disturb rashaun burns e reej for Sleep study ABBY DUMAS 03/04 Released w/o Limitations [facility] Support Activit y [place] ([facility]) Procedures Combined list of: 1) Procedures from Department of Veterans Affairs facilities going back up to thelast 18 months, not all VA non-surgical procedures are included; 2) All procedures from the Department of Defense facilities. Procedure Procedure Type Code Date Perfomer Comments Sourc e No data available for this section Ambulato ry Pharmacy Case Management, each 15 minutes 08/20/20 12 LORI ALFARO [facility] Coordinated care fee, risk adjusted maintenance 08/20/20 12 [facility] Coordinated care fee, risk adjusted maintenance 08/10/20 12 LORI ALFARO [facility] Case Management, each 15 minutes 08/10/20 12 LORI ALFARO [facility] Coordinated care fee, risk adjusted maintenance 07/16/20 12 LORI ALFARO [facility] Case Management, each 15 minutes 07/16/20 12 LORI ALFARO [facility] Coordinated care fee, risk adjusted maintenance, Level 3 06/04/20 12 LORI ALFARO [facility] Case Management, each 15 minutes 06/04/20 12 LORI ALFARO [facility] Audiometry Group Testing Audiometry Group Testing [id number] 04/03/20 12 GABRIEL COLÓN Audiogram WNL [facility] ECG Performance of Tracing Only ECG Performance of Tracing Only 51783 04/03/20 12 UJAN LOVELACE Visual Function Screening Visual Function Screening [id number] 04/03/20 12 JUAN LOVELACE OPHTHALMOLOGICAL SERVICES: MEDICAL EXAMINATION AND EVALUATION WITH INITIATION OF DIAGNOSTIC AND TREATMENT PROGRAM; INTERMEDIATE, NEW PATIENT 06/06/20 [facility] AUDIOMETRIC TESTING OF GROUPS 05/19/20 [facility] OPHTHALMOLOGICAL SERVICES: MEDICAL EXAMINATION AND EVALUATION WITH INITIATION OF DIAGNOSTIC AND TREATMENT PROGRAM; INTERMEDIATE, NEW PATIENT 05/19/20 DoD CASE MANAGEMENT, EACH 15 MINUTES 08/20/20 12 [facility] COORDINATED CARE FEE, RISK ADJUSTED MAINTENANCE 08/10/20 12 [facility] COORDINATED CARE FEE, RISK ADJUSTED MAINTENANCE 07/13/20 12 [facility] REGIONAL LYMPH NODE EXCISION 06/12/20 12 [facility] LAPAROSCOPIC ROBOTIC ASSISTED PROCEDURE 06/12/20 12 [facility] POSTOPERATIVE FOLLOW-UP VISIT, NORMALLY INCLUDED IN THE SURGICAL PACKAGE, INDICATE THAT EVALUATION & MANAGEMENT SERVICE WAS PERFORMED DURING A POSTOPERATIVE PERIOD REASON RELATED ORIGINAL PROCEDURE 06/12/20 12 [facility] POSTOPERATIVE FOLLOW-UP VISIT, NORMALLY INCLUDED IN THE SURGICAL PACKAGE, INDICATE THAT EVALUATION & MANAGEMENT SERVICE WAS PERFORMED DURING A POSTOPERATIVE PERIOD REASON RELATED ORIGINAL PROCEDURE 06/11/20 12 [facility] POSTOPERATIVE FOLLOW-UP VISIT, NORMALLY INCLUDED IN THE SURGICAL PACKAGE, INDICATE THAT EVALUATION & MANAGEMENT SERVICE WAS PERFORMED DURING A POSTOPERATIVE PERIOD REASON RELATED ORIGINAL PROCEDURE 06/10/20 12 [facility] POSTOPERATIVE FOLLOW-UP VISIT, NORMALLY INCLUDED IN THE SURGICAL PACKAGE, INDICATE THAT EVALUATION & MANAGEMENT SERVICE WAS PERFORMED DURING A POSTOPERATIVE PERIOD REASON RELATED ORIGINAL PROCEDURE 06/09/20 12 [facility] POSTOPERATIVE FOLLOW-UP VISIT, NORMALLY INCLUDED IN THE SURGICAL PACKAGE, INDICATE THAT EVALUATION & MANAGEMENT SERVICE WAS PERFORMED DURING A POSTOPERATIVE PERIOD REASON RELATED ORIGINAL PROCEDURE 06/08/20 [facility] SURGICAL TECHNIQUES REQUIRING USE OF ROBOTIC SURGICAL SYSTEM (LIST SEPARATELY IN ADDITION TO CODE FOR PRIMARY PROCEDURE) 06/07/20 [facility] COORDINATED CARE FEE, RISK ADJUSTED MAINTENANCE, LEVEL 3 06/04/20 [facility] THERAPEUTIC, PROPHYLACTIC, OR DIAGNOSTIC INJECTION (SPECIFY SUBSTANCE OR DRUG); SUBCUTANEOUS OR INTRAMUSCULAR 05/06/20 [facility] UNLISTED SPECIAL SERVICE, PROCEDURE OR REPORT 04/18/20 [facility] AUDIOMETRIC TESTING OF GROUPS 04/03/20 [facility] ELECTROCARDIOGRAM, ROUTINE ECG WITH AT LEAST 12 LEADS; TRACING ONLY, WITHOUT INTERPRETATION AND REPORT 04/03/20 [facility] Social History Combined list of available smoking, tobacco, and other social history from Department of Defense and Veterans Affairs facilities. Social History Type Response Date Comment [facility] e This section is an empty social history section. DoD Assessment and Plan Combined list of future care activities from Department of Defense and Veterans Affairs facilities (e.g., assessment and plan notes, appointments, orders, and referrals). Additional future care activities may be listed in the Plan of Care section. Result Assessment and Plan Date Source Assessment and Plan No data available for this section 10/04/2023 Ambulatory Pharmacy Functional Status Combined list of recent functional and cognitive assessments recorded at Department of Defense and Veterans Affairs (VA).VA Functional [place] Measurement (FIM) Scale: 1 = Total Assistance (Subject = 0% +), 2 = Maximal Assistance (Subject = 25% +), 3 = Moderate Assistance (Subject = 50% +), 4 = Minimal Assistance (Subject = 75% +), 5 = Supervision, 6 = Modified [place] (Device), 7 = Complete [place] (Timely, Safely). Assessment Date/Time Source Assessment Type Assessment Skill Assessment Score Assessment Details No data available for this section
== END 2023-10-02 08:10 | disposition home or self-care (01) ==
LOC: NFLDREF 10-04 06:34
PROVIDERS: PCP Family Medicine; Referring Provider Family Medicine; Visit Provider Family Medicine
DX: E29.1 Testicular hypofunction (principal); I10 Essential (primary) hypertension; R53.83 Other fatigue; Z12.5 Encounter for screening for malignant neoplasm of prostate; R79.89 Other specified abnormal findings of blood chemistry; Z90.79 Acquired absence of other genital organ(s); E78.00 Pure hypercholesterolemia, unspecified
CPT/HCPCS: 80053; 80061; 84270; 84402; 84403; 84443; G0103

== ENCOUNTER 2024-06-11 08:17 | Outpatient (CLI) | payer OTHER, SELFPAY ==
--- OUTSIDE RECORDS SUMMARY | 2024-06-11 08:39 | XMS_ITS | Continuity of Care Document ---
Author Name [facility] Organization [facility] Care Team Providers Care Retail Marketing Executive Name Role Phone [facility] Unavailable Unavailable Problems Combined list of problems from Department of Defense and Veterans Affairs facilities. It does not include entries that were removed or entered in error. Problem Status Onset Date Problem Type Date of Resolution Comments Source Aftercare Following Surgery Of Genitourinary System Inactive Condition [facility] conditions influencing health status Active Condition DoD visit for: services physical Active Condition [facility] testicular cancer Active Condition DoD Testes Mass (___cm) Active Condition Do D visit for: ears / hearing exam Active Condition [facility] visit for: occupational health / fitness exam Active Condition [facility] visit for: administrative purpose Inactive Condition [facility] Medications Combined list of outpatient medications from Department of Defense and Veterans Affairs facilities.Medications provided include 1) outpatient medications from the last 15 months, and 2) patient-reported medications. Medication Details Route Status Patient Instructions Prescription Expires Prescription Number Last Dispense Date Ordering Provider Order Date Order Qty Source BUPROPION XL (bupropion HCl), 300 MG, TAB ER 24H, ORAL, LUPIN PHARMACEU, 500 ea. BOTTLE Active [id number] 2023 90 Pharmac y Data Transac tion Service Facilit y diclofenac sodium 50 mg oral delayed release tablet diclofen ac sodium 50 mg oral delayed release tablet Start Date: 07/29/21 Status: Ordered Ordered No Facilit y Access lisinopril 10 mg oral tablet lisinopr il 10 mg oral tablet Start Date: 05/13/21 Status: Ordered Ordered No Facilit y Access LUER-SHANE SYRINGE-NEE DLE (syringe with needle,disp osable, 3 mL), 25GX1, DISP SYRIN, MISCELL, BD MEDICAL SURG, 100 ea. BOX Cancele d [id number] : 2023 0 Pharmac y Data Transac tion Service Facilit y LUER-SHANE SYRINGE-NEE DLE (syringe with needle,disp osable, 3 mL), 25GX1, DISP SYRIN, MISCELL, BD MEDICAL SURG, 100 ea. BOX Active [id number] 2023 12 Pharmac y Data Transac tion Service Facilit y REGULAR BEVEL NEEDLES (needles, disposable) , 18GX1, DIS NEEDLE, MISCELL, BD MEDICAL SURG, 100 ea. BOX Active [id number] 2023 12 Pharmac y Data Transac tion Service Facilit y REGULAR BEVEL NEEDLES (needles, disposable) , 18GX1, DIS NEEDLE, MISCELL, BD MEDICAL SURG, 100 ea. BOX Active [id number] 2023 12 Pharmac y Data Transac tion Service Facilit y TERBINAFINE HCL (TERBINAFIN E HCL), 250MG, TABLET, ORAL, AUROBINDO PHARM, 30 ea. BOTTLE Active [id number] 2023 14 Pharmac y Data Transac tion Service Facilit y TESTOSTERON E CYPIONATE (testostero ne cypionate), 200 MG/ML, VIAL, INTRAMUSC, AUROMEDICS- EUGI, 10 ml VIAL Active [id number] 2023 10 Pharmac y Data Transac tion Service Facilit y TESTOSTERON E CYPIONATE (testostero ne cypionate), 200 [...] SUN PHARMACE UTI, 1 ml Start Date: 08/14/21 Status: Ordered Ordered No Facilit y Access TESTOSTERON E CYPIONATE (TESTOSTERO NE CYPIONATE), 200 MG/ML, VIAL, INTRAMUSC, WEST-FAM,I NC., 10 ml VIAL Active [id number] 2023 10 Pharmac y Data Transac tion Service Facilit y TESTOSTERON E CYPIONATE (TESTOSTERO NE CYPIONATE), 200 MG/ML, VIAL, INTRAMUSC, WEST-FAM,I NC., 10 ml VIAL Cancele d [id number] : 2023 0 Pharmac y Data Transac tion Service Facilit y TESTOSTERON E CYPIONATE (TESTOSTERO NE CYPIONATE), 200 MG/ML, VIAL, INTRAMUSC, WEST-FAM,I NC., 10 ml VIAL Active [id number] 2023 10 Pharmac y Data Transac tion Service Facilit y Allergies, Adverse Reactions, Alerts Combined list of allergies from Department of Defense and Veterans Affairs facilities. It does not include entries that were removed or entered in error. Substance Category Reaction Severity Reaction type Status Date Reported Comments Source No Known Allergies Drug allergy (disorder) active 04/03/2012 [facility] Immunizations Combined list of available immunizations from the Department of Defense and Veterans Affairs facilities. Immunization Series Date Given Administered By Site Reaction Lot Number CVX Code Drug Base Filler Operator Status Comments Source influenza, injectable, quadrivalent 2021 [id number] GlaxoSmithKli ne complet ed influenza , injectabl e, quadrival ent 12/11/21 Given Ambulat ory Pharmac y influenza, injectable, quadrivalent, contains preservative 0 2021 [id number] 158 SmithKline (SKB) complet ed influenza , injectabl e, quadrival ent, contains preservat ilana DoD COVID Vaccine Pfizer 2020 [id number] PFIZER complet ed COVID Vaccine Pfizer 07/13/21 Given Ambulat ory Pharmac y SARS-COV-2 (COVID-19) vaccine, mRNA, spike protein, LNP, preservative free, 30 mcg/0.3mL dose 2 2020 [id number] 208 Pfizer, Inc (PFR) complet ed SARS-COV- 2 (COVID-19 ) vaccine, mRNA, spike protein, LNP, preservat ilana free, 30 mcg/0.3mL dose DoD COVID Vaccine Pfizer 2020 [id number] 208 PFIZER complet ed COVID Vaccine Pfizer 06/22/21 Given Ambulat ory Pharmac y SARS-COV-2 (COVID-19) vaccine, mRNA, spike protein, LNP, preservative free, 30 mcg/0.3mL dose 1 2020 [id number] 208 Pfizer, Inc (PFR) complet ed SARS-COV- [...] adsorbed 2 2019 UNK 115 Sanofi Pasteur (PMC) complet ed tetanus toxoid, reduced diphtheri a [...] quadrivalent, preservative free 0 2017 [id number] 150 Smithine (SKB) complet ed Influenza , injectabl e, quadrival ent, preservat ilana free DoD influenza virus vaccine, inactivated 2016 UNK 88 Seqirus complet ed influenza virus vaccine, inactivat ed 07/09/17 Given Ambulat ory Pharmac y Influenza, injectable, Madin [place] Canine Kidney, quadrivalent with preservative 0 2016 UNK 186 Seqirus (SEQ) comple t ed Influenza , injectabl e, Madin Margie Canine Kidney, quadrival ent with preservat ilana DoD influenza, injectable, quadrivalent 2015 [id number] 158 GlaxoSmithKli ne complet ed influenza , injectabl e, quadrival ent 08/11/16 Given Ambulat ory Pharmac y influenza, injectable, quadrivalent, contains preservative 0 2015 [id number] 158 SmithKline (SKB) complet ed influenza , injectabl e, quadrival ent, contains preservat ilana DoD influenza, seasonal, injectable-pf 2014 UNK 140 complet ed influenza , seasonal, injectabl e-pf 09/24/15 Given Ambulat ory Pharmac y Influenza, seasonal, injectable, preservative free 0 2014 UNK 140 (TRN) complet ed Influenza , seasonal, injectabl e, preservat ilana free DoD influenza, live, intranasal,qu adrivalent 2013 [id number] 149 MediImonomy Interactiveune Inc comple t ed influenza , live, intranasa l,quadriv alent 06/14/14 Given Ambulat ory Pharmac y influenza, live, intranasal, quadrivalent 0 2013 [id number] 149 MedImmSports Challenge Network, Inc. (MED) complet ed influenza , live, intranasa l, quadrival ent DoD influenza, seasonal, intradermal-p f 2012 [id number] 144 sanofi pasteur complet ed influenza , seasonal, intraderm al-pf 06/08/13 Given Ambulat ory Pharmac y seasonal influenza, intradermal, preservative free 0 2012 [id number] 144 Sanofi Pasteur (PMC) complet ed seasonal influenza , intraderm al, preservat ilana free DoD influenza, seasonal, injectable-pf 2011 [id number] 140 CSL Behring complet ed influenza , seasonal, injectabl e-pf 08/11/12 Given Ambulat ory Pharmac y Influenza, seasonal, injectable, preservative free 0 2011 [id number] 140 Softgate Systems, Inc. (CSL) complet ed Influenza , seasonal, injectabl e, preservat ilana free DoD influenza virus vaccine, live 2010 UNK 111 Medimmune Inc comple t ed influenza virus vaccine, live 06/12/11 Given Ambulat ory Pharmac y influenza virus vaccine, live, attenuated, for intranasal use 0 2010 UNK 111 Hive7, Inc. (MED) complet ed influenza virus vaccine, live, attenuate d, for intranasa l use DoD influenza virus vaccine, live 2009 [id number] [facility] t ed influenza virus vaccine, live [...] live, attenuated, for intranasal use 0 2009 [id number] 111 Hive7, Inc. (MED) complet ed influenza virus vaccine, live, attenuate d, for intranasa l use DoD hepatitis A-hepatitis B vaccine 2009 [id number] 4AA 104 GlaxoSmithKli ne complet ed hepatitis A-hepatit is B vaccine 03/07/10 Given Ambulat ory Pharmac y hepatitis A and hepatitis B vaccine 2 2009 [id number] 4AA 104 SmithKline (SKB) complet ed hepatitis A and hepatitis B vaccine DoD tetanus, diphtheria, acellular pertu is 2009 [id number] 115 GlaxoSmithKli ne complet ed tetanus, diphtheri a, acellular pertussis 01/16/10 Given Ambulat ory Pharmac y hepatitis A-hepatitis B vaccine 2009 [id number] 4AA 104 GlaxoSmithKli ne complet ed hepatitis A-hepatit is B vaccine 01/16/10 Given Ambulat ory Pharmac y poliovirus vaccine, inactivated 2009 [id number] 10 Modebo Inc comple t ed polioviru s vaccine, inactivat ed 01/16/10 Given Ambulat ory Pharmac y measles/mumps /rubella virus vaccine 2009 [id number] 03 Merck & Company Inc complet ed measles/m umps/rube lla virus vaccine 01/16/10 Given Ambulat ory Pharmac y measles, mumps and rubella virus vaccine 0 2009 [id number] 03 Merck (MSD) complet ed measles, mumps and rubella virus vaccine DoD poliovirus vaccine, inactivated 0 2009 B0476 10 Hive7, Inc. (MED) complet ed polioviru s vaccine, inactivat ed DoD hepatitis A and hepatitis B vaccine 1 2009 [id number] 4AA 104 SmithKline (SKB) complet ed hepatitis A and hepatitis B vaccine DoD tetanus toxoid, reduced diphtheria toxoid, and acellular pertu is vaccine, adsorbed 0 2009 [id number] 6BA 115 SmithKline (SKB) complet ed tetanus toxoid, reduced diphtheri a toxoid, and acellular pertussis vaccine, adsorbed DoD measles/mumps /rubella virus vaccine 1995 UNK 03 Merck & Company Inc complet ed measles/m umps/rube lla virus vaccine 07/23/96 Given Ambulat ory Pharmac y measles, mumps and rubella virus vaccine 1 1995 UNK 03 Merck (MSD) complet ed measles, mumps and rubella virus vaccine DoD Vital Signs Combined list of inpatient and [...] ADM Date DC Date Status Disposition Source [facility] [place] OUTPATIENT [id number] JUAN Cash 04/03 Released w/o Limitations [facility] [place] [facility] [place] [facility] OUTPATIENT [id number] Audiogr GABRIEL Zimmerman 04/03 [place] Limitations [place] [facility] [place] [facility] OUTPATIENT [id number] elma au [id number] TAMMY HUFFMAN 04/09 [place]/o Limitations [place] [place] [facility] OUTPATIENT [id number] Notes Entered by: Orestes SHEEHAN 18 Apr 2012 0934 ------- ------- ------- ------- -- Testicu ANGELES Ramsay 04/18 [place] ) [place] [facility] - [facility]) TELE CONSULT [id number] Notes Entered by: TAMMY YORK 20 Apr 2012 0842 ------- ------- ------- ------- -- F/u on TAMMY HUFFMAN 04/19 [place]) [place] [facility] OUTPATIENT [id number] Notes Entered by: Orestes SHEEHNA 26 Apr 2012 1150 ------- ------- ------- ------- -- post op and lab work follow up ANGELES TAYLOR 04/26 [place] Limitations [place] [place] [facility] OUTPATIENT [id number] Notes Entered by: Orestes SHEEHAN 02 May 2012 1359 ------- ------- ------- ------- -- follow up ANGELES TAYLOR 05/02 [facility]) OUTPATIENT [id number] PATIENT INTAKE TAMMY OLSON 06/04 Released w/o Limitations [facility] ed [facility]) [facility](SD Case Managemen t) OUTPATIENT [id number] Notes Entered by: LORI ALFARO 04 Jun 2012 1356 ------- ------- ------- ------- -- CASE MANAGEM ENT LORI ALFARO 06/04 Released w/o Limitations [facility](S D Case Managem ent) [facility] Urology) OUTPATIENT [id number] Notes Entered by: JANELLE GRIDER 05 Jun 2012 0854 ------- ------- ------- ------- -- W/I pre-op ANGELES TAYLOR 06/05 Released w/o Limitations [facility](S D Urology ) [facility] OTHER [facility] OR [facility] [id number] ABBY CHATTERJEE 06/[address] [facility] Urology) TELE CONSULT [id number] Notes Entered by: VETO PIEDRA 12 Jun 2012 1623 ------- ------- ------- ------- -- Postop call back PAPI ALLISON 06/12 Referred for Appointment [facility](S D Urology ) [facility] Urology) OUTPATIENT [id number] post op follow- up/Lap RPLND Robotic Surgery ANGELES TAYLOR 06/18 Released w/o Limitations [facility](S D Urology ) [facility]) OUTPATIENT [id number] Notes Entered by: JANELLE GRIDER 05 Jul 2012 1041 ------- ------- ------- ------- -- F/u w/i ANGELES TAYLOR 07/05 Released w/o Limitations [facility](S D Urology ) [facility](MA Case Managemen t) OUTPATIENT [id number] Notes Entered by: LORI ALFARO 13 Jul 2012 1354 ------- ------- ------- ------- -- CASE MANAGEM ENT LORI ALFARO 07/13 Released w/o Limitations [facility](S D Case Managem ent) [facility]rology) TELE CONSULT [id number] Notes Entered by: LORRAINE BARKSDALE 02 Aug 20121956 ------- ------- ------- ------- -- Fit for duty NIMA BARKSDALE 08/03 [facility](S D Urology ) [facility]) TELE CONSULT [id number] TAMMY OLSON 08/03 [facility](M ed [facility]) [facility](SD Case Managemen t) OUTPATIENT [id number] Notes Entered by: LORI ALFARO 10 Aug 2012 1117 ------- ------- ------- ------- -- CASE MANAGEM ENT LORI ALFARO 08/10 Released w/o Limitations [facility](S D Case Managem ent) [facility](SD Case Managemen t) OUTPATIENT [id number] Notes Entered by: LORI ALFARO 20 Aug 2012 0804 ------- ------- ------- ------- -- CASE MANAGEM ENT LORI ALFARO 08/20 Released w/o Limitations [facility](S D Case Managem ent) [facility] [employer] [place]([facility] [facility] OUTPATIENT [id number] Bilater al foot pain, and hogue pain ABBY DUMAS 01/28 Released w/o Limitations [facility] [place] ([facility] [employer] [place]([facility] [facility]) OUTPATIENT [id number] 3 Blood Pressur e eval Initial ABBY DUMAS 02/03 Released w/o Limitations [facility] [employer] [place] ([facility] [employer] [place]([facility] [facility]) OUTPATIENT [id number] Sleep disturb rashaun burns e req for Sleep study SHINTAMERAABBY Bacon IDALIA 03/04 Released w/o Limitations [facility] Navga Support Activella y [place] ([facility]) Procedures Combined list of: 1) Procedures from Department of Veterans Affairs facilities going back up to thelast 18 months, not all VA non-surgical procedures are included; 2) All procedures from the Department of Defense facilities. Procedure Procedure Type Code Date Perfomer [facility] e Case Management, each 15 minutes 08/20/20 12 [facility] Coordinated care fee, risk adjusted maintenance 08/20/20 12 [facility] Coordinated care fee, risk adjusted maintenance 08/10/20 12 [facility] Case Management, each 15 minutes 08/10/20 12 [facility] Coordinated care fee, risk adjusted maintenance 07/16/20 12 [facility] Case Management, each 15 minutes 07/16/20 12 [facility] Coordinated care fee, risk adjusted maintenance, Level 3 06/04/20 12 LORI ALFARO [facility] Case Management, each 15 minutes 06/04/20 12 [facility] Audiometry Group Testing Audiometry Group Testing [id number] 04/03/20 12 GABRIEL COLÓN Audiogram WNL [facility] ECG Performance of Tracing Only ECG Performance of Tracing Only [id number] 04/03/20 12 JUAN LOVELACE [facility] Visual Function Screening Visual Function Screening [id number] 04/03/20 12 JUAN LOVELACE [facility] OPHTHALMOLOGICAL SERVICES: MEDICAL EXAMINATION AND EVALUATION WITH INITIATION OF DIAGNOSTIC AND TREATMENT PROGRAM; INTERMEDIATE, NEW PATIENT 06/06/20 [facility] AUDIOMETRIC TESTING OF GROUPS 05/19/20 [facility] OPHTHALMOLOGICAL SERVICES: MEDICAL EXAMINATION AND EVALUATION WITH INITIATION OF DIAGNOSTIC AND TREATMENT PROGRAM; INTERMEDIATE, NEW PATIENT 05/19/20 DoD CASE MANAGEMENT, EACH 15 MINUTES 08/20/20 12 [facility] COORDINATED CARE FEE, RISK ADJUSTED MAINTENANCE 08/10/20 12 [facility] COORDINATED CARE FEE, RISK ADJUSTED MAINTENANCE 07/13/20 12 [facility] REGIONAL LYMPH NODE EXCISION 06/12/20 12 [facility] LAPAROSCOPIC ROBOTIC ASSISTED PROCEDURE 06/12/20 12 DoD POSTOPERATIVE FOLLOW-UP VISIT, NORMALLY INCLUDED IN THE SURGICAL PACKAGE, INDICATE THAT EVALUATION & MANAGEMENT SERVICE WAS PERFORMED DURING A POSTOPERATIVE PERIOD REASON RELATED ORIGINAL PROCEDURE 06/12/20 12 [facility] POSTOPERATIVE FOLLOW-UP VISIT, NORMALLY INCLUDED IN THE SURGICAL PACKAGE, INDICATE THAT EVALUATION & MANAGEMENT SERVICE WAS PERFORMED DURING A POSTOPERATIVE PERIOD REASON RELATED ORIGINAL PROCEDURE 06/11/20 12 [facility] POSTOPERATIVE FOLLOW-UP VISIT, NORMALLY INCLUDED IN THE SURGICAL PACKAGE, INDICATE THAT EVALUATION & MANAGEMENT SERVICE WAS PERFORMED DURING A POSTOPERATIVE PERIOD REASON RELATED ORIGINAL PROCEDURE 06/10/20 12 [facility] POSTOPERATIVE FOLLOW-UP VISIT, NORMALLY INCLUDED IN THE SURGICAL PACKAGE, INDICATE THAT EVALUATION & MANAGEMENT SERVICE WAS PERFORMED DURING A POSTOPERATIVE PERIOD REASON RELATED ORIGINAL PROCEDURE 06/09/20 12 [facility] POSTOPERATIVE FOLLOW-UP VISIT, NORMALLY INCLUDED IN THE SURGICAL PACKAGE, INDICATE THAT EVALUATION & MANAGEMENT SERVICE WAS PERFORMED DURING A POSTOPERATIVE PERIOD REASON RELATED ORIGINAL PROCEDURE 06/08/20 12 [facility] SURGICAL TECHNIQUES REQUIRING USE OF ROBOTIC SURGICAL SYSTEM (LIST SEPARATELY IN ADDITION TO CODE FOR PRIMARY PROCEDURE) 06/07/20 12 [facility] COORDINATED CARE FEE, RISK ADJUSTED MAINTENANCE, LEVEL 3 06/04/20 12 [facility] THERAPEUTIC, PROPHYLACTIC, OR DIAGNOSTIC INJECTION (SPECIFY SUBSTANCE OR DRUG); SUBCUTANEOUS OR INTRAMUSCULAR 05/06/20 22 [facility] UNLISTED SPECIAL SERVICE, PROCEDURE OR REPORT 04/18/20 [facility] AUDIOMETRIC TESTING OF GROUPS 04/03/20 [facility] ELECTROCARDIOGRAM, ROUTINE ECG WITH AT LEAST 12 LEADS; TRACING ONLY, WITHOUT INTERPRETATION AND REPORT 04/03/20 12 [facility] No data available for this section Ambulato ry Pharmacy Social History Combined list of available smoking, tobacco, and other social history from Department of Defense and Veterans Affairs facilities. Social History Type Response Date Comment Sour e This section is an empty social [...] Plan No data available for this section 06/11/2024 Ambulatory Pharmacy Functional Status Combined list of recent functional and cognitive assessments recorded at Department of Defense and Veterans Affairs (VA).VA Functional [place] Measurement (FIM) Scale: 1 = Total Assistance (Subject = 0% +), 2 = Maximal Assistance (Subject = 25% +), 3 = Moderate Assistance (Subject = 50% +), 4 = Minimal Assistance (Subject = 75% +), 5 = Supervision, 6 = Modified [place] (Device), 7 = Complete [place] (Timely, Safely). Assessment Date/Time Source Assessment Type Assessment Skill Assessment Score Assessment Details No data available for this section
--- OUTSIDE RECORDS SUMMARY | 2024-06-11 08:39 | XMS_ITS | Referral Summary ---
Author Organization [place] Address [facility] [place] [address] Care Team Providers Care Cardiology Nurse Name Role Phone Clinic, [facility] Primary Care Provider Medications Medication Sig Dispensed Refills Start Date End Date Status dexamethasone (DECADRON) 4 MG tablet Take 8 mg by mouth once for 1 dose Take on Monday (11/05) is still symptomatic. 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
--- OUTSIDE RECORDS SUMMARY | 2024-06-11 08:39 | XMS_ITS | Clinical Summary ---
Author Organization [place] Address [facility] [address] Care Team Providers Care Community Health Nurse Staff Name Role Phone Clinic, [facility] Primary [...] 111.1 kg (245 lb) 11/03/2018 4:33 AM SHIRT MARKER Height 180.3 cm (5' 11) 11/03/2018 4:33 AM SHIRT MARKER Body Mass Index 34.17 11/03/2018 4:33 AM SHIRT MARKER Plan of Treatment Not on file Care Teams Community Health Nurse Staff Relationship Specialty Start Date End Date Clinic, [facility] [place] [address] [place] [address] PCP - General 03/25/20
== END 2024-06-11 08:18 | disposition home or self-care (01) ==
PROVIDERS: PCP Family Medicine; Visit Provider Family Medicine
DX: Z00.00 Encounter for general adult medical examination without abnormal findings (principal); R53.83 Other fatigue; R79.89 Other specified abnormal findings of blood chemistry; E29.1 Testicular hypofunction; I10 Essential (primary) hypertension; C62.90 Malignant neoplasm of unspecified testis, unspecified whether descended or undescended
CPT/HCPCS: 80053; 80061; 82105; 84270; 84402; 84403; 84704

== ENCOUNTER 2025-01-13 08:30 | Outpatient (CLI) | payer OTHER, SELFPAY | END 2025-01-13 08:31 | disposition home or self-care (01) | LOC: NFLDREF 01-15 02:57 | PROVIDERS: PCP Family Medicine; Referring Provider Family Medicine; Visit Provider Family Medicine | DX: E29.1 Testicular hypofunction (principal); I10 Essential (primary) hypertension; Z13.6 Encounter for screening for cardiovascular disorders; Z12.5 Encounter for screening for malignant neoplasm of prostate | CPT/HCPCS: 80053; 80061; 84270; 84402; 84403; G0103 ==

== ENCOUNTER 2025-01-31 07:17 | Outpatient (CLI) | payer OTHER, SELFPAY ==
--- NOTE | 2025-01-31 07:15 | CRLHL7_ITS ---
For Patients: As a result of the Century Cures Act, medical imaging exams and procedure reports are released immediately into your electronic medical record. You may view this report before your referring provider. If you have questions, please contact your health care provider. INDICATION: Abnormal liver tests COMPARISON: 04/20/2020 TECHNIQUE: Real time montemayor scale imaging and color Doppler analysis was performed of the right upper quadrant. FINDINGS: Liver echotexture is diffusely coarsened/increased. No intrahepatic mass. There is a normal appearance of the hepatic IVC and proximal abdominal aorta. There is no evidence of ascites. The gallbladder is of normal size and there is no evidence of intraluminal stones or sludge. The gallbladder wall measures 3 mm in thickness. The common bile duct is of normal size and measures 6 mm in diameter at the level of the talon hepatis. The pancreas is obscured. There is no evidence of a stone or hydronephrosis within the right kidney. The right kidney measures 12.1 cm in length. IMPRESSION: Diffuse hepatic steatosis. No ascites. No intrahepatic mass. Findings are similar to the prior study. Dictated by Elmo Mcgraw MD @ 01/31/2025 12:53:57 PM (Electronically Signed)
== END 2025-01-31 07:18 | disposition home or self-care (01) ==
LOC: US 07:18
PROVIDERS: PCP Family Medicine; Visit Provider Family Medicine
DX: R79.89 Other specified abnormal findings of blood chemistry (principal); K76.0 Fatty (change of) liver, not elsewhere classified
CPT/HCPCS: 76705

== ENCOUNTER 2025-04-10 08:30 | Outpatient (CLI) | payer OTHER, SELFPAY | END 2025-04-10 08:31 | disposition home or self-care (01) | LOC: NFLDREF 04-12 08:21 | PROVIDERS: PCP Family Medicine; Referring Provider Family Medicine; Visit Provider Family Medicine | DX: E29.1 Testicular hypofunction (principal); R53.83 Other fatigue; R73.9 Hyperglycemia, unspecified; G47.30 Sleep apnea, unspecified; I10 Essential (primary) hypertension; E66.9 Obesity, unspecified | CPT/HCPCS: 80076; 84270; 84402; 84403 ==

== ENCOUNTER 2025-04-15 10:27 | Outpatient (CLI) | payer OTHER, SELFPAY | END 2025-04-15 10:28 | disposition home or self-care (01) | LOC: NFLDREF 04-18 07:53 | PROVIDERS: PCP Family Medicine; Referring Provider Family Medicine; Visit Provider Family Medicine | DX: E29.1 Testicular hypofunction (principal) | CPT/HCPCS: 84270; 84402; 84403 ==

== ENCOUNTER 2025-06-19 07:54 | Outpatient (CLI) | payer OTHER, SELFPAY | END 2025-06-19 07:55 | disposition home or self-care (01) | LOC: NFLDREF 06-23 03:30 | PROVIDERS: PCP Family Medicine; Referring Provider Family Medicine; Visit Provider Family Medicine | DX: E78.00 Pure hypercholesterolemia, unspecified (principal); D64.9 Anemia, unspecified; R53.83 Other fatigue | CPT/HCPCS: 80061; 80076; 84270; 84402; 84403 ==